=== PATIENT | male | born 1955 | race Caucasian/White ===

== ENCOUNTER → 2020-05-27 08:37 | Outpatient (REF) | payer BC, SELFPAY ==
--- NOTE | 2020-05-27 09:00 | CA_ITS ---
Transthoracic Echocardiogram Patient (Last, First, Middle): Bean Davila K Gender: Male Date of : 1955 Age: 64 Procedure Date: 05/27/2020 Procedure Type: Transthoracic Echocardiogram Location: OP Height: 170.18 cm Weight: 81.65 kg BSA: 1.93 m2 Heart Rate: bpm BP: 100 / 68 mmHg Pin Sticker: [id number] Referring MD: Fabrice Akhtar MD Block Captain: Fabrice Akhtar MD Symptoms: 148.0 PAF(paroxysmal atrial fibrillation 110 Essential HTN Study Quality: Fair ECG Rhythm: Sinus Conclusions: - 1. Normal LV systolic function with mild LVH with pseudonormal filling 2. Mildly dilated left atrium 3. No significant abnormality of cardiac valvular Doppler 4. Normal RV systolic pressure 5. No pericardial effusion Findings Left Ventricle Normal left ventricular size and systolic function. There is mildly increased left ventricular wall thickness. The visually estimated ejection fraction is between 60-65%. Spectral Doppler is indicative of a pseudonormal filling pattern. Right Ventricle Normal right ventricular cavity size and systolic function. Atria The left atrium is mildly dilated. Interatrial shunt cannot be excluded. The right atrium is normal in size. Aortic Valve There is mild thickening of the aortic valve. There is no aortic valve stenosis. There is trace (trivial) aortic valve regurgitation. Mitral Valve Likely normal mitral valve structure and function. There is trace mitral valve regurgitation. There is no mitral valve stenosis. Pulmonic Valve The pulmonic valve was not well visualized. Tricuspid Valve Likely normal tricuspid valve structure and function. There is trace tricuspid valve regurgitation. The right ventricular systolic pressure is normal. The right ventricular systolic pressure is 33 mmHg. There is no evidence of pulmonary hypertension. Great Vessels All visible segments of the aorta are normal in size. The pulmonary artery was not well visualized. Pericardium/Pleural There is no evidence of pericardial effusion. Prior Study Comparison Changes noted compared to prior study dated: 05/04/2018. pseudonormal filling pattern noted Measurements 2D Linear Measurements IVSd: 1.21 0.6-0.9/0.6-1.0 cm LVIDd: 4.30 3.9-5.3/4.2-5.9 cm LVIDs: 2.89 2.0-3.6 cm LVPWd: 1.33 0.7-1.1 cm Ao Root: 2.37 2.1-3.5 cm LV Mass: 249.50 67-162/88-224 g LVOT Diam: 1.96 3.0+(-)1.3 cm Mitral Valve MV Pk E: 0.98 MV PK A: 0.47 MV Decel Time: 218.34 E/A: 2.07 Decel Kings: 4.49 Aortic Valve AoV Pk Alfredo: 1.93 AoV Pk Grad: 14.86 LVOT LVOT Pk Alfredo: 1.30 LVOT Mn Alfredo: 0.80 LVOT VTI: 0.27 LVOT Pk Grad: 6.80 LVOT Mn Grad: 2.99 LVOT Diam: 1.96 LVOT Area: 3.03 Diastolic Function MV Pk E: 0.98 MV Pk A: 0.47 E/A: 2.07 Tricuspid Valve TR Pk Alfredo: 2.75 TR Pk Grad: 30.29 RA Press: 3.00 RVSP: 33.00 Great Vessels Aorta Ao Root-2D: 2.37 2.0-3.7 cm Ao Asc: 3.13 2.1-3.4 cm Updated in Other Vendor System with Status of Final Fabrice Akhtar MD electronically signed on 05/27/2020 2:42:15 PM with status of Final
== END ==
LOC: HO.CARD 08:37
PROVIDERS: PCP Internal Medicine; Visit Provider Internal Medicine Cardiovascular Disease
DX: I48.0 Paroxysmal atrial fibrillation (principal); I10 Essential (primary) hypertension
CPT/HCPCS: 93306

== ENCOUNTER → 2020-10-05 08:41 | Outpatient (BNVA) | payer BC, SELFPAY | PROVIDERS: PCP Internal Medicine; Visit Provider Internal Medicine Cardiovascular Disease | DX: I48.0 Paroxysmal atrial fibrillation (principal); I10 Essential (primary) hypertension; Z79.899 Other long term (current) drug therapy | CPT/HCPCS: 93005 ==

== ENCOUNTER → 2021-04-06 09:24 | Outpatient (BNVA) | payer BC, SELFPAY | PROVIDERS: PCP Internal Medicine; Referring Provider Internal Medicine; Visit Provider Internal Medicine Cardiovascular Disease | DX: I48.0 Paroxysmal atrial fibrillation (principal); I10 Essential (primary) hypertension; I25.10 Atherosclerotic heart disease of native coronary artery without angina pectoris; E11.9 Type 2 diabetes mellitus without complications | CPT/HCPCS: 93005 ==

== ENCOUNTER 2021-05-21 08:15 | Outpatient (REF) | payer BC, SELFPAY ==
[2021-05-21 11:25] LABS: MANUAL DIFF FLAG NO
[2021-05-21 11:41] LABS: Basophils Percent Auto 0.6 % (0-2); Eosinophils Absolute Auto 0.2 X10*3/uL (0.0-0.4); Eosinophils Percent Auto 2.9 % (0-4); Hematocrit 43.3 % (42-52); Imm Gran Abs Auto 0.04 X10*3/uL (0.00-0.03); Imm Gran Pct Auto 0.6 % (0.0-0.4); Lymphocytes Absolute Auto 1.2 X10*3/uL (1.2-4.9); Lymphocytes Percent Auto 20.1 % (20-40); Mean Corpuscular HGB Conc 32.3 g/dl (31.0-36.0); Mean Corpuscular Hemoglobin 32.9 pg (27.0-33.0); Mean Corpuscular Volume 101.9 fL (80-98); Mean Platelet Volume 10.9 fL (9.4-12.4); Monocytes Absolute Auto 0.7 X10*3/uL (0.1-1.2); Neutrophils Percent Auto 64.8 % (45-73); Platelet Count 244 X10*3/uL (160-400); Red Blood Count 4.25 X10*6/uL (4.60-5.80); Red Cell Distribution Width 12.4 % (11.0-16.0); White Blood Count 6.2 X10*3/uL (4.8-10.8)
[2021-05-21 11:48] LABS: Alanine Aminotransferase 22 U/L (0-40); Albumin Level 4.5 g/dL (3.5-5.0); Alkaline Phosphatase 39 U/L (39-117); Anion Gap 15 (12-20); Aspartate Amino Transferase 29 U/L (5-37); Bilirubin Total 0.5 mg/dL (0.0-1.0); Blood Urea Nitrogen 10 mg/dL (9-16); Calcium 9.4 mg/dL (8.4-10.2); Carbon Dioxide 26 mmol/L (22-29); Chloride 103 mmol/L (96-108); Cholesterol 171 mg/dL; Estimated Glomerular Filt Rate > 60; Glucose Fasting 126 mg/dL (60-99); HDL Cholesterol 50 mg/dL; LDL Cholesterol Calculated 81 mg/dl; Potassium 4.2 mmol/L (3.3-5.1); Sodium 140 mmol/L (135-145); Total Protein 7.2 g/dL (6.5-8.0); Triglycerides 204 mg/dL
[2021-05-21 12:02] LABS: Estimated Average Glucose 157 mg/dL; Hemoglobin A1c % 7.1 %
[2021-05-21 12:26] LABS: Creatinine Urine 99.43 mg/dL
[2021-05-23 04:52] LABS: CRP High Sensitivity 1.2 mg/L
== END 2021-05-21 08:16 | disposition home or self-care (01) ==
LOC: HO.HMGCLDS 08:15
PROVIDERS: Internal Medicine Cardiovascular Disease; PCP Internal Medicine; Visit Provider Internal Medicine
DX: E11.21 Type 2 diabetes mellitus with diabetic nephropathy (principal); E66.09 Other obesity due to excess calories; F10.20 Alcohol dependence, uncomplicated; F41.1 Generalized anxiety disorder; I10 Essential (primary) hypertension; E78.5 Hyperlipidemia, unspecified; I48.0 Paroxysmal atrial fibrillation; Z76.89 Persons encountering health services in other specified circumstances
CPT/HCPCS: 36415; 80048; 80053; 80061; 82043; 83036; 85025; 85027; 86141

== ENCOUNTER → 2021-09-30 11:06 | Outpatient (REF) | payer MEDICARE, BC, SELFPAY ==
--- NOTE | 2021-09-30 11:11 | CA_ITS ---
Transthoracic Echocardiogram Patient (Last, First, Middle): Bean Davila K Gender: Male Date of : 1955 Age: 66 Procedure Date: 09/30/2021 Procedure Type: Transthoracic Echocardiogram Location: OP Height: 167.64 cm Weight: 81.65 kg BSA: 1.91 m2 Heart Rate: bpm BP: 126 / 80 mmHg Security Risk Analyst: KIERSTEN Newman MD: Fabrice Akhtar MD Wiper Blender: Fabrice Akhtar MD Symptoms: I48.0 - Paroxysmal atrial fibrillation Study Quality: Fair ECG Rhythm: Sinus Conclusions: - 1. Normal LV systolic and diastolic function 2. Normal cardiac valvular Doppler 3. Normal RV systolic pressure 4. No gross pericardial effusion Findings Left Ventricle Normal left ventricular size, thickness, and systolic function. The visually estimated ejection fraction is between 60-65%. Spectral Doppler is indicative of a normal filling pattern. Right Ventricle Normal right ventricular cavity size and systolic function. Atria The left atrium is likely dilated. There is no evidence of interatrial shunt. The right atrium is normal in size. Aortic Valve There is mild calcification of the aortic valve. There is mild thickening of the aortic valve. There is no aortic valve stenosis. There is no aortic valve regurgitation. Mitral Valve There is mild anterior mitral leaflet thickening. There is mild mitral annular calcification. There is trace mitral valve regurgitation. There is no mitral valve stenosis. Pulmonic Valve The pulmonic valve was not well visualized. Tricuspid Valve Likely normal tricuspid valve structure and function. There is mild tricuspid valve regurgitation. The right ventricular systolic pressure is normal. The right ventricular systolic pressure is 30 mmHg. Normal right atrial pressure. There is no evidence of pulmonary hypertension. Great Vessels All visible segments of the aorta are normal in size. The pulmonary artery was not well visualized. Small plaque is seen in the sino tubular ridge. Venous The inferior vena cava is normal in size and collapses greater than 50% with inspiration. Pericardium/Pleural There is no evidence of pericardial effusion. Prior Study Comparison No significant change compared to prior study dated: 05/27/2020. Measurements 2D Linear Measurements IVSd: 1.12 0.6-0.9/0.6-1.0 cm LVIDd: 4.70 3.9-5.3/4.2-5.9 cm LVIDd Index: 2.46 2.4-3.2/2.2-3.1 cm/m2 LVIDs: 3.47 2.0-3.6 cm LVPWd: 1.04 0.7-1.1 cm LA Diam: 4.00 2.7-3.8/3.0-4.0 cm LAIDs Index: 2.09 1.5-2.3 cm/m2 LV Mass: 227.77 67-162/88-224 g LV Mass Index: 119.25 43-95/49-115 g/m2 LVOT Diam: 2.00 3.0+(-)1.3 cm 2D Systolic Function EF 4C: 56.40 >55% EF 2C: 66.60 >55% EF BiP: 61.70 >55% Mitral Valve MV Pk E: 1.06 MV PK A: 0.64 MV Decel Time: 270.00 E/A: 1.70 E'Lateral: 11.00 E'Medial: 8.16 E/E' Med: 13.00 E/E' Lat: 9.60 PHT: 79.00 MVA PHT: 2.78 Decel Williams: 3.91 Aortic Valve AoV Pk Alfredo: 2.07 AoV Mn Alfredo: 1.29 AoV VTI: 0.39 AoV Pk Grad: 17.00 Aov Mn Grad: 8.00 MIKE Cont.VTI: 2.23 LVOT LVOT Pk Alfredo: 1.51 LVOT Mn Alfredo: 0.94 LVOT VTI: 0.28 LVOT Pk Grad: 9.00 LVOT Mn Grad: 4.00 LVOT Diam: 2.00 LVOT Area: 3.14 Diastolic Function MV Pk E: 1.06 MV Pk A: 0.64 E/A: 1.70 E'Medial: 8.16 E/E' Med: 13.00 E' Laterial: 11.00 E/E' Lat: 9.60 Right Ventricle TAPSE (mm): 29.50 TVS' Alfredo: 18.40 Tricuspid Valve TR Pk Alfredo: 2.32 TR Pk Grad: 22.00 RA Press: 8.00 RVSP: 30.00 Great Vessels Aorta Sinus of Valsalva: 2.90 2.0-3.5 cm Ao Asc: 3.20 2.1-3.4 cm Updated in Other Vendor System with Status of Final Fabrice Akhtar MD electronically signed on 10/01/2021 3:29:04 PM with status of Final
== END ==
LOC: HO.CARD 11:06
PROVIDERS: PCP Internal Medicine; Visit Provider Internal Medicine Cardiovascular Disease
DX: I48.0 Paroxysmal atrial fibrillation (principal)
CPT/HCPCS: 93306

== ENCOUNTER → 2021-10-11 08:38 | Outpatient (BNVA) | payer MEDICARE, BC, SELFPAY | PROVIDERS: PCP Internal Medicine; Referring Provider Internal Medicine; Visit Provider Internal Medicine Cardiovascular Disease | DX: I48.0 Paroxysmal atrial fibrillation (principal); I10 Essential (primary) hypertension | CPT/HCPCS: 93005; 99212 ==

== ENCOUNTER 2022-03-11 07:01 | Outpatient (REF) | payer MEDICARE, BC, SELFPAY ==
[2022-03-11 11:13] LABS: MANUAL DIFF FLAG NO
[2022-03-11 11:20] LABS: Basophils Absolute Auto 0.1 X10*3/uL (0.0-0.2); Basophils Percent Auto 0.9 % (0-2); Eosinophils Absolute Auto 0.2 X10*3/uL (0.0-0.4); Eosinophils Percent Auto 4.1 % (0-4); Hematocrit 43.8 % (42.0-52.0); Hemoglobin 14.4 g/dl (14.0-18.0); Imm Gran Abs Auto 0.02 X10*3/uL (0.00-0.03); Imm Gran Pct Auto 0.4 % (0.0-0.4); Lymphocytes Absolute Auto 1.1 X10*3/uL (1.2-4.9); Lymphocytes Percent Auto 19.1 % (20-40); Mean Corpuscular HGB Conc 32.9 g/dl (31.0-36.0); Mean Corpuscular Hemoglobin 31.9 pg (27.0-33.0); Mean Corpuscular Volume 96.9 fL (80.0-98.0); Mean Platelet Volume 11.3 fL (9.4-12.4); Monocytes Absolute Auto 0.7 X10*3/uL (0.1-1.2); Monocytes Percent Auto 12.1 % (2-11); Neutrophils Absolute Auto 3.6 x10*3/uL (2.0-8.3); Neutrophils Percent Auto 63.4 % (45-73); Platelet Count 222 X10*3/uL (160-400); Red Blood Count 4.52 X10*6/uL (4.60-5.80); Red Cell Distribution Width 13.1 % (11.0-16.0); White Blood Count 5.6 X10*3/uL (4.8-10.8)
[2022-03-11 11:29] LABS: Estimated Average Glucose 203 mg/dL; Hemoglobin A1c % 8.7 %
[2022-03-11 11:40] LABS: Alanine Aminotransferase 41 U/L (0-40); Albumin Level 4.1 g/dL (3.5-5.0); Alkaline Phosphatase 80 U/L (39-117); Anion Gap 17 (12-20); Aspartate Amino Transferase 38 U/L (5-37); Bilirubin Total 0.7 mg/dL (0.0-1.0); Blood Urea Nitrogen 7 mg/dL (9-16); Calcium 9.3 mg/dL (8.4-10.2); Carbon Dioxide 28 mmol/L (22-29); Chloride 99 mmol/L (96-108); Cholesterol 247 mg/dL; Estimated Glomerular Filt Rate > 60; Glucose Fasting 262 mg/dL (60-99); HDL Cholesterol 45 mg/dL; Potassium 4.2 mmol/L (3.3-5.1); Sodium 140 mmol/L (135-145); Total Protein 6.9 g/dL (6.5-8.0); Triglycerides 687 mg/dL
[2022-03-11 11:51] LABS: TSH reflex Free T4 1.47 uIU/mL (0.32-4.0)
[2022-03-11 11:57] LABS: Creatinine Urine 73.33 mg/dL; Microalbum/Creatinine Ratio Ur 542.7 ug/mg cr
[2022-03-11 12:11] LABS: Vitamin B12 < 146 pg/mL (200-900)
== END 2022-03-11 07:02 | disposition home or self-care (01) ==
LOC: HO.HMGCLDS 07:01
PROVIDERS: PCP Internal Medicine; Visit Provider Internal Medicine
DX: Z00.01 Encounter for general adult medical examination with abnormal findings (principal); E11.21 Type 2 diabetes mellitus with diabetic nephropathy; E11.40 Type 2 diabetes mellitus with diabetic neuropathy, unspecified; F41.1 Generalized anxiety disorder; I10 Essential (primary) hypertension; I48.0 Paroxysmal atrial fibrillation
CPT/HCPCS: 36415; 80053; 80061; 82043; 82607; 83036; 84443; 85025

== ENCOUNTER → 2022-04-11 08:55 | Outpatient (BNVA) | payer MEDICARE, BC, SELFPAY | PROVIDERS: PCP Internal Medicine; Referring Provider Internal Medicine; Visit Provider Internal Medicine Cardiovascular Disease | DX: Z79.899 Other long term (current) drug therapy (principal) | CPT/HCPCS: 93005 ==

== ENCOUNTER 2022-10-13 08:49 | Outpatient (REF) | payer MEDICARE, BC, SELFPAY ==
[2022-10-13 10:12] LABS: Hematocrit 37.3 % (42.0-52.0); Hemoglobin 11.1 g/dl (14.0-18.0); Mean Corpuscular HGB Conc 29.8 g/dl (31.0-36.0); Mean Corpuscular Hemoglobin 26.7 pg (27.0-33.0); Mean Corpuscular Volume 89.7 fL (80.0-98.0); Mean Platelet Volume 10.2 fL (9.4-12.4); Platelet Count 289 X10*3/uL (160-400); Red Blood Count 4.16 X10*6/uL (4.60-5.80); Red Cell Distribution Width 13.6 % (11.0-16.0); White Blood Count 7.2 X10*3/uL (4.8-10.8)
[2022-10-13 11:06] LABS: Anion Gap 13 (12-20); Blood Urea Nitrogen 7 mg/dL (9-16); Calcium 8.8 mg/dL (8.4-10.2); Carbon Dioxide 31 mmol/L (22-29); Chloride 98 mmol/L (96-108); Estimated Glomerular Filt Rate > 60; Potassium 4.3 mmol/L (3.3-5.1); Sodium 138 mmol/L (135-145)
[2022-10-13 11:12] LABS: Glucose Random 374 mg/dL (60-115)
== END 2022-10-13 08:50 | disposition home or self-care (01) ==
LOC: HO.LAB 08:49
PROVIDERS: PCP Internal Medicine; Referring Provider Internal Medicine; Visit Provider Internal Medicine Cardiovascular Disease
DX: I48.0 Paroxysmal atrial fibrillation (principal); R06.09 Other forms of dyspnea; I10 Essential (primary) hypertension
CPT/HCPCS: 36415; 80048; 85027; 93005; 99212

== ENCOUNTER 2022-12-08 08:22 | Outpatient (REF) | payer MEDICARE, BC, SELFPAY ==
[2022-12-08 11:58] LABS: Anion Gap 16 (12-20); Blood Urea Nitrogen 6 mg/dL (9-16); Calcium 8.7 mg/dL (8.4-10.2); Carbon Dioxide 28 mmol/L (22-29); Chloride 104 mmol/L (96-108); Cholesterol 100 mg/dL; Estimated Glomerular Filt Rate > 60; Glucose Random 250 mg/dL (60-115); HDL Cholesterol 42 mg/dL; LDL Cholesterol Calculated 23 mg/dl; Potassium 4.7 mmol/L (3.3-5.1); Sodium 143 mmol/L (135-145); Triglycerides 176 mg/dL
[2022-12-08 12:20] LABS: Creatinine Urine 133.58 mg/dL; Microalbum/Creatinine Ratio Ur 206.6 ug/mg cr
== END 2022-12-08 08:23 | disposition home or self-care (01) ==
LOC: HO.HMGCLDS 08:22
PROVIDERS: PCP Internal Medicine; Visit Provider Pharmacist
DX: E11.9 Type 2 diabetes mellitus without complications (principal)
CPT/HCPCS: 36415; 80048; 80061; 82043

== ENCOUNTER 2023-01-07 08:25 | Outpatient (REF) | payer MEDICARE, BC, SELFPAY ==
[2023-01-07 08:36] LABS: MANUAL DIFF FLAG NO
[2023-01-07 08:43] LABS: Basophils Absolute Auto 0.1 X10*3/uL (0.0-0.2); Basophils Percent Auto 1.5 % (0-2); Eosinophils Absolute Auto 0.4 X10*3/uL (0.0-0.4); Eosinophils Percent Auto 6.5 % (0-4); Hematocrit 35.6 % (42.0-52.0); Hemoglobin 10.4 g/dl (14.0-18.0); Imm Gran Abs Auto 0.02 X10*3/uL (0.00-0.03); Imm Gran Pct Auto 0.3 % (0.0-0.4); Lymphocytes Absolute Auto 1.3 X10*3/uL (1.2-4.9); Lymphocytes Percent Auto 21.8 % (20-40); Mean Corpuscular HGB Conc 29.2 g/dl (31.0-36.0); Mean Corpuscular Hemoglobin 23.7 pg (27.0-33.0); Mean Corpuscular Volume 81.3 fL (80.0-98.0); Monocytes Absolute Auto 0.7 X10*3/uL (0.1-1.2); Neutrophils Absolute Auto 3.6 x10*3/uL (2.0-8.3); Neutrophils Percent Auto 58.9 % (45-73); Platelet Count 301 X10*3/uL (160-400); Red Blood Count 4.38 X10*6/uL (4.60-5.80); Red Cell Distribution Width 15.8 % (11.0-16.0); White Blood Count 6.2 X10*3/uL (4.8-10.8)
[2023-01-07 09:01] LABS: INTERNATIONAL NORM RATIO 1.2 (0.9-1.1); Prothrombin Time 13.5 SEC (10.0-13.1)
[2023-01-07 09:13] LABS: Anion Gap 15 (12-20); Blood Urea Nitrogen 9 mg/dL (9-16); Calcium 8.6 mg/dL (8.4-10.2); Carbon Dioxide 26 mmol/L (22-29); Chloride 104 mmol/L (96-108); Estimated Glomerular Filt Rate > 60; Glucose Random 185 mg/dL (60-115); Potassium 4.8 mmol/L (3.3-5.1); Sodium 140 mmol/L (135-145)
== END 2023-01-07 08:26 | disposition home or self-care (01) ==
LOC: HO.LAB 08:25
PROVIDERS: PCP Internal Medicine; Visit Provider Internal Medicine Cardiovascular Disease
DX: M62.89 Other specified disorders of muscle (principal); R06.02 Shortness of breath; R29.898 Other symptoms and signs involving the musculoskeletal system; I10 Essential (primary) hypertension
CPT/HCPCS: 36415; 80048; 85025; 85610

== ENCOUNTER → 2023-02-09 23:59 | Outpatient (BNV) | payer MEDICARE, BC, SELFPAY | PROVIDERS: PCP Internal Medicine; Visit Provider Internal Medicine Cardiovascular Disease | DX: I20.0 Unstable angina (principal); R93.1 Abnormal findings on diagnostic imaging of heart and coronary circulation | CPT/HCPCS: 93458; 99152 ==

== ENCOUNTER → 2023-03-30 09:53 | Outpatient (REF) | payer BC, MEDICARE, SELFPAY ==
--- NOTE | 2023-03-30 09:57 | CA_ITS ---
Transthoracic Echocardiogram Patient (Last, First, Middle): Bean Davila K Gender: Male Date of : 1955 Age: 67 Procedure Date: 03/30/2023 Procedure Type: Transthoracic Echocardiogram Location: OP Height: 172.72 cm Weight: 87.09 kg BSA: 2.01 m2 Heart Rate: 100 bpm BP: 125 / 82 mmHg Quality Control Inspector Heading: CORINE Referring MD: Fabrice Akhtar MD Symptoms: I48.0 - Paroxysmal atrial fibrillation Study Quality: Adequate ECG Rhythm: Sinus Conclusions: - 1. Low normal LV ejection fraction of 50-55% with impaired relaxation filling pattern 2. Mildly dilated left atrium 3. Normal cardiac valvular Doppler 4. No gross pericardial effusion Findings Procedure Information Contrast agent, definity, is being given per protocol without apparent complications. Left Ventricle Normal left ventricular cavity size. There is normal left ventricular wall thickness. The left ventricular systolic function is low normal. The visually estimated ejection fraction is between 50-55%. Spectral Doppler is indicative of a pseudonormal filling pattern. Right Ventricle Normal right ventricular cavity size. There is mildly decreased right ventricular systolic function. Atria The left atrium is mildly dilated. Interatrial shunt cannot be excluded. The right atrium is likely dilated. Aortic Valve There is mild calcification of the aortic valve. There is no aortic valve stenosis. There is no aortic valve regurgitation. Mitral Valve There is mild anterior and posterior mitral leaflet thickening. There is trace mitral valve regurgitation. There is no mitral valve stenosis. Pulmonic Valve The pulmonic valve was not well visualized. Tricuspid Valve Likely normal tricuspid valve structure and function. Tricuspid regurgitation envelope is inadequate for calculation of right ventricular systolic pressure. Normal right atrial pressure. Great Vessels All visible segments of the aorta are normal in size. The pulmonary artery was not well visualized. Venous The inferior vena cava is normal in size and collapses greater than 50% with inspiration. Pericardium/Pleural There is no evidence of pericardial effusion. Prior Study Comparison No significant change compared to prior study dated: 09/30/2021. Measurements 2D Linear Measurements IVSd: 1.04 0.6-0.9/0.6-1.0 cm LVIDd: 4.68 3.9-5.3/4.2-5.9 cm LVIDd Index: 2.33 2.4-3.2/2.2-3.1 cm/m2 LVIDs: 3.60 2.0-3.6 cm LVPWd: 0.95 0.7-1.1 cm LA Diam: 4.00 2.7-3.8/3.0-4.0 cm LAIDs Index: 1.99 1.5-2.3 cm/m2 LV Mass: 201.73 67-162/88-224 g LV Mass Index: 100.36 43-95/49-115 g/m2 LVOT Diam: 2.00 3.0+(-)1.3 cm 2D Systolic Function EF 4C: 40.10 >55% EF 2C: 65.60 >55% EF BiP: 54.00 >55% Mitral Valve MV Pk E: 1.15 MV PK A: 0.55 MV Decel Time: 180.00 E/A: 2.10 E'Lateral: 8.70 E'Medial: 8.49 E/E' Med: 13.50 E/E' Lat: 13.20 PHT: 53.00 MVA PHT: 4.15 Decel [place]: 6.39 Aortic Valve AoV Pk Alfredo: 1.75 AoV Mn Alfredo: 1.18 AoV VTI: 0.30 AoV Pk Grad: 12.00 Aov Mn Grad: 6.00 MIKE Cont.VTI: 1.98 LVOT LVOT Pk Alfredo: 1.07 LVOT Mn Alfredo: 0.71 LVOT VTI: 0.19 LVOT Pk Grad: 5.00 LVOT Mn Grad: 2.00 LVOT Diam: 2.00 LVOT Area: 3.14 Diastolic Function MV Pk E: 1.15 MV Pk A: 0.55 E/A: 2.10 E'Medial: 8.49 E/E' Med: 13.50 E' Laterial: 8.70 E/E' Lat: 13.20 Right Ventricle TAPSE (mm): 14.20 TVS' Alfredo: 13.10 Tricuspid Valve RA Press: 3.00 Great Vessels Aorta Sinus of Valsalva: 2.90 2.0-3.[address] [place]: 2.15 1.7-3.4 cm Ao Asc: 3.30 2.1-3.4 cm Updated in Other Vendor System with Status of Final Fabrice Akhtar MD electronically signed on 03/31/2023 3:04:21 PM with status of Final
== END ==
LOC: HO.CARD 09:53
PROVIDERS: Visit Provider Internal Medicine Cardiovascular Disease
DX: I48.0 Paroxysmal atrial fibrillation (principal); I10 Essential (primary) hypertension
CPT/HCPCS: 93306; Q9957

== ENCOUNTER → 2023-03-30 09:57 | Outpatient (BNV) | payer BC, MEDICARE, SELFPAY | PROVIDERS: Visit Provider Internal Medicine Cardiovascular Disease | DX: I35.8 Other nonrheumatic aortic valve disorders (principal); I34.89 Other nonrheumatic mitral valve disorders | CPT/HCPCS: 93306 ==

== ENCOUNTER 2023-05-02 11:20 | Outpatient (AMB) | payer BC, MEDICARE, SELFPAY ==
--- NOTE | 2023-05-02 11:23 | A.OFFVIS_ITS ---
Intake Vital Signs 05/02/23 11:27 Height 5 ft 8 in Weight 189 lb 9.561 oz BMI 28.8 BP 116/66 Blood Pressure Location Lt brachial Position Sitting Pulse 76 Intake Visit Reasons: fu after echo Intake Note: Follow-up after echo post bypass c/o some sob Facility Technician Required: No Allergies codeine [CODEINE] Allergy (Unknown, Verified 12/09/22 10:39) UNKNOWN Medication List - Last Reconciled 05/02/23 by Fabrice Akhtar MD aspirin (Adult Aspirin Regimen) 81 mg PO DAILY atorvastatin 40 mg PO DAILY carvedilol 3.125 mg PO BID clopidogrel 75 mg PO DAILY cyanocobalamin (vitamin B-12) 1,000 mcg PO DAILY 90 days dapagliflozin propanediol (Farxiga) 10 mg PO DAILY dulaglutide (Trulicity) 1.5 mg subcut QWEEK flash glucose sensor ([employer] Sean 14 Day Sensor kit) every 14 days [[employer]style sean reader As directed] furosemide 20 mg PO DAILY insulin glargine-yfgn (Semglee (insulin glargine-yfgn) Pen) units subcut insulin lispro (Humalog KwikPen (U-100) Insulin) subcut metformin 1,000 mg PO BID rivaroxaban (Xarelto) 20 mg PO DAILY 90 days sacubitril-valsartan 24-26 mg (Entresto) 1 tab PO BID spironolactone 25 mg PO DAILY HPI HPI Comments History of Present Illness Details Bean comes for follow-up after recent multiple hospitalization. As you aware he underwent cardiac catheterization January for progressive shortness of breath with angina equivalent and subsequently cardiac catheterization showed severe 3 vessel disease for which she then underwent urgent 3 vessel coronary artery bypass grafting including saphenous venous graft to the LAD, OM branch in to the RCA territory along with atrial fibrillation surgical treatment. He was then discharged home subsequently and had a follow-up echocardiogram here in February which has shown LVEF of 50-55% as a postoperative follow-up. He was participating in phase 2 cardiac rehabilitation. However is admitted again on April 17 with sudden-onset shortness of breath. Does listed noncompliance in his medication however he subsequently had an echocardiogram shows significant reduction LV ejection fraction regional wall motion abnormality and underwent a cardiac catheterization again which had shown failure of the graft to the LAD territory in underwent a drug-eluting stent into the [place] left main into the LAD territory. He was subsequently started on neurohormonal modulation appropriately and diuresed and discharged home on medical therapy. He is currently on triple therapy with aspirin, clopidogrel and Xarelto. He has been told to take aspirin for total of 4 months and continue Plavix. He is doing well at this point time. Has some ecchymosis at the side of the cardiac catheterization. Denies any prolonged palpitation irregular heartbeat. He says leg swelling has improved significantly. His breathing is improved. Denies any lightheadedness, syncope. [facility] Medical History CAD (coronary artery disease) Heart failure with reduced ejection fraction HTN (hypertension) Paroxysmal atrial fibrillation Diabetic nephropathy associated with type 2 diabetes mellitus Diabetes type 2, controlled Surgical History (Updated 05/02/23 @ 12:24 by Fabrice Akhtar MD) Stented coronary artery S/P CABG x 3 Family History Father CVD (cardiovascular disease) S/P triple vessel bypass Mother CVD (cardiovascular disease) Sudden cardiac Other Substance use disorder Social History Housing: Apartment Alcohol intake: current Alcohol intake frequency: 3 or more drinks per day Alcohol type: hard liquor Patient Tobacco Use Status: Former Tobacco user (30 years ago ) Tobacco use type: Cigarette Years Smoked: 20 years e-Cigarette/Vaping Use: Never Used Current occupational status: retired Cognitive needs: No Hearing needs: No Vision needs: Yes Physical Exam Vital Signs: Last Vital Signs Pulse 76 05/02/23 11:27 BP 116/66 05/02/23 11:27 BMI result Body Mass Index 28.8 Const General: cooperative, comfortable, no acute distress, alert, awake and other (Pale appearing) Nutritional Appearance: overweight Orientation/consciousness: patient oriented x3 Limitations: no limitations Neck Neck: Yes trachea midline, Yes supple and Yes no JVD Chest Chest palpation & inspection: other (Well-healed sternotomy scar) Resp Effort & Inspection: normal respiratory effort Auscultation: clear to auscultation bilaterally Cardio Jugular venous distension: no JVD Palpation: normal PMI Rate: regular rate Rhythm: regular rhythm Heart sounds: S1 normal heart sound present and S2 normal heart sound present Neuro General: patient oriented x3 and no focal motor deficits Extrem General: Yes no clubbing, cyanosis or edema Psych Appearance: grossly normal Assessment & Plan Assessment & Plan (1) Heart failure with reduced ejection fraction: Code(s): I50.20 - Unspecified systolic (congestive) heart failure Plan: Sudden-onset acute heart failure recently most likely due to acute graft failure to the LAD territory status post stenting of the left main and LAD. He is curr ently on appropriate medical therapy. Continue current neurohormonal modulation with Entresto, carvedilol, spironolactone as well as Jardiance therapy. Continue current low-dose diuretic therapy. Importance of heart failure management was discussed. Daily weight monitoring avoidance of salt loading was discussed. Understands and agrees. Additional diuretics as need be. Participate in phase 2 cardiac rehab. Follow-up limited echocardiogram in 6 weeks time and if he has persistent significant LV systolic dysfunction may need to consider ICD therapy for primary prevention. This was discussed with him. He understands and agrees. (2) CAD (coronary artery disease): Code(s): I25.10 - Atherosclerotic heart disease of [place] coronary artery without angina pectoris Plan: CAD with 3 vessel surgical revascularization January this year followed by SVG graft failure to LAD requiring drug-eluting stent from left main to LAD. Currently doing well without any symptoms of angina. Recommend strongly to participate in phase 2 cardiac rehabilitation. Continue triple therapy for total of month and followed by dual therapy with Plavix and Xarelto for 1 year. Continue aggressive risk factor modification. Blood pressure is currently well optimized target goal blood pressure less than 130/80. Continue aggressive management diabetes goal hemoglobin A1c less than 7%. Also continue high- intensity statin therapy target goal LDL closer to 60 mg/dL. Advised lipid panel 6 weeks time. Will follow-up in 6 weeks time. (3) Paroxysmal atrial fibrillation: Code(s): I48.0 - Paroxysmal atrial fibrillation Plan: Paroxysmal atrial fibrillation which has remained suppressed. Has done well with rhythm control approach will continue pursue rhythm control approach. Avoid class 1 C agents in the future. If he has recurrent atrial fibrillation may require alternative antiarrhythmic drug therapy such as Multaq. Continue full oral anticoagulation for life currently on Xarelto therapy. Will follow-up basic metabolic profile in 6 weeks time. Follow up in the clinic in 6 weeks time, sooner p.r.n.. Greater than 40 minutes was spent in managing his complex care. Orders: Orders CA echo limited 6 Weeks I25.5 - Ischemic cardiomyopathy, I42.9 - Cardiomyopathy, unspecified Lipid Panel 6 Weeks I25.10 - Atherosclerotic heart disease of [place] coronary artery without angina pectoris, Z95.5 - Presence of coronary angioplasty implant and graft Basic Metabolic Panel 6 Weeks Z95.5 - Presence of coronary angioplasty implant and graft Medications: New atorvastatin reduced dose 40 mg (2 x 20 mg) PO DAILY 90 tabs 1RF carvedilol 3.125 mg PO BID 180 tabs 1RF dapagliflozin propanediol (Farxiga) 10 mg PO DAILY 90 tabs 1RF sacubitril-valsartan 24-26 mg (Entresto) 1 tab PO BID 180 tabs 1RF spironolactone 25 mg PO DAILY 90 tabs 1RF clopidogrel 75 mg PO DAILY 90 tabs 1RF furosemide 20 mg PO DAILY 90 tabs 1RF Refilled rivaroxaban (Xarelto) 20 mg PO DAILY 90 tabs 3RF 90 days Coding Level of Care Code Est Pt Level 5 (65789) Diagnoses Heart failure with reduced ejection fraction I50.20 CAD (coronary artery disease) I25.10 Paroxysmal atrial fibrillation I48.0
[2023-05-02 11:27] VITALS: BP 116/66; PULSE 76; BMI 28.8
== END 2023-05-02 14:14 | disposition home or self-care (01) ==
PROVIDERS: PCP Internal Medicine; Visit Provider Internal Medicine Cardiovascular Disease
DX: I50.20 Unspecified systolic (congestive) heart failure (principal); I25.10 Atherosclerotic heart disease of native coronary artery without angina pectoris; I48.0 Paroxysmal atrial fibrillation
CPT/HCPCS: 99215

== ENCOUNTER → 2023-05-02 11:20 | Outpatient (BNVA) | payer BC, MEDICARE, SELFPAY | PROVIDERS: PCP Internal Medicine; Visit Provider Internal Medicine Cardiovascular Disease ==

== ENCOUNTER → 2023-05-30 09:30 | Outpatient (REF) | payer BC, MEDICARE, SELFPAY ==
--- NOTE | 2023-05-30 09:32 | CA_ITS ---
Transthoracic Echocardiogram Patient (Last, First, Middle): Bean Davila K Gender: Male Date of : 1955 Age: 67 Procedure Date: 05/30/2023 Procedure Type: Transthoracic Echocardiogram Location: OP Height: 170.18 cm Weight: 82.1 kg BSA: 1.94 m2 Heart Rate: bpm BP: 100 / 56 mmHg Transit Police Officer: TO Referring MD: Fabrice Akhtar MD Symptoms: I42.9 - Cardiomyopathy, unspecified Study Quality: Fair/Contrast ECG Rhythm: Sinus Conclusions: - The left ventricular systolic function is normal. The visually estimated ejection fraction is between 60-65%. - The basal inferior segment is hypokinetic. Findings Left Ventricle Normal left ventricular cavity size. The left ventricular systolic function is normal. The visually estimated ejection fraction is between 60-65%. There is mild septal asymmetric hypertrophy. Wall Motion Rest Echo Findings The basal inferior segment is hypokinetic. Prior Study Comparison No significant change compared to prior study dated: 03/30/2023. (images reviewed) Measurements 2D Linear Measurements IVSd: 1.11 0.6-0.9/0.6-1.0 cm LVIDd: 4.01 3.9-5.3/4.2-5.9 cm LVIDd Index: 2.07 2.4-3.2/2.2-3.1 cm/m2 LVIDs: 2.73 2.0-3.6 cm LVPWd: 1.02 0.7-1.1 cm LV Mass: 173.67 67-162/88-224 g LV Mass Index: 89.52 43-95/49-115 g/m2 LVOT Diam: 2.00 3.0+(-)1.3 cm 2D Systolic Function EF 4C: 70.30 >55% LVOT LVOT Pk Alfredo: 1.10 LVOT Mn Alfredo: 0.70 LVOT VTI: 0.18 LVOT Pk Grad: 5.00 LVOT Mn Grad: 2.00 LVOT Diam: 2.00 LVOT Area: 3.14 Tricuspid Valve RA Press: 3.00 Updated in Other Vendor System with Status of Final Sam Hernandez MD electronically signed on 05/31/2023 12:31:07 PM with status of Final
== END ==
LOC: HO.CARD 09:30
PROVIDERS: PCP Internal Medicine; Visit Provider Internal Medicine Cardiovascular Disease
DX: I42.9 Cardiomyopathy, unspecified (principal); I25.5 Ischemic cardiomyopathy
CPT/HCPCS: 93308; Q9957

== ENCOUNTER → 2023-05-30 09:32 | Outpatient (BNV) | payer BC, MEDICARE, SELFPAY | PROVIDERS: PCP Internal Medicine; Visit Provider Internal Medicine | DX: I42.9 Cardiomyopathy, unspecified (principal) | CPT/HCPCS: 93308 ==

== ENCOUNTER 2023-06-13 10:46 | Outpatient (REF) | payer BC, MEDICARE, SELFPAY ==
[2023-06-13 14:10] LABS: Anion Gap 14 (12-20); Blood Urea Nitrogen 21 mg/dL (9-16); Calcium 8.7 mg/dL (8.4-10.2); Carbon Dioxide 26 mmol/L (22-29); Chloride 102 mmol/L (96-108); Cholesterol 111 mg/dL (<200); Estimated Glomerular Filt Rate 43; Glucose Random 271 mg/dL (60-115); HDL Cholesterol 45 mg/dL (>40); LDL Cholesterol Calculated 39 mg/dL (<100); Potassium 4.8 mmol/L (3.3-5.1); Sodium 137 mmol/L (135-145); Triglycerides 135 mg/dL (<150)
== END 2023-06-13 10:47 | disposition home or self-care (01) ==
LOC: HO.HMGCLDS 10:46
PROVIDERS: PCP Internal Medicine; Visit Provider Internal Medicine Cardiovascular Disease
DX: I25.10 Atherosclerotic heart disease of native coronary artery without angina pectoris (principal); Z95.5 Presence of coronary angioplasty implant and graft
CPT/HCPCS: 36415; 80048; 80061

== ENCOUNTER 2023-06-15 12:23 | Outpatient (AMB) | payer BC, MEDICARE, SELFPAY ==
[2023-06-15 12:36] VITALS: BP 132/80; PULSE 70; BMI 30.2
--- NOTE | 2023-06-15 12:36 | A.OFFVIS_ITS ---
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 Required: No Allergies codeine [CODEINE] Allergy (Unknown, Verified 12/09/22 10:39) UNKNOWN Medication List - Last Reconciled 06/15/23 by Fabrice Akhtar MD atorvastatin 40 mg PO DAILY carvedilol 3.125 mg PO BID clopidogrel 75 mg PO DAILY cyanocobalamin (vitamin B-12) 1,000 mcg PO DAILY 90 days dapagliflozin propanediol (Farxiga) 10 mg PO DAILY dulaglutide (Trulicity) 1.5 mg subcut QWEEK flash glucose sensor (APR Sean 14 Day Sensor kit) every 14 days [Verdeecostyle sean reader As directed] furosemide 20 mg PO DAILY insulin glargine-yfgn (Semglee (insulin glargine-yfgn) Pen) units subcut insulin lispro (Humalog KwikPen (U-100) Insulin) subcut metformin 1,000 mg PO BID rivaroxaban (Xarelto) 20 mg PO DAILY 90 days sacubitril-valsartan 24-26 mg (Entresto) 1 tab PO BID spironolactone 25 mg PO DAILY HPI HPI Comments History of Present Illness Details Bean comes for follow-up. Most recent echocardiogram shows normalized LV ejection fraction to 60 65%. He complains of bilateral thigh and hamstring discomfort with walking associated tiredness. He also complains a lot of lightheadedness when he is standing up or when he is up for long period time. He had a fall related to it. He denies any prolonged palpitation irregular heartbeat. Scheduled to undergo cataract surgery in near future. Denies any exertional chest pain. Participating phase 2 cardiac rehabilitation. [facility] Medical History (Updated 06/15/23 @ 13:00 by Fabrice Akhtar MD) Heart failure with reduced ejection fraction Ischemic cardiomyopathy CAD (coronary artery disease) HTN (hypertension) Paroxysmal atrial fibrillation Diabetic nephropathy associated with type 2 diabetes mellitus Diabetes type 2, controlled Surgical History Stented coronary artery S/P CABG x 3 Family History Father CVD (cardiovascular disease) S/P triple vessel bypass Mother CVD (cardiovascular disease) Sudden cardiac Other Substance use disorder Social History Housing: Apartment Alcohol intake: current Alcohol intake frequency: 3 or more drinks per day Alcohol type: hard liquor Patient Tobacco Use Status: Former Tobacco user (30 years ago ) Tobacco use type: Cigarette Years Smoked: 20 years e-Cigarette/Vaping Use: Never Used Current occupational status: retired Cognitive needs: No Hearing needs: No Vision needs: Yes Review of Systems Const Denies chills, Denies fatigue, Denies fever(s), Denies frequent falls, Denies weakness, Denies weight gain and Denies weight loss ENT Denies dizziness Card Denies chest pain, Denies leg edema, Denies lightheadedness, Denies palpitations, Denies dyspnea, Denies dyspnea on exertion, Denies orthopnea and Denies other (loss of consciousness) Resp Denies cough, Denies dyspnea and Denies dyspnea on exertion GI Denies hematochezia and Denies change in stool character Musc Denies abnormal gait, Denies muscle weakness, Denies numbness, Denies radiating pain into limb and Denies tingling Neuro Denies abnormal gait, Denies dizziness, Denies frequent falls, Denies numbness, Denies tingling and Denies weakness Endo Denies fatigue and Denies palpitations Physical Exam Vital Signs: Last Vital Signs Pulse 70 06/15/23 12:36 BP 132/80 06/15/23 12:36 BMI result Body Mass Index 30.2 Const General: cooperative, comfortable, no acute distress, alert, awake and other (Pale appearing) Nutritional Appearance: overweight Orientation/consciousness: patient oriented x3 Limitations: no limitations Neck Neck: Yes trachea midline, Yes supple and Yes no JVD Chest Chest palpation & inspection: other (Well-healed sternotomy scar) Resp Effort & Inspection: normal respiratory effort Auscultation: clear to auscultation bilaterally Cardio Jugular venous distension: no JVD Palpation: normal PMI Rate: regular rate Rhythm: regular rhythm Heart sounds: S1 normal heart sound present and S2 normal heart sound present Neuro General: patient oriented x3 and no focal motor deficits Extrem General: Yes no clubbing, cyanosis or edema Psych Appearance: grossly normal Assessment & Plan Assessment & Plan (1) CAD (coronary artery disease): Code(s): I25.10 - Atherosclerotic heart disease of [place] coronary artery without angina pectoris Plan: Patient with CAD with 3 vessel coronary bypass grafting with subsequent failure of SVG graft to LAD requiring drug-eluting stent from left main to LAD. At that time he had significantly reduced LV ejection fraction which is now normalized good prognosis with this was discussed. Continue aggressive medical therapy including Plavix for 1 year total. Continue Xarelto as below. Continue aggressive risk factor modification. Blood pressure is currently well optimized but he is having symptoms of orthostatic lightheadedness. Will reduce his furosemide to 10 mg daily and further continue to reduce it and discontinue it if he has no signs of heart failure. See below. Continue aggressive diabetes management. Continue high-intensity statin therapy with target goal LDL less than 70 mg/dL. He is having symptoms suggestive claudication will suggest lower extremity ultrasound with duplex. (2) Heart failure: Code(s): I50.9 - Heart failure, unspecified Plan: Heart failure with reduced ejection fraction in the setting of SVG graft failure. At this point time his LV function is normalized. He still has heart failure syndrome although clinically euvolemic and well compensated. Will reduce Lasix to 10 mg daily and further taper and discontinue it. Advised to continue neurohormonal modulation with carvedilol, Entresto, Farxiga and spironolactone therapy. Advised to monitor blood pressure at home maintain a log. Daily weight monitoring avoidance of salt loading was discussed. Importance of compliance with medication was discussed. Continue with phase 2 cardiac rehabilitation. (3) Paroxysmal atrial fibrillation: Code(s): I48.0 - Paroxysmal atrial fibrillation Plan: Paroxysmal atrial fibrillation has remained suppressed. Doing well from that perspective. Continue rhythm control approac. No need for antiarrhythmic drug therapy. Continue full oral anticoagulation, currently on Xarelto 20 mg daily. Semi annual renal function test should be pursued. Will follow up in the clinic in 3 months time, sooner p.r.n.. Thank you for allowing me to partake in his care Orders: Orders B Type Natriuretic Peptide 10 Days I50.20 - Unspecified systolic (congestive) heart failure US arterial duplex LE BI Today I73.9 - Peripheral vascular disease, unspecified Basic Metabolic Panel 10 Days I50.20 - Unspecified systolic (congestive) heart failure Medications: Changed From furosemide 20 mg PO DAILY 90 tabs 1RF To furosemide 10 mg (1/2 x 20 mg) PO DAILY 90 tabs 1RF Coding Level of Care Code Est Pt Level 4 (70695) Diagnoses CAD (coronary artery disease) I25.10 Heart failure I50.9 Paroxysmal atrial fibrillation I48.0
== END 2023-06-15 13:09 | disposition home or self-care (01) ==
PROVIDERS: PCP Internal Medicine; Visit Provider Internal Medicine Cardiovascular Disease
DX: I25.10 Atherosclerotic heart disease of native coronary artery without angina pectoris (principal); I50.9 Heart failure, unspecified; I48.0 Paroxysmal atrial fibrillation
CPT/HCPCS: 99214

== ENCOUNTER → 2023-06-15 12:23 | Outpatient (BNVA) | payer BC, MEDICARE, SELFPAY | PROVIDERS: PCP Internal Medicine; Visit Provider Internal Medicine Cardiovascular Disease ==

== ENCOUNTER 2023-06-27 08:42 | Outpatient (REF) | payer BC, MEDICARE, SELFPAY ==
[2023-06-27 11:39] LABS: B Type Natriuretic Peptide 528 pg/mL (<100)
[2023-06-27 11:54] LABS: Cholesterol 104 mg/dL (<200); HDL Cholesterol 42 mg/dL (>40); LDL Cholesterol Calculated 37 mg/dL (<100); Triglycerides 125 mg/dL (<150)
[2023-06-27 11:56] LABS: Alanine Aminotransferase 11 U/L (0-40); Albumin Level 3.9 g/dL (3.5-5.0); Alkaline Phosphatase 68 U/L (39-117); Anion Gap 14 (12-20); Aspartate Amino Transferase 21 U/L (5-37); Bilirubin Total 0.4 mg/dL (0.0-1.0); Blood Urea Nitrogen 15 mg/dL (9-16); Calcium 8.3 mg/dL (8.4-10.2); Carbon Dioxide 32 mmol/L (22-29); Chloride 97 mmol/L (96-108); Cholesterol 105 mg/dL (<200); Estimated Glomerular Filt Rate > 60; Glucose Fasting 114 mg/dL (60-99); Glucose Random 114 mg/dL (60-115); HDL Cholesterol 41 mg/dL (>40); LDL Cholesterol Calculated 39 mg/dL (<100); Potassium 3.7 mmol/L (3.3-5.1); Sodium 139 mmol/L (135-145); Triglycerides 125 mg/dL (<150)
[2023-06-27 12:07] LABS: Vitamin B12 287 pg/mL (200-900)
== END 2023-06-27 08:43 | disposition home or self-care (01) ==
LOC: HO.HMGCLDS 08:42
PROVIDERS: Absent Provider Internal Medicine Cardiovascular Disease; PCP Internal Medicine; Visit Provider Internal Medicine
DX: E11.21 Type 2 diabetes mellitus with diabetic nephropathy (principal); I48.0 Paroxysmal atrial fibrillation; E66.09 Other obesity due to excess calories; F41.1 Generalized anxiety disorder; E11.40 Type 2 diabetes mellitus with diabetic neuropathy, unspecified; G47.9 Sleep disorder, unspecified; E53.8 Deficiency of other specified B group vitamins; I11.0 Hypertensive heart disease with heart failure; I50.20 Unspecified systolic (congestive) heart failure; E78.5 Hyperlipidemia, unspecified
CPT/HCPCS: 36415; 80048; 80053; 80061; 82607; 83880

== ENCOUNTER 2023-06-28 08:32 | Outpatient (AMB) | payer BC, MEDICARE, SELFPAY ==
[2023-06-28 08:44] VITALS: BP 110/48; PULSE 96; O2SAT 97; BMI 29.9
--- NOTE | 2023-06-28 08:44 | MHC.PC.OV ---
Vital Signs 06/28/23 08:44 Height 5 ft 8 in Weight 196 lb 6 oz BMI 29.9 BP 110/48 L Blood Pressure Location Rt brachial Position Sitting Pulse 96 Pulse Source Pulse Oximeter Pulse Oximetry (%) 97 Oxygen Delivery Method Room Air Intake Visit Reasons: PE Allergies codeine [CODEINE] Allergy (Unknown, Verified 06/28/23 08:45) UNKNOWN Medication List - Last Reconciled 06/28/23 by Yg Levi MD atorvastatin 40 mg PO DAILY carvedilol 3.125 mg PO BID clopidogrel 75 mg PO DAILY cyanocobalamin (vitamin B-12) 1,000 mcg PO DAILY 90 days dapagliflozin propanediol (Farxiga) 10 mg PO DAILY dulaglutide (Trulicity) 1.5 mg subcut QWEEK flash glucose sensor (Nexus Dxyle Sean 14 Day Sensor kit) every 14 days [freestyle sean reader As directed] furosemide 10 mg (1/2 x 20 mg) PO DAILY insulin glargine-yfgn (Semglee (insulin glargine-yfgn) Pen) units subcut insulin lispro (Humalog KwikPen (U-100) Insulin) subcut metformin 1,000 mg PO BID rivaroxaban (Xarelto) 20 mg PO DAILY 90 days sacubitril-valsartan 24-26 mg (Entresto) 1 tab PO BID spironolactone 25 mg PO DAILY Tobacco use date assessed: 06/28/23 Fall risk assessment: 1 Fall in past year Last assessed Fall Risk: 06/28/23 Dental Screening Dental Screen Date: 06/28/23 Did you have a dental visit in the last 12 months?: No Did you have a dental problem in the last 6 months where you did not have access to dental care?: No Was dental information given to patient?: Patient has dentist HPI PE HPI Details Physical exam appointment Patient is established with [facility] endocrinology Diabetes management through them, hemoglobin A1c is 6.9 today Patient has seen Dr. Akhtar recently this month His ejection fraction has improved to 60% However he continued to have paroxysmal atrial fibrillation. In December I noticed that his hemoglobin was 10.4, he said that in hospital he had to units of packed RBCs I would recommend for him to repeat CBC, next time patient will have labs through Cardiology or endocrinology he will have that done through them. Colonoscopy was done in March through [facility] Gastroenterology Patient says that few polyps were removed And he was told that he will need colonoscopy every year I have no reports, we will try to reach them. I noticed that he is also drinking I would recommend not to drink too much. Patient filled tandem walk today B12 level was low normal I would recommend that he start taking [id number] B12 supplement No medications from PCP office Follow-up 1 year [facility] Medical History Heart failure with reduced ejection fraction Ischemic cardiomyopathy CAD (coronary artery disease) HTN (hypertension) Paroxysmal atrial fibrillation Diabetic nephropathy associated with type 2 diabetes mellitus Diabetes type 2, controlled Surgical History Stented coronary artery S/P CABG x 3 Family History Father CVD (cardiovascular disease) S/P triple vessel bypass Mother CVD (cardiovascular disease) Sudden cardiac Other Substance use disorder Social History Housing: Apartment Alcohol intake: current Alcohol intake frequency: 3 or more drinks per day Alcohol type: hard liquor Patient Tobacco Use Status: Former Tobacco user (30 years ago ) Tobacco use type: Cigarette Years Smoked: 20 years e-Cigarette/Vaping Use: Never Used service: No Current occupational status: retired Cognitive needs: No Hearing needs: No Vision needs: Yes Questionnaire PHQ-9 Over the last 2 weeks, how often have you been bothered by any of the following problems? 1. Little interest or pleasure in doing things: not at all 2. Feeling down, depressed, or hopeless: several days 3. Trouble falling or staying asleep, or sleeping too much: several days 4. Feeling tired or having little energy: several days 5. Poor appetite or overeating: not at all 6. Feeling bad about yourself - or that you are a failure or have let yourself or your family down: not at all 7. Trouble concentrating on things, such as reading the newspaper or watching television: not at all 8. Moving or speaking so slowly that other people could have noticed. Or the opposite - being so fidgety or restless that you have been moving around a lot more than usual: not at all 9. Thoughts that you would be better off or of hurting yourself in some way: not at all Total score: 3 Depression Screening Interpretation: Negative Depression Screening Done: Yes 45101 - PHQ-9 Billing: Yes Source: Developed by Drs. Asif Davis, Kaitlin Frias, Lucian Recinos and colleagues, with an educational yaritza from [employer]. Thrive Questionnaire Date Thrive assessed: 03/08/22 AUDIT C Alcohol Use Questionnaire (AUDIT-C) 1. How often do you have a drink containing alcohol?: 2-3 times a week 2. How many drinks containing alcohol do you have on a typical day when you are drinking?: 3 or 4 3. How often do you have six or more drinks on one occasion?: Never Total Score: 4 Score Reviewed/Action Taken: Yes YOANA-7 AMB Questionnaire YOANA-7 Date YOANA - 7 assessed: 03/08/22 Source: Developed by Drs. Asif Davis, Kaitlin Frias, Lucian Recinos and colleagues, with an educational yaritza from [employer]. Review of Systems Const Denies chills, Denies fever(s) and Denies headache(s) Eyes Denies blurry vision ENT Denies headache(s), Denies nasal discharge, Denies nasal obstruction, Denies odynophagia and Denies sinus pain Card Denies chest pain at rest and Denies chest pain with activity Resp Denies cough and Denies hemoptysis GI Denies diarrhea, Denies odynophagia, Denies vomiting and Denies hematemesis Reports as per HPI Musc Denies abnormal gait Skin/Breast Reports as per HPI Neuro Denies Neuro-related abnormal movements, Denies Abnormal speech present, Denies abnormal gait and Denies headache(s) Psych Denies mood swings and Denies paranoia Endo Reports as per HPI Lloyd/Lymph Reports as per HPI Aller/Immun Reports as per HPI Physical exam (Primary Care) Vital Signs: Last Vital Signs Pulse 96 06/28/23 08:44 BP 110/48 L 06/28/23 08:44 Pulse Ox 97 06/28/23 08:44 Oxygen Delivery Method Room Air 06/28/23 08:44 BMI result Body Mass Index 29.9 Tobacco/Smoking Status: Tobacco use Status Tobacco use date assessed 06/28/23 06/28/23 08:47 Patient Tobacco Use Status Former Tobacco user (30 06/28/23 08:47 years ago ) Tobacco use type Cigarette 06/28/23 08:47 e-Cigarette/Vaping Use Never Used 06/28/23 08:47 Depression Screening Interpretation: Negative Thrive Assessment: Date of Thrive Assessment Date Thrive assessed 03/08/22 06/28/23 08:47 Const General: cooperative, comfortable and no acute distress Orientation/consciousness: patient oriented x3 HENMT Head: Yes normocephalic and Yes atraumatic Eyes General: appearance normal, both eyes and all related structures Pupils: Equal, round and reactive pupils present EOM: EOMs intact bilaterally Neck Neck: Yes supple and No lymphadenopathy Thyroid: Thyroid normal Lymphatic: no lymphadenopathy noted Resp Effort & Inspection: normal respiratory effort and able to speak in complete sentences Auscultation: clear to auscultation bilaterally Cardio Heart sounds: S1 normal heart sound present and S2 normal heart sound present GI Palpation (GI): Soft to palpation and nontender Auscultation: normal bowel sounds General: Yes no CVA tenderness Back/Spine/Pelvis Back: no CVA tenderness Skin General skin exam: elasticity normal and turgor normal Neuro General: patient oriented x3 and gait normal Cranial nerves: Yes Equal, round and reactive pupils present Speech: No Abnormal speech present Coordination: Romberg test negative Extrem Other: Range of motion in shoulder is intact however painful right side which is a chronic problem for the patient General: Yes normal exam except as noted and No edema Results AMB Hemoglobin A1c AMB Hemoglobin A1c 6.9 % Last Edit by Lillian Lawton CMA on 06/28/23 09:20 Results Reviewed Results Reviewed: Laboratory Last Values Hgb A1c (Clinic) 6.9 % (4.0-6.0) H 06/28/23 09:17 Assessment and Plan Assessment & Plan (1) Encounter for general adult medical examination with abnormal findings: Code(s): Z00.01 - Encounter for general adult medical examination with abnormal findings (2) Diabetic neuropathy: Code(s): E11.40 - Type 2 diabetes mellitus with diabetic neuropathy, unspecified Qualifiers: Diabetes mellitus complication detail: diabetic autonomic neuropathy Diabetes mellitus type: type 2 Qualified Code(s): E11.43 - Type 2 diabetes mellitus with diabetic autonomic (poly)neuropathy (3) Diabetic nephropathy associated with type 2 diabetes mellitus: Code(s): E11.21 - Type 2 diabetes mellitus with diabetic nephropathy (4) Paroxysmal atrial fibrillation: Code(s): I48.0 - Paroxysmal atrial fibrillation (5) HTN (hypertension): Code(s): I10 - Essential (primary) hypertension Qualifiers: Hypertension type: primary hypertension Qualified Code(s): I10 - Essential (primary) hypertension (6) B12 deficiency: Code(s): E53.8 - Deficiency of other specified B group vitamins (7) Pain in right shoulder: Code(s): M25.511 - Pain in right shoulder Qualifiers: Chronicity: chronic Qualified Code(s): M25.511 - Pain in right shoulder; G89.29 - Other chronic pain (8) Peripheral vascular disease: Code(s): I73.9 - Peripheral vascular disease, unspecified Plan Physical exam appointment Patient is established with [facility] endocrinology Diabetes management through them, hemoglobin A1c is 6.9 today Patient has seen Dr. Akhtar recently this month His ejection fraction has improved to 60% However he continued to have paroxysmal atrial fibrillation. In December I noticed that his hemoglobin was 10.4, he said that in hospital he had to units of packed RBCs I would recommend for him to repeat CBC, next time patient will have labs through Cardiology or endocrinology he will have that done through them. Colonoscopy was done in March through [facility] Gastroenterology Patient says that few polyps were removed And he was told that he will need colonoscopy every year I have no reports, we will try to reach them. I noticed that he is also drinking I would recommend not to drink too much. Patient filled tandem walk today B12 level was low normal I would recommend that he start taking [id number] B12 supplement No medications from PCP office Continued to have claudication, ultrasound is ordered through Cardiology Follow-up 1 year Orders: Orders AMB Hemoglobin A1c Today E11.9 - Type 2 diabetes mellitus without complications Coding Level of Care Code Est Pt Prev Care >65y(60540) Diagnoses Encounter for general adult medical examination with abnormal findings Z00.01 Diabetic autonomic neuropathy associated with type 2 diabetes mellitus E11.43 Diabetes mellitus complication detail: diabetic autonomic neuropathy Diabetes mellitus type: type 2 Diabetic nephropathy associated with type 2 diabetes mellitus E11.21 Paroxysmal atrial fibrillation I48.0 Primary hypertension I10 Hypertension type: primary hypertension B12 deficiency E53.8 Chronic right shoulder pain M25.511; G89.29 Chronicity: chronic Peripheral vascular disease I73.9
== END 2023-06-28 12:21 | disposition home or self-care (01) ==
PROVIDERS: Visit Provider Internal Medicine
DX: Z00.00 Encounter for general adult medical examination without abnormal findings (principal); E11.43 Type 2 diabetes mellitus with diabetic autonomic (poly)neuropathy; E11.21 Type 2 diabetes mellitus with diabetic nephropathy; I48.0 Paroxysmal atrial fibrillation; I73.9 Peripheral vascular disease, unspecified; I10 Essential (primary) hypertension; E53.8 Deficiency of other specified B group vitamins; M25.511 Pain in right shoulder; G89.29 Other chronic pain
CPT/HCPCS: 83036; 99397

== ENCOUNTER 2023-07-18 10:07 | Outpatient (REF) | payer BC, MEDICARE, SELFPAY ==
--- NOTE | ~2023-07-18 | US_ITS ---
EXAMINATION: US NONINVASIVE ASSESSMENT OF THE BILATERAL LOWER EXTREMITY WITH ARTERIAL DUPLEX CLINICAL INFORMATION: Peripheral vascular disease, unspecified COMPARISON: None available. TECHNIQUE: Duplex Doppler techniques with waveform analysis and measurement of velocities in the common femoral, profunda femoris, superficial femoral, popliteal and tibial arteries were performed. The study was performed only at rest. FINDINGS: NONINVASIVE ASSESSMENT OF THE ARTERIES OF BILATERAL LOWER EXTREMITIES WITH ABIs: RIGHT LOWER EXTREMITY DUPLEX ULTRASOUND: Calcified plaque is visualized at the common femoral and proximal femoral level Common femoral artery: 232 cm/s. Diastolic flow reversal: Present Profunda femoris artery: 142 cm/s. Diastolic flow reversal: Intermittently present Superficial femoral artery (proximal): 126 cm/s. Diastolic flow reversal: Present Superficial femoral artery (mid): 83.9 cm/s. Diastolic flow reversal: Present Superficial femoral artery (distal): 66.6 cm/s. Diastolic flow reversal: Present Proximal popliteal artery: 63.8 cm/s Diastolic flow reversal: Present Distal popliteal artery: 63.8 cm/s Diastolic flow reversal: Present Posterior tibial artery: 102 cm/s Diastolic flow reversal: Present LEFT LOWER EXTREMITY DUPLEX ULTRASOUND: Calcified plaque is visualized in the common femoral and proximal femoral level Common femoral artery: 170 cm/s. Diastolic flow reversal: Present Profunda femoris artery: 65.9 cm/s. Diastolic flow reversal: Present Superficial femoral artery (proximal): 210 cm/s. Diastolic flow reversal: Present Superficial femoral artery (mid): 105 cm/s. Diastolic flow reversal: Present Superficial femoral artery (distal): 97.9 cm/s. Diastolic flow reversal: Present Proximal popliteal artery: 63.4 cm/s Diastolic flow reversal: Present Distal popliteal artery: 54.7 cm/s Diastolic flow reversal: Present Posterior tibial artery: 75.7 cm/s Diastolic flow reversal: Present US/US arterial duplex LE BI IMPRESSION: There is multiphasic flow throughout the bilateral lower extremities and there is proximal calcified plaque. There is probable at least mild disease proximally on the left.
== END 2023-07-18 10:08 | disposition home or self-care (01) ==
LOC: HO.US 10:07
PROVIDERS: PCP Internal Medicine; Visit Provider Internal Medicine Cardiovascular Disease
DX: I73.9 Peripheral vascular disease, unspecified (principal)
CPT/HCPCS: 93925

== ENCOUNTER 2023-08-03 09:46 | Outpatient (REF) | payer BC, MEDICARE, SELFPAY | END 2023-08-03 09:47 | disposition home or self-care (01) | LOC: HO.HMGCLDS 09:46 | PROVIDERS: PCP Internal Medicine; Visit Provider Internal Medicine Cardiovascular Disease | DX: I50.9 Heart failure, unspecified (principal); I48.0 Paroxysmal atrial fibrillation; R06.09 Other forms of dyspnea; Z95.5 Presence of coronary angioplasty implant and graft | CPT/HCPCS: 36415; 80048; 83880; 85027; 85610 ==

== ENCOUNTER 2023-08-03 15:57 | Inpatient (IN) | payer BC, MEDICARE, SELFPAY ==
[2023-08-03] VITALS (10 sets, daily range): BP systolic 103–132; BP diastolic 43–67; PULSE 74–102; RESP 12–22; TEMP 36.7–37.4; O2SAT 98–100; BMI 28.9
--- NOTE | 2023-08-03 16:08 | ED.GENADULT ---
HPI - General Adult General Chief complaint: Recheck/Abnormal Lab/Rx Stated complaint: cardiology sent him here Time Seen by Provider: 08/03/23 16:22 Source: patient and family (Spouse) Mode of arrival: ambulatory Limitations: no limitations History of Present Illness HPI narrative: is 68-year-old male sent by Dr. Akhtar (computerized table cutter ) for low H and H evaluation. Mr. Young is a cardiac patient of Dr. Akhtar who sent a routine workup found to be very anemic and was asked to come to the emergency department, patient had triple bypass surgery with revision and the paroxysmal atrial fibrillation on Xarelto. Patient notice black stool for the past 4 weeks, also complaining of exertional dyspnea and fatigue with generalized weakness, patient also cannot ambulate for any distance complaining bilateral thighs pain, No abdominal pain, no nausea, no vomiting. patient appears pale during the interview. Patient required blood transfusion in the past. Related Data Home Medications Medication Instructions Recorded Confirmed insulin glargine-yfgn 100 unit/mL 35 unit subcut BEDTIME 10/13/22 08/03/23 (3 mL) subcutaneous pen (Semglee (insulin glargine-yfgn) Pen) insulin lispro 100 unit/mL 15 unit subcut BID 10/13/22 08/03/23 subcutaneous pen (Humalog KwikPen (U-100) Insulin) dulaglutide 3 mg/0.5 mL 3 mg subcut MO 08/03/23 08/03/23 subcutaneous pen injector (Trulicity) trazodone 50 mg tablet 50 mg PO BEDTIME 08/03/23 08/03/23 Previous Rx's Medication Instructions Recorded metformin 1,000 mg tablet 1,000 mg PO BID #180 tabs 01/04/21 flash glucose sensor (FreeStyle #7 ea 02/08/22 Sean 14 Day Sensor kit) freestyle sean reader #1 ea 02/08/22 cyanocobalamin (vitamin B-12) 1,000 mcg PO DAILY 90 days #90 tabs 11/25/22 1,000 mcg tablet carvedilol 3.125 mg tablet 3.125 mg PO BID #180 tabs 05/02/23 clopidogrel 75 mg tablet 75 mg PO DAILY #90 tabs 05/02/23 dapagliflozin propanediol 10 mg 10 mg PO DAILY #90 tabs 05/02/23 tablet (Farxiga) rivaroxaban 20 mg tablet (Xarelto) 20 mg PO DAILY 90 days #90 tabs 05/02/23 sacubitril 24 mg-valsartan 26 mg 1 tab PO BID #180 tabs 05/02/23 tablet (Entresto) spironolactone 25 mg tablet 25 mg PO DAILY #90 tabs 05/02/23 atorvastatin 40 mg tablet 40 mg PO DAILY #90 tabs 05/05/23 furosemide 20 mg tablet 20 mg PO DAILY #90 tabs 06/28/23 Allergies Allergy/AdvReac Type Severity Reaction Status Date / Time codeine [CODEINE] Allergy Unknown UNKNOWN Verified 08/03/23 16:09 Review of Systems Review of Systems: all other systems are reviewed and are negative Constitutional: Reports as per HPI and Reports no additional constitutional complaints Eyes: Reports as per HPI and Reports no additional eye complaints Reports system reviewed and no additional complaints, except as documented Cardiovascular: Reports as per HPI and Reports no additional cardiovascular complaints Respiratory: Reports as per HPI and Reports no additional respiratory complaints Gastrointestinal: Reports as per HPI and Reports no additional gastrointestinal complaints Genitourinary: Reports no additional female genitourinary complaints Musculoskeletal: Reports no additional musculoskeletal complaints Skin/Breast: Reports system reviewed and no additional complaints, except as docu Psychiatric: Reports no additional psychiatric complaints Endocrine: Reports no additional endocrine complaints Hematologic/Lymphatic: Reports no additional hematologic/lymphatic complaints Allergic/Immunologic: Reports no additional allergic/immunologic complaints Reports system reviewed and no additional complaints, except as documented and Reports Abnormal speech present PMFSH Past Medical History Onset Date is defined in the Problem List Problems that require an onset date and time if occurred within 24 hrs of arrival to the ED Aortic Dissection and Rupture; Neurologic impairment; Cardiopulmonary Arrest; Endotracheal Intubation; Insertion or Replacement of Mechanical Circulatory Assist Device Medical History Heart failure with reduced ejection fraction Ischemic cardiomyopathy CAD (coronary artery disease) HTN (hypertension) Paroxysmal atrial fibrillation Diabetic nephropathy associated with type 2 diabetes mellitus Diabetes type 2, controlled Surgical History Stented coronary artery S/P CABG x 3 Family History Family History Father CVD (cardiovascular disease) S/P triple vessel bypass Mother CVD (cardiovascular disease) Sudden cardiac Other Substance use disorder Social History Social History Housing: Apartment Alcohol intake: current Alcohol intake frequency: 3 or more drinks per day Alcohol type: hard liquor Patient Tobacco Use Status: Former Tobacco user Tobacco use type: Cigarette Years Smoked: 20 years Smoked in Last 30 Days: No e-Cigarette/Vaping Use: Never Used Use of substances other than those prescribed or required for medical reasons: No Advance Directives: No Advance Directives Information Provided: No Nutrition Risks: No Nutritional Risk service: No Current occupational status: retired Cognitive needs: No Hearing needs: No Vision needs: Yes Physical Exam ED Vital Signs: Vital Signs - 24 hr 08/03/23 16:04 08/03/23 17:36 Temperature 98.3 F 98.2 F Pulse Rate 86 77 Respiratory Rate 16 18 Blood Pressure 113/44 L 103/55 L Pulse Oximetry 100 100 Oxygen Delivery Method Room Air Room Air BMI result Body Mass Index 28.9 Vital signs have been reviewed and appear to be correct. Blood pressure elevated. Heart rate normal. Respiratory rate normal. Temperature normal. Oxygen saturation normal. Appearance: Pale,Alert. Oriented X3. No acute distress. Head: Normal external exam. Normocephalic. Atraumatic. No Carmen signs noted. No raccoon eyes noted Eyes: PERRLA. EOMI. Conjunctiva and sclera normal. Eyelids normal. ENT: TM's Normal. Pharynx normal. Uvula midline. Moist mucous membranes. No trismus noted. No drooling noted. No muffled voice noted. Neck: Normal inspection. Neck supple. FROM. No adenopathy. Thyroid Normal. No meningeal signs. No neck mass noted. CVS: Normal heart rate and rhythm. Heart sound normal. No murmurs noted. Pulses normal throughout. Respiratory: No respiratory distress. Painless inspiration. Breath sounds normal. No wheezes/rales/rhonchi noted. Chest nontender. No accessory muscle usage noted or decreased air movement noted. Abdomen: Soft and nontender. Bowel sounds normal in all 4 quadrants. No distention noted. No organomegaly noted. No visible injury noted. Rectal exam: Black stool guaiac positive. Back: No CVA tenderness. Full range of motion noted. Skin: Skin warm and dry. Normal skin color. Normal skin turgor. No rashes/lesions/lacerations noted. Extremities: No lower extremity edema. Extremities exhibit normal range of motion. Extremities nontender. Neuro: Oriented X 3. Cranial nerve exam: II-XII are grossly intact No motor deficit. No sensory deficit. Reflexes normal. Course Course Course Narrative: RME: 68-year-old male sent by primary care provider for hemoglobin of 6 over 21. Patient is pale on triage patient admits to black stools. Labs ordered. Patient will be brought to the ED for immediate intervention. Type and screen ordered. Charge NUrse Alcides made aware and patient going to room 3 Reevaluation(s) Reevaluation #1: rectal bleed on Xarelto with low hemoglobin causing symptomatic anemia. Will transfuse 1 unit of PRBCs. GI bleed will give 1 dose of Protonix in the ED. Time: 17:43 Medications Administered Generic Name Dose Route Start Last Admin Trade Name Robyq PRN Reason Stop Dose Admin Atorvastatin Calcium 40 mg 08/04/23 09:00 08/04/23 08:08 Atorvastatin Calcium 40 Mg Tablet PO 40 mg DAILY MAISHA Administration Carvedilol 3.125 mg 08/03/23 21:00 08/04/23 08:08 Carvedilol 3.125 Mg Tablet PO 3.125 mg BID MAISHA Administration Protocol Cyanocobalamin 1,000 mcg 08/04/23 09:00 08/04/23 08:08 Cyanocobalamin (Vitamin B-12) 1,000 Mcg Tablet PO 1,000 mcg DAILY MAISHA Administration Insulin Glargine 18 unit 08/03/23 21:00 08/03/23 21:56 Insulin Glargine,Hum.Rec.Anlog 100 Unit/Ml 10 Ml Vial SUBCUT 18 unit BEDTIME MAISHA Administration Insulin Human Lispro 0 unit 08/03/23 21:00 08/04/23 08:09 Insulin Lispro 100 Unit/Ml 3 Ml Vial SUBCUT 2 unit QIDACHS MAISHA Administration Protocol Pantoprazole Sodium 40 mg 08/03/23 17:35 08/04/23 08:09 Pantoprazole Sodium 40 Mg/10 Ml Vial IVPUSH 40 mg BID@0630,1630 MAISHA Administration Sacubitril/Valsartan 1 tab 08/03/23 21:00 08/04/23 08:13 Sacubitril/Valsartan 1 Tab Tablet PO 1 tab BID MAISHA Administration Protocol Sodium Chloride 3 ml 08/04/23 00:00 08/04/23 08:14 0.9 % Sodium Chloride Flush 3 Ml Syringe IVFLUSH 3 ml QSHIFT MAISHA Administration Spironolactone 25 mg 08/04/23 09:00 08/04/23 08:08 Spironolactone 25 Mg Tablet PO 25 mg DAILY MAISHA Administration Protocol Trazodone HCl 50 mg 08/03/23 21:00 08/03/23 21:55 Trazodone Hcl 50 Mg Tablet PO 50 mg BEDTIME MAISHA Administration Discontinued Medications Generic Name Dose Route Start Last Admin Trade Name Freq PRN Reason Stop Dose Admin Furosemide 20 mg 08/03/23 18:00 08/03/23 22:08 Furosemide 20 Mg/2 Ml Vial IVPUSH 08/03/23 22:01 20 mg Q4H MAISHA Administration Protocol Sodium Chloride 100 mls @ 100 mls/hr 08/03/23 16:40 08/03/23 19:56 Ns IV 08/03/23 17:39 Infused ONCE ONE Infusion Sodium Chloride 100 mls @ 100 mls/hr 08/03/23 17:33 08/04/23 00:26 Ns IV 08/03/23 18:32 Infused ONCE ONE Infusion Pantoprazole Sodium 40 mg 08/03/23 17:43 08/03/23 18:39 Pantoprazole Sodium 40 Mg/10 Ml Vial IVPUSH 08/03/23 17:44 Not Given ONCE ONE Medical Decision Making Differential Diagnosis Differential Diagnoses: The differential diagnosis associated with the presentation includes ( GI bleed, severe anemia requiring transfusion, electrolyte abnormality, coagulopathy, CHF, ACS.) Admission/Observation Consideration of admission/observation: Escalation of care including admission/observation considered Consult Healthcare Provider Management of the patient was discussed with: Hospitalist (Dr. Da Silva) Lab Data MDM Lab Attestation statement: I reviewed the patient's lab results. 08/04/23 06:29 08/04/23 06:29 Labs: Lab Results 08/03/23 08/03/23 Range/Units 16:38 16:41 WBC 7.4 (4.8-10.8) X10*3/uL RBC 2.97 L (4.60-5.80) X10*6/uL Hgb 6.4 L* (14.0-18.0) g/dl Hct 23.0 L (42.0-52.0) % MCV 77.4 L (80.0-98.0) fL MCH 21.5 L (27.0-33.0) pg MCHC 27.8 L (31.0-36.0) g/dl RDW 16.1 H (11.0-16.0) % Plt Count 305 (160-400) X10*3/uL MPV 9.8 (9.4-12.4) fL Immature Gran % (Auto) 0.4 (0.0-0.4) % Neut % (Auto) 69.2 (45-73) % Lymph % (Auto) 15.6 L (20-40) % [place] % (Auto) 10.3 (2-11) % Eos % (Auto) 3.5 (0-4) % Baso % (Auto) 1.0 (0-2) % Lymph # (Auto) 1.2 (1.2-4.9) X10*3/uL [place] # (Auto) 0.8 (0.1-1.2) X10*3/uL Eos # (Auto) 0.3 (0.0-0.4) X10*3/uL Baso # (Auto) 0.1 (0.0-0.2) X10*3/uL Abs Immat Gran (auto) 0.03 (0.00-0.03) X10*3/uL Absolute Neuts (auto) 5.1 (2.0-8.3) x10*3/uL Absolute Nucleated RBC 0.000 (0.0-0.012) X10*3/uL Nucleated RBC % (auto) 0.0 (0.0-0.2) /100WBC PT 15.6 H D (11.1-13.3) SEC INR 1.3 H (0.9-1.1) APTT 37.4 H (26.0-36.4) SEC Sodium 139 (135-145) mmol/L Potassium 4.4 (3.3-5.1) mmol/L Chloride 102 (96-108) mmol/L Carbon Dioxide 26 (22-29) mmol/L Anion Gap 15 (12-20) BUN 27 H (9-16) mg/dL Creatinine 1.40 (0.5-1.4) mg/dL Estim Creat Clear Calc 54.6 Estimated GFR 51 Random Glucose 222 H (60-115) mg/dL Calcium 9.4 D (8.4-10.2) mg/dL Total Bilirubin 0.5 (0.0-1.0) mg/dL AST 24 (5-37) U/L ALT 15 (0-40) U/L Alkaline Phosphatase 70 (39-117) U/L Total Protein 7.5 (6.5-8.0) g/dL Albumin 4.3 (3.5-5.0) g/dL Stool Occult Blood POSITIVE (NEGATIVE) Blood Type O Positive Antibody Screen NEGATIVE Crossmatch See Detail Independent Interpretation I performed an independent interpretation of an: EKG ( normal sinus rhythm at 74 beats per minutes, normal intervals, no ST-T changes, no EKG changes From prior EKG.) and Plain X-Ray ( Chest: No acute intrathoracic pathology.) Radiology Impression Discussion of test interpretation with radiology: I have reviewed the radiologist's reading. Critical Care Time Critical Care Time Critical Care Time: Yes Total Critical Care Time: 45 Attestation: I spent 45 minutes providing critical care service to the patient, this including time spent at the bedside to evaluate the patient, reassess the patient, monitoring vital signs, review labs, and radiographic studies, counseling the patient/family, discussing the case with consultants, disposition the patient. Discharge Plan Discharge Clinical Impression: GI bleed, Anemia Patient Disposition: Admitted As Inpatient
--- NOTE | 2023-08-03 18:02 | PHA.MEDREC ---
Pharmacy Consult ? Medication Reconciliation Pharmacy has completed the medication reconciliation. Patient had list of medications that matched claim history. Luis Daniel QuachD
--- NOTE | 2023-08-03 18:06 | PM.IMHP ---
History of Present Illness Date of Service: 08/03/23 Chief Complaint: anemia 68yo M with CAD s/p 3V CABG with subsequent failure of SVG to LAD causing HFrEF, which recovered after MIN from LCA to LAD. He also has paroxysmal AF and underwent SHON occlusion during the CABG. He is on clopdiogrel and rivaroxaban. Other medical history notable for DM2 with neuropathy, B12 defiency, and excess alcohol intake without history of withdrawal. He was sent in by his marketing researcher, Fabrice Akhtar, when he was found to have Hb 6 with MCV 79 on routine laboratory studies. Recheck in the ED here confirmed Hb of 6.4. Prior Hb on 01/07/23 was 10.4 Also some degree of ANNETTE with Cr 1.4, compared to baseline of 0.88 on 06/27/23. FOBT is positive. Two units of packed red blood cells have been ordered. He does endorse several months of worsening exertional dyspnea, lightheadedness, and black stools. He had a colonoscopy at [facility] on 04/11/23 demonstrating 6 sessile polyps and internal hemorrhoids. He denies chest pain. Review of Systems Review of Systems: Yes all other systems are reviewed and are negative [facility] Medical History Heart failure with reduced ejection fraction Ischemic cardiomyopathy CAD (coronary artery disease) HTN (hypertension) Paroxysmal atrial fibrillation Diabetic nephropathy associated with type 2 diabetes mellitus Diabetes type 2, controlled Family History Father CVD (cardiovascular disease) S/P triple vessel bypass Mother CVD (cardiovascular disease) Sudden cardiac Other Substance use disorder Surgical History Stented coronary artery S/P CABG x 3 Social History Housing: Apartment Alcohol intake: current Alcohol intake frequency: 3 or more drinks per day Alcohol type: hard liquor Patient Tobacco Use Status: Former Tobacco user Tobacco use type: Cigarette Years Smoked: 20 years e-Cigarette/Vaping Use: Never Used service: No Current occupational status: retired Cognitive needs: No Hearing needs: No Vision needs: Yes Meds Allergies Allergy/AdvReac Type Severity Reaction Status Date / Time codeine [CODEINE] Allergy Unknown UNKNOWN Verified 08/03/23 16:09 Active Medications: Current Medications Acetaminophen (Acetaminophen 325 Mg Tablet) 650 mg PO Q6H PRN PRN Reason: Pain, Mild (Pain Scale 1-3) Atorvastatin Calcium (Atorvastatin Calcium 40 Mg Tablet) 40 mg PO DAILY [facility] Carvedilol (Carvedilol 3.125 Mg Tablet) 3.125 mg PO BID [facility]; Protocol Cyanocobalamin (Cyanocobalamin (Vitamin B-12) 1,000 Mcg Tablet) 1,000 mcg PO DAILY [facility] Dextrose (Dextrose 50 % 25 Gm/50 Ml Syringe) 25 gm IVPUSH Q15M PRN; Protocol PRN Reason: per Hypoglycemia Standing Ord. Furosemide (Furosemide 20 Mg/2 Ml Vial) 20 mg IVPUSH Q4H MAISHA; Protocol Stop: 08/03/23 22:01 Glucose (Glucose Gel 15 Gm Gel..Gram.) 15 gm PO Q15M PRN; Protocol PRN Reason: per Hypoglycemia Standing Ord. Sodium Chloride (Ns) 100 mls @ 100 mls/hr IV ONCE ONE Stop: 08/03/23 18:32 Insulin Human Lispro (Insulin Lispro 100 Unit/Ml 3 Ml Vial) 0 unit SUBCUT QIDACHS [facility]; Protocol Ondansetron HCl (Ondansetron Hcl 4 Mg/2 Ml Vial) 4 mg IVPUSH Q8H PRN PRN Reason: Nausea and Vomiting Pantoprazole Sodium (Pantoprazole Sodium 40 Mg/10 Ml Vial) 40 mg IVPUSH BID@0630,1630 [facility] Sacubitril/Valsartan (Sacubitril/Valsartan 1 Tab Tablet) 1 tab PO BID [facility]; Protocol Sodium Chloride (0.9 % Sodium Chloride Flush 3 Ml Syringe) 3 ml IVFLUSH QSHIFT [facility] Trazodone HCl (Trazodone Hcl 50 Mg Tablet) 50 mg PO BEDTIME [facility] Home Medications Medication Instructions Recorded Confirmed Last Taken Type insulin glargine-yfgn 100 unit/mL 35 unit subcut BEDTIME 10/13/22 08/03/23 08/02/22 History (3 mL) subcutaneous pen (Semglee (insulin glargine-yfgn) Pen) insulin lispro 100 unit/mL 15 unit subcut BID 10/13/22 08/03/23 08/03/22 History subcutaneous pen (Humalog KwikPen (U-100) Insulin) dulaglutide 3 mg/0.5 mL 3 mg subcut MO 08/03/23 08/03/23 07/31/23 History subcutaneous pen injector (Trulicity) trazodone 50 mg tablet 50 mg PO BEDTIME 08/03/23 08/03/23 08/02/22 History Physical Exam Vital Signs and Narrative: Vital Signs: Last Vital Signs Temp 98.2 F 08/03/23 17:36 Pulse 77 08/03/23 17:36 Resp 18 08/03/23 17:36 BP 103/55 L 08/03/23 17:36 Pulse Ox 100 08/03/23 17:36 O2 Del Method Room Air 08/03/23 17:36 BMI result Body Mass Index 28.9 Gen: in no acute distress HEENT: sclera anicteric, moist but very pale mucosa Neck: supple Lungs: clear to auscultation bilaterally Heart: regular rate and rhythm, no murmurs Abd: soft, non-tender, non-distended Ext: no edema Skin: warm/well-perfused Neuro: alert and oriented x3, no focal findings Psych: appropriate affect Results Labs 08/03/23 16:38 08/03/23 16:38 Labs: Laboratory Results - last 24 hr 08/03/23 08/03/23 16:38 16:41 MCV 77.4 L MCH 21.5 L MCHC 27.8 L RDW 16.1 H Plt Count 305 MPV 9.8 Immature Gran % (Auto) 0.4 Neut % (Auto) 69.2 Lymph % (Auto) 15.6 L [place] % (Auto) 10.3 Eos % (Auto) 3.5 Baso % (Auto) 1.0 Lymph # (Auto) 1.2 [place] # (Auto) 0.8 Eos # (Auto) 0.3 Baso # (Auto) 0.1 Abs Immat Gran (auto) 0.03 Absolute Neuts (auto) 5.1 Absolute Nucleated RBC 0.000 Nucleated RBC % (auto) 0.0 PT 15.6 H D INR 1.3 H APTT 37.4 H Anion Gap 15 Estim Creat Clear Calc 54.6 Estimated GFR 51 Random Glucose 222 H Calcium 9.4 D Total Bilirubin 0.5 AST 24 ALT 15 Alkaline Phosphatase 70 Total Protein 7.5 Albumin 4.3 Stool Occult Blood POSITIVE Blood Type O Positive Antibody Screen NEGATIVE Crossmatch See Detail Assessment and Plan (1) Anemia: Status: Acute (2) GI bleed: Status: Acute Plan 68yo M with CAD s/p 3V CABG with SVG failure and subsequent HFrEF that recovered after MIN from LCA to LAD; paroxysmal AF s/p SHON occlusion; DM2; B12 deficiency; and excess EtOH intake without history of withdrawal. He takes clopidogrel and rivaroxaban. He was sent in by his marketing researcher due to severe microcytic anemia on lab work and endorses dyspnea and melena. FOBT is positive. He also has ANNETTE. acute GI blood loss anemia - Admit to telemetry. Give 2u pRBCs with furosemide IV after each unit. Consult Gastroenterology and keep NPO after midnight as will need to determine the source of bleeding, likely upper GI in origin, in order to safely put him back anticoagulation and antiplatelet therapy, the latter of which is quite urgent given the recent stenting. Will give empiric PPI. ANNETTE - Likely prerenal ANNETTE due to the severe anemia and should recover with transfusion. Recheck BMP in AM. Ischemic CM HF with recovered EF - Continue carvedilol, Entresto, spironolactone. CAD - Hold clopidogrel. Continue atorvastatin, carvedilol, Entresto. paroxysmal AF - Hold rivaroxaban. Continue carvedilol. DM2 - Basal-bolus insulin, hold oral hypoglycemics. B12 deficiency - Continue replacement. Excess EtOH intake - [facility]. VTE prophylaxis - SCDs dispo - eventual home code status - full I anticipate that the patient will stay at least 2 midnights as an inpatient in the hospital due to the above reasons. It is neither reasonable nor safe to care for them in a less acute setting. Quality Stroke Does the patient have a stroke diagnosis?: No VTE Prior VTE?: No VTE Risk Level:: Medical - moderate - high VTE Device Contraindication: N/A - Device Ordered VTE Drug Contraindication: Treatment Not Tolerated
--- NOTE | 2023-08-03 18:17 | PC.NURSE ---
pt has bilateral 20G ivs in the AC. pt is resting on stretcher, respirations even and unlabored, skin pwd, alert and oriented x4. offering no complaints at this time, preppared for blood transfusion. Pt has no questions regarding transfusion
--- NOTE | 2023-08-03 18:40 | PC.NURSE ---
blood transfusion started, pt tolerating well at this time
--- NOTE | 2023-08-04 02:40 | PC.NURSE ---
Pt completed first blood transfusion without issue, states he was feeling well. Second transfusion started also no issue at this time
[2023-08-04 03:03] VITALS: BP 110/54; PULSE 76; RESP 16; TEMP 36.7
--- NOTE | 2023-08-04 06:47 | MHC.EDTECH ---
patient up to bathroom independently, belongings list completed.
[2023-08-04 06:48] VITALS: BP 112/74; PULSE 74; RESP 16; TEMP 36.4; O2SAT 98
--- NOTE | 2023-08-04 08:18 | PC.NURSE ---
Alert and oriented, reports feeling better. clear liquid diet for breakfast, vss
--- NOTE | 2023-08-04 10:00 | HO.PM.IMPN ---
Subjective Subjective Date of Service: 08/04/23 Interval History: tolerated transfusion, no dyspnea EGD scheduled for tomorrow to allow Xarelto washout Review of Systems Review of Systems: Yes all other systems are reviewed and are negative Physical Exam Vital Signs: Vital Signs: Last Vital Signs Temp 97.6 F 08/04/23 06:48 Pulse 74 08/04/23 06:48 Resp 16 08/04/23 06:48 BP 112/74 08/04/23 06:48 Pulse Ox 98 08/04/23 06:48 O2 Del Method Room Air 08/04/23 06:48 O2 Flow Rate 2 08/03/23 18:15 BMI result Body Mass Index 28.9 Gen: in no acute distress HEENT: sclera anicteric, moist/pale mucus membranes Neck: supple Lungs: clear to auscultation bilaterally Heart: regular rate and rhythm, no murmurs Abd: soft, non-tender, non-distended Ext: no edema Skin: warm/well-perfused Neuro: alert and oriented x3, no focal findings Psych: appropriate affect Objective Data Active Medications Acetaminophen (Acetaminophen 325 Mg Tablet) 650 mg PO Q6H PRN PRN Reason: Pain, Mild (Pain Scale 1-3) Atorvastatin Calcium (Atorvastatin Calcium 40 Mg Tablet) 40 mg PO DAILY [facility] Last Admin: 08/04/23 08:08 Dose: 40 mg Documented By: JAMES Carvedilol (Carvedilol 3.125 Mg Tablet) 3.125 mg PO BID [facility]; Protocol Last Admin: 08/04/23 08:08 Dose: 3.125 mg Documented By: JAMES Cyanocobalamin (Cyanocobalamin (Vitamin B-12) 1,000 Mcg Tablet) 1,000 mcg PO DAILY [facility] Last Admin: 08/04/23 08:08 Dose: 1,000 mcg Documented By: JAMES Dextrose (Dextrose 50 % 25 Gm/50 Ml Syringe) 25 gm IVPUSH Q15M PRN; Protocol PRN Reason: per Hypoglycemia Standing Ord. Glucose (Glucose Gel 15 Gm Gel..Gram.) 15 gm PO Q15M PRN; Protocol PRN Reason: per Hypoglycemia Standing Ord. Insulin Glargine (Insulin Glargine,Hum.Rec.Anlog 100 Unit/Ml 10 Ml Vial) 18 unit SUBCUT BEDTIME [facility] Last Admin: 08/03/23 21:56 Dose: 18 unit Documented By: GERBER Insulin Human Lispro (Insulin Lispro 100 Unit/Ml 3 Ml Vial) 0 unit SUBCUT QIDACHS [facility]; Protocol Last Admin: 08/04/23 08:09 Dose: 2 unit Documented By: JAMES Ondansetron HCl (Ondansetron Hcl 4 Mg/2 Ml Vial) 4 mg IVPUSH Q8H PRN PRN Reason: Nausea and Vomiting Pantoprazole Sodium (Pantoprazole Sodium 40 Mg/10 Ml Vial) 40 mg IVPUSH BID@0630,1630 [facility] Last Admin: 08/04/23 08:09 Dose: 40 mg Documented By: JAMES Sacubitril/Valsartan (Sacubitril/Valsartan 1 Tab Tablet) 1 tab PO BID [facility]; Protocol Last Admin: 08/04/23 08:13 Dose: 1 tab Documented By: JAMES Sodium Chloride (0.9 % Sodium Chloride Flush 3 Ml Syringe) 3 ml IVFLUSH QSHIFT [facility] Last Admin: 08/04/23 08:14 Dose: 3 ml Documented By: JAMES Spironolactone (Spironolactone 25 Mg Tablet) 25 mg PO DAILY [facility]; Protocol Last Admin: 08/04/23 08:08 Dose: 25 mg Documented By: JAMES Trazodone HCl (Trazodone Hcl 50 Mg Tablet) 50 mg PO BEDTIME [facility] Last Admin: 08/03/23 21:55 Dose: 50 mg Documented By: GERBER Labs 08/04/23 06:29 08/04/23 06:29 Labs: Laboratory Results - last 24 hr 08/03/23 08/03/23 08/03/23 16:38 16:41 20:11 MCV 77.4 L MCH 21.5 L MCHC 27.8 L RDW 16.1 H Plt Count 305 MPV 9.8 Immature Gran % (Auto) 0.4 Neut % (Auto) 69.2 Lymph % (Auto) 15.6 L Polk % (Auto) 10.3 Eos % (Auto) 3.5 Baso % (Auto) 1.0 Lymph # (Auto) 1.2 Polk # (Auto) 0.8 Eos # (Auto) 0.3 Baso # (Auto) 0.1 Abs Immat Gran (auto) 0.03 Absolute Neuts (auto) 5.1 Absolute Nucleated RBC 0.000 Nucleated RBC % (auto) 0.0 PT 15.6 H D INR 1.3 H APTT 37.4 H Anion Gap 15 Estim Creat Clear Calc 54.6 Estimated GFR 51 POC Glucose 121 H Random Glucose 222 H Calcium 9.4 D Total Bilirubin 0.5 AST 24 ALT 15 Alkaline Phosphatase 70 Total Protein 7.5 Albumin 4.3 Stool Occult Blood POSITIVE Blood Type O Positive Antibody Screen NEGATIVE Crossmatch See Detail 08/04/23 08/04/23 06:29 07:07 MCV 79.1 L MCH 23.2 L MCHC 29.3 L RDW 16.1 H Plt Count 251 MPV 10.0 Immature Gran % (Auto) Neut % (Auto) Lymph % (Auto) Polk % (Auto) Eos % (Auto) Baso % (Auto) Lymph # (Auto) Polk # (Auto) Eos # (Auto) Baso # (Auto) Abs Immat Gran (auto) Absolute Neuts (auto) Absolute Nucleated RBC 0.000 Nucleated RBC % (auto) 0.0 PT INR APTT Anion Gap 14 Estim Creat Clear Calc 68.9 Estimated GFR > 60 POC Glucose 150 H Random Glucose 132 H Calcium 8.9 Total Bilirubin AST ALT Alkaline Phosphatase Total Protein Albumin Stool Occult Blood Blood Type Antibody Screen Crossmatch Assessment and Plan (1) Anemia: Status: Acute Plan d2 68yo M with CAD s/p 3V CABG with SVG failure and subsequent HFrEF that recovered after MIN from LCA to LAD; paroxysmal AF s/p SHON occlusion; DM2; B12 deficiency; and excess EtOH intake without history of withdrawal. He takes clopidogrel and rivaroxaban. He was sent in by his scarfer due to severe microcytic anemia on lab work and endorses dyspnea and melena. FOBT positive. acute GI blood loss anemia - transfused 2u pRBCs with furosemide IV after each unit 08/03/23, H+H improved appropriately. GI consulted, plan EGD tomorrow to determine safety of putting back on anticoagulation + antiplatelet therapy. continue IV PPI prerenal ANNETTE - resolved after transfusion Ischemic CM HF with recovered EF - continue carvedilol, Entresto, spironolactone CAD - hold clopidogrel; continue atorvastatin, carvedilol, Entresto paroxysmal AF - hold rivaroxaban; continue carvedilol DM2 - basal-bolus insulin, hold oral hypoglycemics B12 deficiency - continue replacement Excess EtOH intake - montior CIWA; no current withdrawals and no history of these VTE prophylaxis - SCDs dispo - eventual home In my clinical judgment, the patient requires continued inpatient hospitalization for the following reasons: EGD Total time managing care of this patient today: 40 minutes. Quality Stroke Does the patient have a stroke diagnosis?: No VTE Prior VTE?: No VTE Risk Level:: Medical - moderate - high VTE Device Contraindication: N/A - Device Ordered VTE Drug Contraindication: Treatment Not Tolerated
--- NOTE | 2023-08-04 11:03 | PM.GICN ---
History of Present Illness Data of Consult Service Date: 08/04/23 Requesting physician: Manas Mayorga Primary Care Provider: Yg Levi MD HPI Reason for consult: Gi Bleeding 68 YM with DM2 with neuropathy, B12 defiency, and excess alcohol intake, CAD s/p 3V CABG with subsequent failure of SVG to LAD causing HFrEF, which recovered after MIN from LCA to LAD. Pt has paroxysmal AF and underwent SHON occlusion during the CABG and is on clopdiogrel and rivaroxaban. He was sent in by his development spec, Fabrice Akhtar, when he was found to have Hb 6 with MCV 79 on routine laboratory studies and advised to go to [facility] ED for blood transfusion. Recheck in the ED confirmed Hb of 6.4. Prior Hb on 01/07/23 was 10.4 Also some degree of ANNETTE with Cr 1.4, compared to baseline of 0.88 on 06/27/23. FOBT was positive. 2 Units PRBC were transfused overnight and FU H&H was 8.2 & 28. Pt denies symptoms of heartburn, dysphagia or chest pain. He does endorse several months of worsening exertional dyspnea, lightheadedness, and intermittent black stools. Pt reports having an EGD and [place] [facility] [place],. Colonoscopy showed large polyps which could not be removed since pt was on anticoagulation. Repeat colonoscopy was performed 04/11/23 which showed internal hemorrhoids and 6 sessile polyps were removed. Review of Systems Review of Systems: Yes all other systems are reviewed and are negative [facility] Past Medical History Medical History Heart failure with reduced ejection fraction Ischemic cardiomyopathy CAD (coronary artery disease) HTN (hypertension) Paroxysmal atrial fibrillation Diabetic nephropathy associated with type 2 diabetes mellitus Diabetes type 2, controlled Family History Family History Father CVD (cardiovascular disease) S/P triple vessel bypass Mother CVD (cardiovascular disease) Sudden cardiac Other Substance use disorder Surgical History Surgical History Stented coronary artery S/P CABG x 3 Social History Social History Housing: Apartment Alcohol intake: current Alcohol intake frequency: 3 or more drinks per day Alcohol type: hard liquor Patient Tobacco Use Status: Former Tobacco user Tobacco use type: Cigarette Years Smoked: 20 years Smoked in Last 30 Days: No e-Cigarette/Vaping Use: Never Used Use of substances other than those prescribed or required for medical reasons: No Advance Directives: No Advance Directives Information Provided: No Nutrition Risks: No Nutritional Risk service: No Current occupational status: retired Cognitive needs: No Hearing needs: No Vision needs: Yes Meds Allergies Allergy/AdvReac Type Severity Reaction Status Date / Time codeine [CODEINE] Allergy Unknown UNKNOWN Verified 08/03/23 16:09 Active Medications: Current Medications Acetaminophen (Acetaminophen 325 Mg Tablet) 650 mg PO Q6H PRN PRN Reason: Pain, Mild (Pain Scale 1-3) Atorvastatin Calcium (Atorvastatin Calcium 40 Mg Tablet) 40 mg PO DAILY [facility] Last Admin: 08/04/23 08:08 Dose: 40 mg Carvedilol (Carvedilol 3.125 Mg Tablet) 3.125 mg PO BID [facility]; Protocol Last Admin: 08/04/23 08:08 Dose: 3.125 mg Cyanocobalamin (Cyanocobalamin (Vitamin B-12) 1,000 Mcg Tablet) 1,000 mcg PO DAILY [facility] Last Admin: 08/04/23 08:08 Dose: 1,000 mcg Dextrose (Dextrose 50 % 25 Gm/50 Ml Syringe) 25 gm IVPUSH Q15M PRN; Protocol PRN Reason: per Hypoglycemia Standing Ord. Glucose (Glucose Gel 15 Gm Gel..Gram.) 15 gm PO Q15M PRN; Protocol PRN Reason: per Hypoglycemia Standing Ord. Insulin Glargine (Insulin Glargine,Hum.Rec.Anlog 100 Unit/Ml 10 Ml Vial) 18 unit SUBCUT BEDTIME [facility] Last Admin: 08/03/23 21:56 Dose: 18 unit Insulin Human Lispro (Insulin Lispro 100 Unit/Ml 3 Ml Vial) 0 unit SUBCUT QIDACHS [facility]; Protocol Last Admin: 08/04/23 08:09 Dose: 2 unit Ondansetron HCl (Ondansetron Hcl 4 Mg/2 Ml Vial) 4 mg IVPUSH Q8H PRN PRN Reason: Nausea and Vomiting Pantoprazole Sodium (Pantoprazole Sodium 40 Mg/10 Ml Vial) 40 mg IVPUSH BID@0630,1630 [facility] Last Admin: 08/04/23 08:09 Dose: 40 mg Sacubitril/Valsartan (Sacubitril/Valsartan 1 Tab Tablet) 1 tab PO BID [facility]; Protocol Last Admin: 08/04/23 08:13 Dose: 1 tab Sodium Chloride (0.9 % Sodium Chloride Flush 3 Ml Syringe) 3 ml IVFLUSH QSHIFT [facility] Last Admin: 08/04/23 08:14 Dose: 3 ml Spironolactone (Spironolactone 25 Mg Tablet) 25 mg PO DAILY [facility]; Protocol Last Admin: 08/04/23 08:08 Dose: 25 mg Trazodone HCl (Trazodone Hcl 50 Mg Tablet) 50 mg PO BEDTIME [facility] Last Admin: 08/03/23 21:55 Dose: 50 mg Home Medications Medication Instructions Recorded Confirmed Last Taken Type insulin glargine-yfgn 100 unit/mL 35 unit subcut BEDTIME 10/13/22 08/03/23 08/02/22 History (3 mL) subcutaneous pen (Semglee (insulin glargine-yfgn) Pen) insulin lispro 100 unit/mL 15 unit subcut BID 10/13/22 08/03/23 08/03/22 History subcutaneous pen (Humalog KwikPen (U-100) Insulin) dulaglutide 3 mg/0.5 mL 3 mg subcut MO 08/03/23 08/03/23 07/31/23 History subcutaneous pen injector (Trulicity) trazodone 50 mg tablet 50 mg PO BEDTIME 08/03/23 08/03/23 08/02/22 History Physical Exam Vital Signs: Vital Signs: Last Vital Signs Temp 97.6 F 08/04/23 06:48 Pulse 74 08/04/23 06:48 Resp 16 08/04/23 06:48 BP 112/74 08/04/23 06:48 Pulse Ox 98 08/04/23 06:48 O2 Del Method Room Air 08/04/23 06:48 O2 Flow Rate 2 08/03/23 18:15 BMI result Body Mass Index 28.9 Const: General: no acute distress Nutritional Appearance: overweight Orientation/consciousness: patient oriented x3 Limitations: no limitations HEENT: Head: Yes normal to inspection Ears: hearing grossly normal bilaterally Eyes: Sclerae: sclerae normal Pupils: Equal, round and reactive pupils present Neck: Neck: Yes normal visual inspection Chest: Chest palpation & inspection: normal inspection of the chest Resp: Effort & Inspection: normal respiratory effort Auscultation: clear to auscultation bilaterally Cardio: Palpation: normal PMI Rate: regular rate Rhythm: regular rhythm Heart sounds: S1 normal heart sound present, S2 normal heart sound present and no murmurs GI: Palpation (GI): Soft to palpation, nontender and No hepatosplenomegaly present Auscultation: normal bowel sounds Rectal Exam - Male: Yes deferred Skin: General skin exam: no rashes or lesions noted Neuro: General: patient oriented x3, gait normal and moves all extremities Cranial nerves: Yes Equal, round and reactive pupils present Psych: Appearance: grossly normal Mental Status: mental status grossly normal Results Labs 08/04/23 06:29 08/04/23 06:29 Labs: Short CBC 08/03/23 08/04/23 Range/Units 16:38 06:29 WBC 7.4 7.4 (4.8-10.8) X10*3/uL Hgb 6.4 L* 8.2 L D (14.0-18.0) g/dl Hct 23.0 L 28.0 L D (42.0-52.0) % Plt Count 305 251 (160-400) X10*3/uL BMP 08/03/23 08/04/23 16:38 06:29 Sodium 139 141 Potassium 4.4 3.8 Chloride 102 105 Carbon Dioxide 26 26 BUN 27 H 24 H Creatinine 1.40 1.11 Calcium 9.4 D 8.9 Liver Function 08/03/23 Range/Units 16:38 Total Bilirubin 0.5 (0.0-1.0) mg/dL AST 24 (5-37) U/L ALT 15 (0-40) U/L Alkaline Phosphatase 70 (39-117) U/L Albumin 4.3 (3.5-5.0) g/dL Assessment and Plan (1) Anemia: Status: Acute (2) GI bleed: Status: Acute Plan 68 YM with DM2 with neuropathy, B12 defiency, and excess alcohol intake, CAD s/p 3V CABG with subsequent failure of SVG to LAD causing HFrEF, which recovered after MIN from LCA to LAD. Pt has paroxysmal AF and underwent SHON occlusion during the CABG and is on clopdiogrel and rivaroxaban. Pt was admitted on 08/03/23 when he was found to have Hb 6 with MCV 79 on routine laboratory studies and advised to go to [facility] ED for blood transfusion. Recheck in the ED confirmed Hb of 6.4. Prior Hb on 01/07/23 was 10.4 Also some degree of ANNETTE with Cr 1.4, compared to baseline of 0.88 on 06/27/23. FOBT was positive. 2 Units PRBC were transfused overnight and FU H&H was 8.2 & 28. Pt reports having an EGD and [place] [facility] [place],. Colonoscopy showed large polyps which could not be removed since pt was on anticoagulation. Repeat colonoscopy was performed 04/11/23 which showed internal hemorrhoids and 6 sessile polyps were removed. Recurrent anemia with intermittent black stools is suggestive of blood loss from UGI or small bowel source. RECOMMENDATIONS: 1. Agree with IV PPI 2. Monitor CBC daily 3. Pt is scheduled for an EGD on 08/05/23 at 8:[address] Culp. Procedure and potential complications were reviewed with the patient who would like to proceed. Procedures Date of Service Date of Service: 08/04/23
[2023-08-04 12:45] VITALS: BP 101/44; PULSE 72; RESP 16; TEMP 36.7; O2SAT 99
--- NOTE | 2023-08-04 15:46 | MHC.CM.PN ---
PT REPORTS HE LIVES AT HOME WITH HIS AND IS INDEPENDENT WITH CARE HE HAS NO DME AND NO HOME SERVICES PT REPORTS HE HAS A HCP NAMING HIS HIS AGENT, COPY REQUESTED PCP: REGIGE DE LA FUENTE IMM DELIVERED DCP: HOME NO SERVICES TO TRANSPORT
[2023-08-04 19:19] VITALS: BP 103/51; PULSE 77; RESP 13; TEMP 36.7; O2SAT 100
--- NOTE | 2023-08-04 22:52 | MHC.EDTECH ---
Patient has been getting up and using the rest room on his own, Unable to properly document input and output.
--- NOTE | 2023-08-05 06:08 | MHC.EDTECH ---
Patient has been taking himself to he bathroom, unable to properly document I&O
[2023-08-05 06:51] VITALS: BP 98/55; PULSE 74; RESP 16; O2SAT 96
--- NOTE | 2023-08-05 07:09 | MHC.SHP ---
Pre-Procedural Eval Section A Date of Service: 08/05/23 The patient is an INPATIENT: Yes The History & Physical has been completed within 30 days and I have reviewed it.: Yes Section B Chief Complaint: anemia fobt+ Allergies: Allergies Allergy/AdvReac Type Severity Reaction Status Date / Time codeine [CODEINE] Allergy Unknown UNKNOWN Verified 08/03/23 16:09 Plan I have reviewed the history and physical and performed a pertinent physical examination on my patient. No changes have occurred unless specified. Time Spent With Patient Time: Total time managing care of this patient today ____ minutes.
--- NOTE | 2023-08-05 08:20 | PC.NURSE ---
patient off floor for upper endoscopy
[2023-08-05 08:33] VITALS: BP 134/87; PULSE 72; RESP 18; TEMP 36.6; O2SAT 97
--- NOTE | 2023-08-05 09:11 | W.PM.OPN ---
Operative Note Operative Note Date of Service: 08/05/23 Narrative: Procedure Description: EGD and push enteroscopy Indication: melena, anemia Anesthesia: MAC FLEXIBLE TRANSORAL UPPER GASTROINTESTINAL ENDOSCOPY AND PUSH ENTEROSCOPY UPPER ENDOSCOPY Consent: Indications for the procedure and potential complications of bleeding, perforation, reaction to medications and missed diagnosis were discussed with the patient and informed consent was obtained. Instrument: Olympus GIF H 190 J mid size upper endoscope and pediatric colonoscope Monitoring: Vital signs and clinical assessment, continuous EKG monitoring, Pulse oximetry, Carbon Dioxide monitoring and blood pressure monitoring were done throughout the procedure. Procedure: The patient was placed in the left lateral decubitis position and pre-procedure medications were administered and a bite block was placed. The endoscope was inserted into the mouth and advanced under direct vision to the third part of duodenum. A careful inspection was made as the upper endoscope was withdrawn including a retroflexed examination of the proximal stomach; Findings and interventions are described below. Findings: Larynx:normal Esophagus: GE junction at 41 cm, diaphragm hiatus at 41 cm, mild esophagitis noted Stomach: Normal mucosa. Grade 2 flap valve on retroflexed examination of the cardia. No gastric varices seen Duodenum: moderate bulbar duodenitis jejunum: normal, no blood seen Intervention: None Impression/Findings: duodenitis esophagitis no active bleeding PLAN: High dose PPI BID for 3 months Carafate 1 g for 4 weeks restart plavix today and rivaroxiban tomorrow outpatient capsule endoscopy
--- NOTE | 2023-08-05 09:12 | HO.ANESPROP2 ---
[facility] Active Problems Active Problems: All Active Problems (Updated 08/03/23 @ 17:49 by Tali Burton MD) Anemia (Acute) GI bleed (Acute) Peripheral vascular disease (Acute) Pain in right shoulder (Acute) Heart failure (Acute) Blood pressure alteration (Acute) CAD (coronary artery disease) (Acute) Stented coronary artery (Acute) B12 deficiency (Acute) Difficulty sleeping (Acute) Diabetic neuropathy (Acute) Encounter for general adult medical examination with abnormal findings (Acute) Diabetes mellitus (Acute) Alcoholism (Acute) Anxiety, generalized (Acute) Establishing care with new doctor, encounter for (Acute) Obesity due to excess calories (Acute) HTN (hypertension) (Acute) Paroxysmal atrial fibrillation (Acute) Diabetic nephropathy associated with type 2 diabetes mellitus (Acute) Diabetes type 2, controlled (Acute) Past Medical History Medical History Heart failure with reduced ejection fraction Ischemic cardiomyopathy CAD (coronary artery disease) HTN (hypertension) Paroxysmal atrial fibrillation Diabetic nephropathy associated with type 2 diabetes mellitus Diabetes type 2, controlled Family History Family History Father CVD (cardiovascular disease) S/P triple vessel bypass Mother CVD (cardiovascular disease) Sudden cardiac Other Substance use disorder Family history of problems with anesthesia: No Surgical History Surgical History Stented coronary artery S/P CABG x 3 History of Problems with Anesthesia: No Social History Social History Housing: Apartment Alcohol intake: current Alcohol intake frequency: 0-2 drinks per day Alcohol type: hard liquor Patient Tobacco Use Status: Former Tobacco user Tobacco use type: Cigarette Years Smoked: 20 years Smoked in Last 30 Days: No e-Cigarette/Vaping Use: Never Used Use of substances other than those prescribed or required for medical reasons: No Are you DNR?: No Advance Directives: No Advance Directives Information Provided: No Nutrition Risks: No Nutritional Risk service: No Current occupational status: retired Cognitive needs: No Hearing needs: No Vision needs: Yes Meds Allergies Allergy/AdvReac Type Severity Reaction Status Date / Time codeine [CODEINE] Allergy Unknown UNKNOWN Verified 08/03/23 16:09 Active Medications: Current Medications Acetaminophen (Acetaminophen 325 Mg Tablet) 650 mg PO Q6H PRN PRN Reason: Pain, Mild (Pain Scale 1-3) Atorvastatin Calcium (Atorvastatin Calcium 40 Mg Tablet) 40 mg PO DAILY [facility] Last Admin: 08/05/23 08:22 Dose: Not Given Carvedilol (Carvedilol 3.125 Mg Tablet) 3.125 mg PO BID [facility]; Protocol Last Admin: 08/05/23 08:22 Dose: Not Given Cyanocobalamin (Cyanocobalamin (Vitamin B-12) 1,000 Mcg Tablet) 1,000 mcg PO DAILY [facility] Last Admin: 08/05/23 08:22 Dose: Not Given Dextrose (Dextrose 50 % 25 Gm/50 Ml Syringe) 25 gm IVPUSH Q15M PRN; Protocol PRN Reason: per Hypoglycemia Standing Ord. Glucose (Glucose Gel 15 Gm Gel..Gram.) 15 gm PO Q15M PRN; Protocol PRN Reason: per Hypoglycemia Standing Ord. Insulin Glargine (Insulin Glargine,Hum.Rec.Anlog 100 Unit/Ml 10 Ml Vial) 18 unit SUBCUT BEDTIME [facility] Last Admin: 08/04/23 21:55 Dose: 18 unit Insulin Human Lispro (Insulin Lispro 100 Unit/Ml 3 Ml Vial) 0 unit SUBCUT QIDACHS [facility]; Protocol Last Admin: 08/05/23 08:21 Dose: Not Given Ondansetron HCl (Ondansetron Hcl 4 Mg/2 Ml Vial) 4 mg IVPUSH Q8H PRN PRN Reason: Nausea and Vomiting Pantoprazole Sodium (Pantoprazole Sodium 40 Mg/10 Ml Vial) 40 mg IVPUSH BID@0630,1630 [facility] Last Admin: 08/05/23 06:45 Dose: 40 mg Sacubitril/Valsartan (Sacubitril/Valsartan 1 Tab Tablet) 1 tab PO BID [facility]; Protocol Last Admin: 08/05/23 08:22 Dose: Not Given Sodium Chloride (0.9 % Sodium Chloride Flush 3 Ml Syringe) 3 ml IVFLUSH QSHIFT [facility] Last Admin: 08/05/23 08:21 Dose: Not Given Spironolactone (Spironolactone 25 Mg Tablet) 25 mg PO DAILY [facility]; Protocol Last Admin: 08/05/23 08:23 Dose: Not Given Trazodone HCl (Trazodone Hcl 50 Mg Tablet) 50 mg PO BEDTIME [facility] Last Admin: 08/04/23 21:56 Dose: 50 mg Home Medications Medication Instructions Recorded Confirmed Last Taken Type insulin glargine-yfgn 100 unit/mL 35 unit subcut BEDTIME 10/13/22 08/03/23 08/02/22 History (3 mL) subcutaneous pen (Semglee (insulin glargine-yfgn) Pen) insulin lispro 100 unit/mL 15 unit subcut BID 10/13/22 08/03/23 08/03/22 History subcutaneous pen (Humalog KwikPen (U-100) Insulin) dulaglutide 3 mg/0.5 mL 3 mg subcut MO 08/03/23 08/03/23 07/31/23 History subcutaneous pen injector (Trulicity) trazodone 50 mg tablet 50 mg PO BEDTIME 08/03/23 08/03/23 08/02/22 History Exam Height,Weight and Vital Signs: Height 5 ft 8 in Weight 86.183 kg Last Vital Signs Temp 98 F 08/05/23 08:33 Pulse 72 08/05/23 08:33 Resp 18 08/05/23 08:33 BP 134/87 08/05/23 08:33 Pulse Ox 97 08/05/23 08:33 O2 Del Method Room Air 08/05/23 08:33 O2 Flow Rate 2 08/03/23 18:15 Pertinent Lab Results Pertinent Lab Results: Laboratory Tests 08/03/23 08/03/23 08/03/23 16:38 16:41 20:11 WBC 7.4 RBC 2.97 L Hgb 6.4 L* Hct 23.0 L MCV 77.4 L MCH 21.5 L MCHC 27.8 L RDW 16.1 H Plt Count 305 MPV 9.8 Immature Gran % (Auto) 0.4 Neut % (Auto) 69.2 Lymph % (Auto) 15.6 L Calhoun % (Auto) 10.3 Eos % (Auto) 3.5 Baso % (Auto) 1.0 Lymph # (Auto) 1.2 Calhoun # (Auto) 0.8 Eos # (Auto) 0.3 Baso # (Auto) 0.1 Abs Immat Gran (auto) 0.03 Absolute Neuts (auto) 5.1 Absolute Nucleated RBC 0.000 Nucleated RBC % (auto) 0.0 PT 15.6 H D INR 1.3 H APTT 37.4 H Sodium 139 Potassium 4.4 Chloride 102 Carbon Dioxide 26 Anion Gap 15 BUN 27 H Creatinine 1.40 Estim Creat Clear Calc 54.6 Estimated GFR 51 POC Glucose 121 H Random Glucose 222 H Calcium 9.4 D Total Bilirubin 0.5 AST 24 ALT 15 Alkaline Phosphatase 70 Total Protein 7.5 Albumin 4.3 Stool Occult Blood POSITIVE Blood Type O Positive Antibody Screen NEGATIVE Crossmatch See Detail 08/04/23 08/04/23 08/04/23 06:29 07:07 13:07 WBC 7.4 RBC 3.54 L Hgb 8.2 L D Hct 28.0 L D MCV 79.1 L MCH 23.2 L MCHC 29.3 L RDW 16.1 H Plt Count 251 MPV 10.0 Immature Gran % (Auto) Neut % (Auto) Lymph % (Auto) Calhoun % (Auto) Eos % (Auto) Baso % (Auto) Lymph # (Auto) Calhoun # (Auto) Eos # (Auto) Baso # (Auto) Abs Immat Gran (auto) Absolute Neuts (auto) Absolute Nucleated RBC 0.000 Nucleated RBC % (auto) 0.0 PT INR APTT Sodium 141 Potassium 3.8 Chloride 105 Carbon Dioxide 26 Anion Gap 14 BUN 24 H Creatinine 1.11 Estim Creat Clear Calc 68.9 Estimated GFR > 60 POC Glucose 150 H 161 H Random Glucose 132 H Calcium 8.9 Total Bilirubin AST ALT Alkaline Phosphatase Total Protein Albumin Stool Occult Blood Blood Type Antibody Screen Crossmatch 08/04/23 08/04/23 08/05/23 18:10 21:35 06:34 WBC RBC Hgb 8.3 L Hct 28.2 L MCV MCH MCHC RDW Plt Count MPV Immature Gran % (Auto) Neut % (Auto) Lymph % (Auto) Calhoun % (Auto) Eos % (Auto) Baso % (Auto) Lymph # (Auto) Calhoun # (Auto) Eos # (Auto) Baso # (Auto) Abs Immat Gran (auto) Absolute Neuts (auto) Absolute Nucleated RBC Nucleated RBC % (auto) PT INR APTT Sodium Potassium Chloride Carbon Dioxide Anion Gap BUN Creatinine Estim Creat Clear Calc Estimated GFR POC Glucose 169 H 170 H Random Glucose Calcium Total Bilirubin AST ALT Alkaline Phosphatase Total Protein Albumin Stool Occult Blood Blood Type Antibody Screen Crossmatch 08/05/23 07:54 WBC RBC Hgb Hct MCV MCH MCHC RDW Plt Count MPV Immature Gran % (Auto) Neut % (Auto) Lymph % (Auto) Calhoun % (Auto) Eos % (Auto) Baso % (Auto) Lymph # (Auto) Calhoun # (Auto) Eos # (Auto) Baso # (Auto) Abs Immat Gran (auto) Absolute Neuts (auto) Absolute Nucleated RBC Nucleated RBC % (auto) PT INR APTT Sodium Potassium Chloride Carbon Dioxide Anion Gap BUN Creatinine Estim Creat Clear Calc Estimated GFR POC Glucose 133 H Random Glucose Calcium Total Bilirubin AST ALT Alkaline Phosphatase Total Protein Albumin Stool Occult Blood Blood Type Antibody Screen Crossmatch Airway Mallampati Class: III TM Dist: >3cm Neck ROM: Full Partial: Upper and Lower Assessment and Plan Assessment Anesthesia Assessment: Anesthesia Plan Discussed and Chart Reviewed Final Anesthetic Review Family History of Problems with Anesthesia: No History of Problems with Anesthesia: No NPO: Yes ASA Class: III and Emergency Final Preanesthetic Review: No Changes in Pt Med Stat, Meds/Allgs Chart Reviewed, Consent Obtained/Reviewed and Anes Risks/Benef Reviewed Patient Risk: Intermediate Procedure Risk: Low Anesthetic Plan Anesthetic Plan: TIVA Disposition: Standard PACU
[2023-08-05 09:20] VITALS: BP 95/40; PULSE 70; RESP 15; TEMP 36.2; O2SAT 99
[2023-08-05 09:35] VITALS: BP 106/42; PULSE 70; RESP 18; TEMP 36.3; O2SAT 100
--- NOTE | 2023-08-05 09:38 | PC.NURSE ---
pt drinking liquors nad
[2023-08-05 12:20] VITALS: BP 113/48; PULSE 75; RESP 14; O2SAT 100
--- NOTE | 2023-08-05 12:20 | PM.DS ---
DS: Providers Provider Date of Service: 08/05/23 Date of admission: 08/03/23 18:00 Primary care physician: Yg Levi MD Consults: 08/03/23 17:33 Consult to Gastroenterology Routine Consulting Provider: [facility] Reason for consultation: GIB DS: Diagnosis Discharge Diagnosis (1) Anemia: Status: Acute (2) GI bleed: Status: Acute DS: Summary Hospital Course Hospital Course: Chief Complaint: anemia 68yo M with CAD s/p 3V CABG with subsequent failure of SVG to LAD causing HFrEF, which recovered after MIN from LCA to LAD. He also has paroxysmal AF and underwent SHON occlusion during the CABG. He is on clopdiogrel and rivaroxaban. Other medical history notable for DM2 with neuropathy, B12 defiency, and excess alcohol intake without history of withdrawal. He was sent in by his director call, Fabrice Akhtar, when he was found to have Hb 6 with MCV 79 on routine laboratory studies. Recheck in the ED here confirmed Hb of 6.4. Prior Hb on 01/07/23 was 10.4 Also some degree of ANNETTE with Cr 1.4, compared to baseline of 0.88 on 06/27/23. FOBT is positive. Two units of packed red blood cells have been ordered. He does endorse several months of worsening exertional dyspnea, lightheadedness, and black stools. He had a colonoscopy at [facility] [place] on 04/11/23 demonstrating 6 sessile polyps and internal hemorrhoids. He denies chest pain. Hospital course:Patient had no active bleed, he was transfused 2 units with improved in h/h. He underwent EGD by Dr. Culp on 08/05/23 with findings of duodenitis, esophagitis andno active bleeding and the following plan High dose PPI BID for 3 months Carafate 1 g for 4 weeks restart plavix today and rivaroxiban tomorrow outpatient capsule endoscopy at later time Time Attestation Discharge coordination time: Greater than 30 minutes Quality: Safe Use of Opioids Does Pt have an Active Cancer Diagnosis on the Problem List?: No Quality: Stroke Does the patient have a stroke diagnosis?: No Physical Exam Vital Signs: Vital Signs: Last Vital Signs Temp 97.3 F 08/05/23 09:35 Pulse 70 08/05/23 09:35 Resp 18 08/05/23 09:35 BP 106/42 L 08/05/23 09:35 Pulse Ox 100 08/05/23 09:35 O2 Del Method Room Air 08/05/23 09:35 O2 Flow Rate 2 08/03/23 18:15 BMI result Body Mass Index 28.9 DS: Data Data Completed and Pending Labs on day of discharge: Laboratory Results - last 24 hr 08/04/23 08/04/23 08/04/23 13:07 18:10 21:35 Hgb Hct POC Glucose 161 H 169 H 170 H 08/05/23 08/05/23 06:34 07:54 Hgb 8.3 L Hct 28.2 L POC Glucose 133 H Discharge Plan Discharge Anticipated Discharge Date/Time: 08/05/23 12:20 Patient Disposition: Home, Self-Care Discharge Diagnosis: Acute blood loss anemia, gi bleeding Referrals: Yg Levi MD [Primary Care Provider] - 1 Week Discharge Medications: New sucralfate [Carafate] 1 gram tablet 1 g PO BID Qty: 60 0RF omeprazole 40 mg capsule,delayed release(DR/EC) 40 mg PO BID Qty: 60 2RF Continued metformin 1,000 mg tablet 1,000 mg PO BID Qty: 180 1RF (DME) FreeStyle Sean 14 Day Sensor Kit See Rx Instructions .MEDSUPPLY Qty: 7 2RF Rx Instructions: every 14 days (DME) freestyle sean reader See Rx Instructions .Route .MEDSUPPLY Qty: 1 0RF Rx Instructions: As directed cyanocobalamin (vitamin B-12) 1,000 mcg tablet 1,000 mcg PO DAILY 90 Days Qty: 90 0RF atorvastatin 40 mg tablet 40 mg PO DAILY Qty: 90 3RF Rx Instructions: New dose 40 mg tablet once daily furosemide 20 mg tablet 20 mg PO DAILY Qty: 90 1RF trazodone 50 mg tablet 50 mg PO BEDTIME Trulicity 3 mg/0.5 mL pen injector 3 mg subcut MO insulin glargine-yfgn [Semglee(insulin glarg-yfgn)Pen] 100 unit/mL (3 mL) insulin pen 35 unit subcut BEDTIME insulin lispro [Humalog KwikPen Insulin] 100 unit/mL insulin pen 15 unit subcut BID carvedilol 3.125 mg tablet 3.125 mg PO BID Qty: 180 1RF clopidogrel 75 mg tablet 75 mg PO DAILY Qty: 90 1RF Farxiga 10 mg tablet 10 mg PO DAILY Qty: 90 1RF Xarelto 20 mg tablet 20 mg PO DAILY 90 Days Qty: 90 3RF Entresto 24-26 mg tablet 1 tab PO BID Qty: 180 1RF spironolactone 25 mg tablet 25 mg PO DAILY Qty: 90 1RF Discharge Orders: Discharge Order (Routine); Ordered 08/05/23 Ordered By: Sunny Crocker Diet: Diabetic diet Activity on Discharge: As tolerated Stand Alone Forms: Patient Portal Discharge page Care Plan Goals: resolution and full work up of anemia Health Concerns: anemia duodenitis Plan of Treatment: Take Prilosec 40 mg twice daily for 3 months take Carafate 1 gm twice daily for 4 weeks restart plavix today and rivaroxiban (Xarelto) tomorrow outpatient capsule endoscopy to be arranged by Dr. Culp follow up with your Doctor in a week Assessment: See above
--- NOTE | 2023-08-05 12:21 | PC.NURSE ---
patient awake and alert. skin pwd. resp even and non labored. speaking in full, clear sentences. NSR via tele. patient requesting discharge, hospitalist aware
== END 2023-08-05 13:51 | disposition home or self-care (01) | DRG 241 ==
LOC: HO.ED 17:49 → HO.EDOVER 18:04
PROVIDERS: Internal Medicine Gastroenterology; Admitting Provider Family Medicine; Emergency Provider Emergency Medicine; PCP Internal Medicine; Visit Provider Internal Medicine
PROC: 0DJ08ZZ Inspection of Upper Intestinal Tract, Via Natural or Artificial Opening Endoscopic (ICD-10-PCS; CPT 43235; principal; 2023-08-05 08:30)
DX: K29.81 Duodenitis with bleeding (principal); N17.9 Acute kidney failure, unspecified; I50.32 Chronic diastolic (congestive) heart failure; E11.40 Type 2 diabetes mellitus with diabetic neuropathy, unspecified; D62 Acute posthemorrhagic anemia; I48.0 Paroxysmal atrial fibrillation; I25.10 Atherosclerotic heart disease of native coronary artery without angina pectoris; K20.91 Esophagitis, unspecified with bleeding; E53.8 Deficiency of other specified B group vitamins; I25.5 Ischemic cardiomyopathy; Z95.5 Presence of coronary angioplasty implant and graft; Z87.891 Personal history of nicotine dependence; Z79.4 Long term (current) use of insulin; Z79.01 Long term (current) use of anticoagulants; Z79.02 Long term (current) use of antithrombotics/antiplatelets; Z79.84 Long term (current) use of oral hypoglycemic drugs; Z79.85 Long-term (current) use of injectable non-insulin antidiabetic drugs; Z79.899 Other long term (current) drug therapy
CPT/HCPCS: 36415; 71045; 80048; 80053; 82272; 82947; 85014; 85018; 85025; 85027; 85610; 85730; 86850; 86900; 86901; 86923; 93005; 99285; C9113; J1100; J1940; J2405; J2704; P9016

== ENCOUNTER → 2023-08-03 17:47 | Outpatient (BNV) | payer BC, MEDICARE, SELFPAY | PROVIDERS: Admitting Provider Family Medicine; Emergency Provider Emergency Medicine; PCP Internal Medicine; Visit Provider Internal Medicine Cardiovascular Disease | DX: R06.02 Shortness of breath (principal) | CPT/HCPCS: 93010 ==

== ENCOUNTER → 2023-08-03 18:00 | Outpatient (BNV) | payer BC, MEDICARE, SELFPAY | PROVIDERS: Admitting Provider Family Medicine; Emergency Provider Emergency Medicine; PCP Internal Medicine; Visit Provider Internal Medicine Gastroenterology | DX: K92.1 Melena (principal); D64.9 Anemia, unspecified; K20.90 Esophagitis, unspecified without bleeding; K29.80 Duodenitis without bleeding | CPT/HCPCS: 43235 ==

== ENCOUNTER → 2023-08-03 18:00 | Outpatient (BNV) | payer BC, MEDICARE, SELFPAY | PROVIDERS: Admitting Provider Family Medicine; Emergency Provider Emergency Medicine; PCP Internal Medicine; Visit Provider Family Medicine | DX: D64.9 Anemia, unspecified (principal); K92.2 Gastrointestinal hemorrhage, unspecified | CPT/HCPCS: 99223; 99232; 99239 ==

== ENCOUNTER → 2023-08-03 18:00 | Outpatient (BNV) | payer BC, MEDICARE, SELFPAY | PROVIDERS: Admitting Provider Family Medicine; Emergency Provider Emergency Medicine; PCP Internal Medicine; Visit Provider Internal Medicine Gastroenterology | DX: K92.2 Gastrointestinal hemorrhage, unspecified (principal); D64.9 Anemia, unspecified | CPT/HCPCS: 99232 ==

== ENCOUNTER 2023-08-22 12:16 | Outpatient (AMB) | payer BC, MEDICARE, SELFPAY ==
[2023-08-22 12:21] VITALS: BP 118/46; PULSE 93; O2SAT 94; BMI 30.3
--- NOTE | 2023-08-22 12:21 | A.OFFPC_ITS ---
Vital Signs 08/22/23 12:21 Height 5 ft 8 in Weight 199 lb 6 oz BMI 30.3 BP 118/46 L Blood Pressure Location Rt brachial Position Sitting Pulse 93 Pulse Source Pulse Oximeter Pulse Oximetry (%) 94 Oxygen Delivery Method Room Air Intake Visit Reasons: [facility] fu Anemia Allergies codeine [CODEINE] Allergy (Unknown, Verified 08/22/23 12:25) UNKNOWN Medication List - Last Reconciled 08/22/23 by Yg Levi MD atorvastatin 40 mg PO DAILY carvedilol 3.125 mg PO BID clopidogrel 75 mg PO DAILY cyanocobalamin (vitamin B-12) 1,000 mcg PO DAILY 90 days dapagliflozin propanediol (Farxiga) 10 mg PO DAILY dulaglutide (Trulicity) 3 mg subcut MO flash glucose sensor ([employer] [place] [employer] Sean 14 Day Sensor kit) every 14 days [[employer] sean reader As directed] furosemide 20 mg PO DAILY insulin glargine-yfgn (Semglee (insulin glargine-yfgn) Pen) 35 units subcut BEDTIME insulin lispro (Humalog KwikPen (U-100) Insulin) 15 units subcut BID metformin 1,000 mg PO BID omeprazole 40 mg PO BID rivaroxaban (Xarelto) 20 mg PO DAILY 90 days sacubitril-valsartan 24-26 mg (Entresto) 1 tab PO BID spironolactone 25 mg PO DAILY sucralfate (Carafate) 1 g PO BID trazodone 50 mg PO BEDTIME Tobacco use date assessed: 08/22/23 Fall risk assessment: No Falls in past year Last assessed Fall Risk: 08/22/23 Dental Screening Dental Screen Date: 08/22/23 Did you have a dental visit in the last 12 months?: Yes Did you have a dental problem in the last 6 months where you did not have access to dental care?: No Was dental information given to patient?: Patient has dentist HPI [facility] fu Anemia HPI Details Patient is 68-year-old gentleman who was sent to [facility] on 08/03/[address] Akhtar to be evaluated for low hemoglobin. Patient had a routine workup done and found to have a hemoglobin 6.4 Patient is on blood thinners Xarelto for paroxysmal atrial fibrillation Patient was having black stools 4 weeks prior to labs and was feeling generalized weakness and dyspnea on exertion It was given 1 unit of packed RBC and 1 dose of Protonix in emergency room His hemoglobin improved to 8.2 Chest x-ray showed no acute finding EKG was no acute findings Patient is scheduled for capsule endoscopy 08 of September He also is going to have cataract surgery 1 me to clear him for cataract surgery However I paperwork from his mobile marketing specialist located in [place] Patient is to let me know the name of And facility so we can get the paperwork from them before we clear him He continued to drink once again we talked about the alcohol toxicity and the possibility of bleeding because of alcohol He was started on Carafate and omeprazole in-hospital but no iron supplement I will be repeating labs again today to follow-up on his hemoglobin last time he had labs done was early this month Patient has seen Endocrinology his blood sugars are stable now he me to take over He is requesting the sensory script which I have sent, patient says that his sugar has been running around 130 He is on Trulicity 3 mg Long-acting insulin 35 units daily Humalog 15 units b.i.d. Metformin 1 g b.i.d. Faxiga 10 mg daily [facility] Medical History Heart failure with reduced ejection fraction Ischemic cardiomyopathy CAD (coronary artery disease) HTN (hypertension) Paroxysmal atrial fibrillation Diabetic nephropathy associated with type 2 diabetes mellitus Diabetes type 2, controlled Surgical History Stented coronary artery S/P CABG x 3 Family History Father CVD (cardiovascular disease) S/P triple vessel bypass Mother CVD (cardiovascular disease) Sudden cardiac Other Substance use disorder Social History Housing: Apartment Alcohol intake: current Alcohol intake frequency: 0-2 drinks per day Alcohol type: hard liquor Patient Tobacco Use Status: Former Tobacco user Tobacco use type: Cigarette Years Smoked: 20 years e-Cigarette/Vaping Use: Never Used service: No Current occupational status: retired Cognitive needs: No Hearing needs: No Vision needs: Yes Questionnaire Thrive Questionnaire Date Thrive assessed: 08/04/23 AUDIT C Alcohol Use Questionnaire (AUDIT-C) 1. How often do you have a drink containing alcohol?: 2-3 times a week 2. How many drinks containing alcohol do you have on a typical day when you are drinking?: 3 or 4 3. How often do you have six or more drinks on one occasion?: Never Total Score: 4 Score Reviewed/Action Taken: Yes YOANA-7 AMB Questionnaire YOANA-7 Date YOANA - 7 assessed: 03/08/22 Source: Developed by Drs. Asif Davis, Kaitlin Frias, Lucian Recinos and colleagues, with an educational yaritza from [employer]. Review of Systems Const Denies chills and Denies fever(s) ENT Denies epistaxis and Denies nasal discharge Card Denies chest pain Resp Denies chest congestion, Denies cough and Denies hemoptysis GI Denies diarrhea and Denies nausea Skin/Breast Denies rash Neuro Reports no additional complaints Psych Reports no additional complaints Endo Reports no additional complaints Physical exam (Primary Care) Vital Signs: Last Vital Signs Pulse 93 08/22/23 12:21 BP 118/46 L 08/22/23 12:21 Pulse Ox 94 08/22/23 12:21 Oxygen Delivery Method Room Air 08/22/23 12:21 BMI result Body Mass Index 30.3 Tobacco/Smoking Status: Tobacco use Status Tobacco use date assessed 08/22/23 08/22/23 12:25 Patient Tobacco Use Status Former Tobacco user 08/22/23 12:25 Tobacco use type Cigarette 08/22/23 12:25 e-Cigarette/Vaping Use Never Used 08/22/23 12:25 Thrive Assessment: Date of Thrive Assessment Date Thrive assessed 08/04/23 08/22/23 12:25 Const General: cooperative, comfortable and no acute distress Orientation/consciousness: patient oriented x3 HENMT Head: Yes normocephalic Eyes General: appearance normal, both eyes and all related structures Neck Neck: Yes supple Resp Effort & Inspection: normal respiratory effort, no cough and no stridor Cardio Rhythm: regular rhythm Heart sounds: S1 normal heart sound present and S2 normal heart sound present Skin General skin exam: turgor normal Neuro General: patient oriented x3, tone normal and moves all extremities Extrem Right lower extremity: no edema Left lower extremity: no edema Assessment and Plan Assessment & Plan (1) Anemia: Code(s): D64.9 - Anemia, unspecified Qualifiers: Anemia type: iron deficiency Iron deficiency anemia type: chronic blood loss Qualified Code(s): D50.0 - Iron deficiency anemia secondary to blood loss (chronic) (2) Diabetic neuropathy: Code(s): E11.40 - Type 2 diabetes mellitus with diabetic neuropathy, unspecified Qualifiers: Diabetes mellitus type: type 2 Diabetes mellitus complication detail: diabetic autonomic neuropathy Qualified Code(s): E11.43 - Type 2 diabetes mellitus with diabetic autonomic (poly)neuropathy (3) Diabetic nephropathy associated with type 2 diabetes mellitus: Code(s): E11.21 - Type 2 diabetes mellitus with diabetic nephropathy (4) Paroxysmal atrial fibrillation: Code(s): I48.0 - Paroxysmal atrial fibrillation (5) HTN (hypertension): Code(s): I10 - Essential (primary) hypertension Qualifiers: Hypertension type: primary hypertension Qualified Code(s): I10 - Essential (primary) hypertension (6) B12 deficiency: Code(s): E53.8 - Deficiency of other specified B group vitamins (7) Pain in right shoulder: Code(s): M25.511 - Pain in right shoulder Qualifiers: Chronicity: chronic Qualified Code(s): M25.511 - Pain in right shoulder; G89.29 - Other chronic pain (8) Peripheral vascular disease: Code(s): I73.9 - Peripheral vascular disease, unspecified (9) CAD (coronary artery disease): Code(s): I25.10 - Atherosclerotic heart disease of [place] coronary artery without angina pectoris Qualifiers: Coronary Disease-Associated Artery/Lesion type: [place] artery [place] vs. transplanted heart: [place] heart Associated angina: with stable angina Qualified Code(s): I25.118 - Atherosclerotic heart disease of [place] coronary artery with other forms of angina pectoris (10) Stented coronary artery: Comment: MIN to [place] LM to LAD for SVG graft failure, 03/2023 Code(s): Z95.5 - Presence of coronary angioplasty implant and graft (11) Diabetes mellitus: Code(s): E11.9 - Type 2 diabetes mellitus without complications Qualifiers: Diabetes mellitus type: type 2 Diabetes mellitus halfway insulin use: with long wall shear operator use Diabetes mellitus complication status: with neurologic complications Diabetes mellitus complication detail: with autonomic neuropathy Qualified Code(s): E11.43 - Type 2 diabetes mellitus with diabetic autonomic (poly)neuropathy; Z79.4 - terminal gauger supervisor (current) use of insulin (12) Alcoholism: Code(s): F10.20 - Alcohol dependence, uncomplicated (13) Anxiety, generalized: Code(s): F41.1 - Generalized anxiety disorder Plan Patient is 68-year-old gentleman who was sent to [facility] on 08/03/[address] Akhtar to be evaluated for low hemoglobin. Patient had a routine workup done and found to have a hemoglobin 6.4 Patient is on blood thinners Xarelto for paroxysmal atrial fibrillation Patient was having black stools 4 weeks prior to labs and was feeling generalized weakness and dyspnea on exertion It was given 1 unit of packed RBC and 1 dose of Protonix in emergency room His hemoglobin improved to 8.2 Chest x-ray showed no acute finding EKG was no acute findings Patient is scheduled for capsule endoscopy 08 of September He also is going to have cataract surgery 1 me to clear him for cataract surgery However I paperwork from his mobile marketing specialist located in [place] Patient is to let me know the name of And facility so we can get the paperwork from them before we clear him He continued to drink once again we talked about the alcohol toxicity and the possibility of bleeding because of alcohol He was started on Carafate and omeprazole in-hospital but no iron supplement I will be repeating labs again today to follow-up on his hemoglobin last time he had labs done was early this month Patient has seen Endocrinology his blood sugars are stable now he me to take over He is requesting the sensory script which I have sent, patient says that his sugar has been running around 130 He is on Trulicity 3 mg Long-acting insulin 35 units daily Humalog 15 units b.i.d. Metformin 1 g b.i.d. Faxiga 10 mg daily Follow-up 3 months or early depending on lab report Orders: Orders Complete Blood Count Auto Diff Today D64.9 - Anemia, unspecified Ferritin Today D64.9 - Anemia, unspecified Medications: Refilled flash glucose sensor ([employer] Sean 14 Day Sensor kit) every 14 days 7 ea 2RF E11.65 - Type 2 diabetes mellitus with hyperglycemia Coding Level of Care Code Est Pt Level 5 (03626) Diagnoses Iron deficiency anemia due to chronic blood loss D50.0 Anemia type: iron deficiency Iron deficiency anemia type: chronic blood loss Diabetic autonomic neuropathy associated with type 2 diabetes mellitus E11.43 Diabetes mellitus type: type 2 Diabetes mellitus complication detail: diabetic autonomic neuropathy Diabetic nephropathy associated with type 2 diabetes mellitus E11.21 Paroxysmal atrial fibrillation I48.0 Primary hypertension I10 Hypertension type: primary hypertension B12 deficiency E53.8 Chronic right shoulder pain M25.511; G89.29 Chronicity: chronic Peripheral vascular disease I73.9 Coronary artery disease of [place] artery of [place] heart with stable angina pectoris I25.118 Coronary Disease-Associated Artery/Lesion type: [place] artery [place] vs. transplanted heart: [place] heart Associated angina: with stable angina Stented coronary artery Z95.5 Type 2 diabetes mellitus with diabetic autonomic neuropathy, with long-term current use of insulin E11.43; Z79.4 Diabetes mellitus type: type 2 Diabetes mellitus halfway insulin use: with halfway use Diabetes mellitus complication status: with neurologic complications Diabetes mellitus complication detail: with autonomic neuropathy Alcoholism F10.20 Anxiety, generalized F41.1 Time Spent (min) 40 Comment 6 minute pre visit, 23 minute with patient, 6 minute charting, 5 coordination of care
== END 2023-08-22 13:02 | disposition home or self-care (01) ==
PROVIDERS: PCP Internal Medicine; Visit Provider Internal Medicine
DX: E11.43 Type 2 diabetes mellitus with diabetic autonomic (poly)neuropathy (principal); E11.21 Type 2 diabetes mellitus with diabetic nephropathy; I48.0 Paroxysmal atrial fibrillation; I73.9 Peripheral vascular disease, unspecified; I25.118 Atherosclerotic heart disease of native coronary artery with other forms of angina pectoris; Z79.4 Long term (current) use of insulin; F10.20 Alcohol dependence, uncomplicated; D50.0 Iron deficiency anemia secondary to blood loss (chronic); I10 Essential (primary) hypertension; E53.8 Deficiency of other specified B group vitamins; M25.511 Pain in right shoulder; G89.29 Other chronic pain
CPT/HCPCS: 99215

== ENCOUNTER 2023-08-22 13:02 | Outpatient (REF) | payer BC, MEDICARE, SELFPAY ==
[2023-08-22 16:03] LABS: MANUAL DIFF FLAG NO
[2023-08-22 16:19] LABS: Basophils Absolute Auto 0.1 X10*3/uL (0.0-0.2); Basophils Percent Auto 1.1 % (0-2); Eosinophils Absolute Auto 0.2 X10*3/uL (0.0-0.4); Eosinophils Percent Auto 2.6 % (0-4); Hemoglobin 7.6 g/dl (14.0-18.0); Imm Gran Abs Auto 0.02 X10*3/uL (0.00-0.03); Imm Gran Pct Auto 0.3 % (0.0-0.4); Lymphocytes Absolute Auto 1.2 X10*3/uL (1.2-4.9); Lymphocytes Percent Auto 18.2 % (20-40); Mean Corpuscular HGB Conc 28.1 g/dl (31.0-36.0); Mean Corpuscular Volume 81.8 fL (80.0-98.0); Mean Platelet Volume 10.7 fL (9.4-12.4); Monocytes Absolute Auto 0.8 X10*3/uL (0.1-1.2); Monocytes Percent Auto 11.5 % (2-11); Neutrophils Absolute Auto 4.4 x10*3/uL (2.0-8.3); Neutrophils Percent Auto 66.3 % (45-73); Platelet Count 284 X10*3/uL (160-400); Red Cell Distribution Width 17.7 % (11.0-16.0); White Blood Count 6.6 X10*3/uL (4.8-10.8)
[2023-08-22 16:38] LABS: Ferritin 10 ng/mL (20-250)
== END 2023-08-22 13:03 | disposition home or self-care (01) ==
LOC: HO.HMGCLDS 13:02
PROVIDERS: PCP Internal Medicine; Visit Provider Internal Medicine
DX: D64.9 Anemia, unspecified (principal)
CPT/HCPCS: 36415; 82728; 85025

== ENCOUNTER 2023-08-24 07:37 | Outpatient (AMB) | payer BC, MEDICARE, SELFPAY ==
--- NOTE | 2023-08-24 08:55 | MHC.PC.OV ---
Vital Signs 08/24/23 08:56 Height 5 ft 8 in Intake Visit Reasons: Discuss Labs ~[phone] Allergies codeine [CODEINE] Allergy (Unknown, Verified 08/24/23 08:55) UNKNOWN Medication List - Last Reconciled 08/24/23 by Yg Levi MD atorvastatin 40 mg PO DAILY carvedilol 3.125 mg PO BID clopidogrel 75 mg PO DAILY cyanocobalamin (vitamin B-12) 1,000 mcg PO DAILY 90 days dapagliflozin propanediol (Farxiga) 10 mg PO DAILY dulaglutide (Trulicity) 3 mg subcut MO flash glucose sensor ([employer] Sean 14 Day Sensor kit) every 14 days [freestyle sean reader As directed] furosemide 20 mg PO DAILY insulin glargine-yfgn (Semglee (insulin glargine-yfgn) Pen) 35 units subcut BEDTIME insulin lispro (Humalog KwikPen (U-100) Insulin) 15 units subcut BID metformin 1,000 mg PO BID omeprazole 40 mg PO BID rivaroxaban (Xarelto) 20 mg PO DAILY 90 days sacubitril-valsartan 24-26 mg (Entresto) 1 tab PO BID spironolactone 25 mg PO DAILY sucralfate (Carafate) 1 g PO BID trazodone 50 mg PO BEDTIME Tobacco use date assessed: 08/24/23 Fall risk assessment: No Falls in past year Last assessed Fall Risk: 08/24/23 Dental Screening Dental Screen Date: 08/24/23 Did you have a dental visit in the last 12 months?: Yes Did you have a dental problem in the last 6 months where you did not have access to dental care?: No Was dental information given to patient?: Patient has dentist HPI Discuss Labs ~[phone] HPI Details Patient was in emergency room 05 of August with chief complaint of anemia Patient had no active bleed, he was transfused 2 units with improved in h/h. He underwent EGD by Dr. Culp on 08/05/23 with findings of duodenitis, esophagitis andno active bleeding and the following plan High dose PPI BID for 3 months Carafate 1 g for 4 weeks restart plavix today and rivaroxiban tomorrow outpatient capsule endoscopy which is scheduled in few days We repeated labs again and his hemoglobin came back at 7.6 It was 8.3 on 05 of August when patient was released from hospital after getting 2 units of packed RBC 03 of August he was sent to emergency room when his hemoglobin came back at 6 He has no active source of bleeding that we can see Patient Sheryl self is feeling fine But he has not started iron supplement I have sent the script Patient was instructed to start taking that at least 2 times a day and if possible 3 times a day every 8 hours He will be repeating his labs again today if his hemoglobin went even further below then he will be going to emergency room for another transfusion Repeat labs Monday as well. He was scheduled to have cataract surgery in about 3 weeks, I think it will be best if we delay that surgery until patient is stabilized We will notify his machine overhauler. [facility] Medical History Heart failure with reduced ejection fraction Ischemic cardiomyopathy CAD (coronary artery disease) HTN (hypertension) Paroxysmal atrial fibrillation Diabetic nephropathy associated with type 2 diabetes mellitus Diabetes type 2, controlled Surgical History Stented coronary artery S/P CABG x 3 Family History Father CVD (cardiovascular disease) S/P triple vessel bypass Mother CVD (cardiovascular disease) Sudden cardiac Other Substance use disorder Social History Housing: Apartment Alcohol intake: current Alcohol intake frequency: 0-2 drinks per day Alcohol type: hard liquor Patient Tobacco Use Status: Former Tobacco user Tobacco use type: Cigarette Years Smoked: 20 years e-Cigarette/Vaping Use: Never Used service: No Current occupational status: retired Cognitive needs: No Hearing needs: No Vision needs: Yes Questionnaire Thrive Questionnaire Date Thrive assessed: 08/04/23 AUDIT C Alcohol Use Questionnaire (AUDIT-C) 1. How often do you have a drink containing alcohol?: 2-3 times a week 2. How many drinks containing alcohol do you have on a typical day when you are drinking?: 3 or 4 3. How often do you have six or more drinks on one occasion?: Never Total Score: 4 Score Reviewed/Action Taken: Yes YOANA-7 AMB Questionnaire YOANA-7 Date YOANA - 7 assessed: 03/08/22 Source: Developed by Drs. Asif Davis, Kaitlin Frias, Lucian Recinos and colleagues, with an educational yaritza from [employer]. Review of Systems Const Denies chills and Denies fever(s) ENT Denies epistaxis and Denies nasal discharge Card Denies chest pain Resp Denies chest congestion, Denies cough and Denies hemoptysis GI Denies diarrhea and Denies nausea Skin/Breast Denies rash Neuro Reports no additional complaints Psych Reports no additional complaints Endo Reports no additional complaints Physical exam (Primary Care) Tobacco/Smoking Status: Tobacco use Status Tobacco use date assessed 08/24/23 08/24/23 08:56 Patient Tobacco Use Status Former Tobacco user 08/24/23 08:56 Tobacco use type Cigarette 08/24/23 08:56 e-Cigarette/Vaping Use Never Used 08/24/23 08:56 Thrive Assessment: Date of Thrive Assessment Date Thrive assessed 08/04/23 08/24/23 08:56 Telehealth Telehealth Location of provider rendering services: practice address Location of patient: address on file Patient Identification confirmed using: Name, : Yes Telehealth method: voice only Patient verbally consented to treatment: Yes Patient verbally consented to billing insurance company: Yes Patient informed of any privacy concerns related to visit: Yes Assessment and Plan Assessment & Plan (1) Acute anemia: Code(s): D64.9 - Anemia, unspecified Plan Patient was in emergency room 05 of August with chief complaint of anemia Patient had no active bleed, he was transfused 2 units with improved in h/h. He underwent EGD by Dr. Culp on 08/05/23 with findings of duodenitis, esophagitis andno active bleeding and the following plan High dose PPI BID for 3 months Carafate 1 g for 4 weeks restart plavix today and rivaroxiban tomorrow outpatient capsule endoscopy which is scheduled in few days We repeated labs again and his hemoglobin came back at 7.6 It was 8.3 on 05 of August when patient was released from hospital after getting 2 units of packed RBC 03 of August he was sent to emergency room when his hemoglobin came back at 6 He has no active source of bleeding that we can see Patient M self is feeling fine But he has not started iron supplement I have sent the script Patient was instructed to start taking that at least 2 times a day and if possible 3 times a day every 8 hours He will be repeating his labs again today if his hemoglobin went even further below then he will be going to emergency room for another transfusion Repeat labs Monday as well. He was scheduled to have cataract surgery in about 3 weeks, I think it will be best if we delay that surgery until patient is stabilized We will notify his machine overhauler. Medications: New ferrous sulfate 324 mg PO BID 90 days 180 tabs 0RF ferrous sulfate 324 mg PO BID 90 days 180 tabs 0RF Coding Level of Care Code Tele Est Pt Level 4 (39563) Diagnoses Acute anemia D64.9 Time Spent (min) 40 Comment 5 min prep, 25 with patient, 5 charting, 5 orders
== END 2023-08-24 11:53 | disposition home or self-care (01) ==
LOC: HO.HMGC 07:37
PROVIDERS: PCP Internal Medicine; Visit Provider Internal Medicine
DX: D64.9 Anemia, unspecified (principal)
CPT/HCPCS: 99443

== ENCOUNTER 2023-08-25 08:52 | Outpatient (REF) | payer BC, MEDICARE, SELFPAY ==
[2023-08-25 11:34] LABS: MANUAL DIFF FLAG NO
[2023-08-25 12:02] LABS: Basophils Absolute Auto 0.1 X10*3/uL (0.0-0.2); Eosinophils Absolute Auto 0.2 X10*3/uL (0.0-0.4); Eosinophils Percent Auto 2.2 % (0-4); Hematocrit 27.2 % (42.0-52.0); Hemoglobin 7.8 g/dl (14.0-18.0); Imm Gran Abs Auto 0.02 X10*3/uL (0.00-0.03); Imm Gran Pct Auto 0.3 % (0.0-0.4); Lymphocytes Absolute Auto 0.9 X10*3/uL (1.2-4.9); Lymphocytes Percent Auto 13.2 % (20-40); Mean Corpuscular HGB Conc 28.7 g/dl (31.0-36.0); Mean Corpuscular Hemoglobin 22.9 pg (27.0-33.0); Mean Platelet Volume 10.8 fL (9.4-12.4); Monocytes Absolute Auto 0.7 X10*3/uL (0.1-1.2); Monocytes Percent Auto 9.6 % (2-11); Neutrophils Percent Auto 73.7 % (45-73); Platelet Count 319 X10*3/uL (160-400); Red Cell Distribution Width 17.4 % (11.0-16.0); White Blood Count 6.8 X10*3/uL (4.8-10.8)
[2023-08-25 12:41] LABS: Ferritin 12 ng/mL (20-250)
== END 2023-08-25 08:53 | disposition home or self-care (01) ==
LOC: HO.HMGCLDS 08:52
PROVIDERS: PCP Internal Medicine; Visit Provider Internal Medicine
DX: D64.9 Anemia, unspecified (principal)
CPT/HCPCS: 36415; 82728; 85025

== ENCOUNTER 2023-08-28 10:38 | Outpatient (REF) | payer BC, MEDICARE, SELFPAY ==
[2023-08-28 13:03] LABS: MANUAL DIFF FLAG NO
[2023-08-28 13:25] LABS: Basophils Absolute Auto 0.1 X10*3/uL (0.0-0.2); Basophils Percent Auto 1.1 % (0-2); Eosinophils Absolute Auto 0.2 X10*3/uL (0.0-0.4); Eosinophils Percent Auto 2.3 % (0-4); Hematocrit 27.3 % (42.0-52.0); Hemoglobin 7.8 g/dl (14.0-18.0); Imm Gran Abs Auto 0.02 X10*3/uL (0.00-0.03); Imm Gran Pct Auto 0.3 % (0.0-0.4); Lymphocytes Absolute Auto 1.3 X10*3/uL (1.2-4.9); Lymphocytes Percent Auto 17.1 % (20-40); Mean Corpuscular HGB Conc 28.6 g/dl (31.0-36.0); Mean Corpuscular Hemoglobin 22.6 pg (27.0-33.0); Mean Corpuscular Volume 79.1 fL (80.0-98.0); Mean Platelet Volume 10.4 fL (9.4-12.4); Monocytes Absolute Auto 0.9 X10*3/uL (0.1-1.2); Monocytes Percent Auto 12.2 % (2-11); Neutrophils Absolute Auto 4.9 x10*3/uL (2.0-8.3); Platelet Count 329 X10*3/uL (160-400); Red Blood Count 3.45 X10*6/uL (4.60-5.80); Red Cell Distribution Width 17.5 % (11.0-16.0); White Blood Count 7.4 X10*3/uL (4.8-10.8)
[2023-08-28 14:10] LABS: Ferritin 23 ng/mL (20-250)
== END 2023-08-28 10:39 | disposition home or self-care (01) ==
LOC: HO.HMGCLDS 10:38
PROVIDERS: PCP Internal Medicine; Visit Provider Internal Medicine
DX: D64.9 Anemia, unspecified (principal)
CPT/HCPCS: 36415; 82728; 85025

== ENCOUNTER 2023-08-31 13:22 | Outpatient (AMB) | payer BC, MEDICARE, SELFPAY ==
[2023-08-31 13:46] VITALS: BP 110/52; PULSE 73; BMI 30.1
--- NOTE | 2023-08-31 13:46 | A.OFFVIS_ITS ---
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 Allergies codeine [CODEINE] Allergy (Unknown, Verified 08/31/23 13:48) UNKNOWN Medication List - Last Reconciled 08/31/23 by FRAN Stovall atorvastatin 40 mg PO DAILY carvedilol 3.125 mg PO BID clopidogrel 75 mg PO DAILY cyanocobalamin (vitamin B-12) 1,000 mcg PO DAILY 90 days dapagliflozin propanediol (Farxiga) 10 mg PO DAILY dulaglutide (Trulicity) 3 mg subcut MO ferrous sulfate 324 mg PO BID 90 days ferrous sulfate 324 mg PO BID 90 days flash glucose sensor (Clever CloudStyle Sean 14 Day Sensor kit) every 14 days [freestyle sean reader As directed] furosemide 20 mg PO DAILY insulin glargine-yfgn (Semglee (insulin glargine-yfgn) Pen) 35 units subcut BEDTIME insulin lispro (Humalog KwikPen (U-100) Insulin) 15 units subcut BID metformin 1,000 mg PO BID omeprazole 40 mg PO BID rivaroxaban (Xarelto) 20 mg PO DAILY 90 days sacubitril-valsartan 24-26 mg (Entresto) 1 tab PO BID spironolactone 25 mg PO DAILY sucralfate (Carafate) 1 g PO BID trazodone 50 mg PO BEDTIME [facility] fu HPI Details Bean is a 68-year-old male past medical history of hypertension, hyperlipidemia, diabetes, CAD, three-vessel coronary artery bypass grafting 02/17/2023, ACS with graft failure, MIN to the LAD 04/22/2023, ischemic cardiomyopathy, heart failure with reduced EF, recent [facility] [place] with GI bleeding requiring 2 units of packed cells. An EGD showed duodenitis and esophagitis, no active bleeding. His anticoagulation was initially held then restarted. He now presents for follow-up. Today he reports that he is feeling weak and fatigued. He has shortness of breath with activity. He almost feels like he did when he was in the hospital recently. He has had blood counts checked 3 times recently and was told there stable. He is now taking iron pills he reports having some black stool. No nausea or vomiting of blood. No abdominal pain. He denies chest discomfort at rest or with activity. No PND, orthopnea or edema. No presyncope, syncope, falls. He is taking his Plavix and Xarelto as directed. He has a capsule study planned for 09/08/2023. [facility] Medical History (Updated 09/01/23 @ 11:07 by Jade Alonzo NP-C) Heart failure with reduced ejection fraction Ischemic cardiomyopathy CAD (coronary artery disease) HTN (hypertension) Paroxysmal atrial fibrillation Diabetic nephropathy associated with type 2 diabetes mellitus Diabetes type 2, controlled Surgical History (Updated 09/01/23 @ 11:15 by Jade Alonzo NP-C) Stented coronary artery S/P CABG x 3 Family History Father CVD (cardiovascular disease) S/P triple vessel bypass Mother CVD (cardiovascular disease) Sudden cardiac Other Substance use disorder Social History Housing: Apartment Alcohol intake: current Alcohol intake frequency: 0-2 drinks per day Alcohol type: hard liquor Patient Tobacco Use Status: Former Tobacco user Tobacco use type: Cigarette Years Smoked: 20 years e-Cigarette/Vaping Use: Never Used service: No Current occupational status: retired Cognitive needs: No Hearing needs: No Vision needs: Yes Review of Systems Const All systems reviewed & are unremarkable except as noted in HPI and below Reports fatigue and Reports weakness ENT Denies dizziness Card Denies chest pain, Denies chest pain at rest, Denies chest pain with activity, Denies rapid heart rate, Denies pedal edema, Denies edema, Denies leg edema, Denies lightheadedness, Denies palpitations, Reports dyspnea, Reports dyspnea on exertion and Denies orthopnea Resp Denies cough, Reports dyspnea and Reports dyspnea on exertion GI Denies hematochezia and Denies change in stool character Musc Denies abnormal gait, Denies limited range of motion, Denies muscle cramps, Denies muscle weakness, Denies numbness, Denies radiating pain into limb, Denies stiffness and Denies tingling Neuro Denies abnormal gait, Denies dizziness, Denies numbness, Denies tingling and Reports weakness Endo Reports fatigue and Denies palpitations Physical Exam Vital Signs: Last Vital Signs Pulse 73 08/31/23 13:46 BP 110/52 L 08/31/23 13:46 BMI result Body Mass Index 30.1 Const General: cooperative, healthy appearing, comfortable and no acute distress Orientation/consciousness: patient oriented x3 Neck Neck: Yes normal visual inspection and Yes no JVD Resp Effort & Inspection: normal respiratory effort Auscultation: clear to auscultation bilaterally, no crackles, no rales, no rhonchi and no wheezes Cardio Jugular venous distension: no JVD Rate: regular rate Rhythm: regular rhythm Heart sounds: S1 normal heart sound present, S2 normal heart sound present, no murmurs and no rubs Skin Other: pale skin color Neuro General: patient oriented x3 Extrem General: Yes normal to inspection, No no pedal edema and No calf tenderness Psych Appearance: grossly normal Mental Status: mental status grossly normal Speech and movement: Normal speech and movement present Assessment & Plan Assessment & Plan (1) Acute anemia: Code(s): D64.9 - Anemia, unspecified Plan: Recent [facility] admission for significant anemia. Hemoglobin went as low as 6. Symptoms of shortness of breath and fatigue. Stools black and tested heme positive. He did require 2 units of packed cells. Evaluated by GI. EGD done showing duodenitis, esophagitis, no active bleeding. He was started on PPI and restarted back on anticoagulation, Plavix and Xarelto. Labs done since his hospital discharge showed hemoglobin 7.6 on 08/22/23, hemoglobin 7.8 on 08/25/2023, hemoglobin 7.8 on 08/28/2023. Today he reports having shortness of breath and weakness. He states it is almost as bad as when he went into the hospital. He reports having some black stools but no shelly blood. He is taking iron at present. He continues on anticoagulation and has a capsule study scheduled with GI on 09/08/2023. Will need to have him continue Plavix uninterr upted. It has been 5 months since his coronary stent placement. Holding Plavix would increase the risk of stent thrombosis. Chads Vasc score of 5. He is at risk for stroke with holding of Xarelto however he has signs of active bleeding at present. Reviewed the risk of stroke with him, signs and symptoms of stroke reviewed. Will reach out to Dr. Culp to see if capsule study can be completed any sooner than 09/08/2023. Patient should resume Xarelto as soon as cleared by GI to do so. Will enter a CBC into the computer system. Instructed to obtain if he notices any active bleeding or increasing shortness of breath and weakness. He has cardiology follow-up in September. Will keep that appointment at this time. (2) GI bleed: Code(s): K92.2 - Gastrointestinal hemorrhage, unspecified Qualifiers: GI bleed type/associated pathology: melena Qualified Code(s): K92.1 - Melena Plan: As above (3) Paroxysmal atrial fibrillation: Code(s): I48.0 - Paroxysmal atrial fibrillation Plan: History of paroxysmal atrial fibrillation. Last EKG from 08/03/2023 shows sinus rhythm, rate 75. He denies having any heart palpitations. He is on carvedilol for rate control. Is on Xarelto for anticoagulation. CHADS-VASc score 5. Due to active GI bleeding will need to hold Xarelto at present. (4) CAD (coronary artery disease): Code(s): I25.10 - Atherosclerotic heart disease of [place] coronary artery without angina pectoris Qualifiers: Associated angina: with stable angina Coronary Disease-Associated Artery/Lesion type: [place] artery [place] vs. transplanted heart: [place] heart Qualified Code(s): I25.118 - Atherosclerotic heart disease of [place] coronary artery with other forms of angina pectoris Plan: History of CAD. Cardiac catheterization done 02/09/2023 showing significant three-vessel CAD. He then had three-vessel coronary artery bypass grafting on 02/17/2023 with SVG to LAD, SVG to OM and right PDA. He then presented to [facility] with increased shortness of breath, Congestive heart failure, ruled in for ACS. Cardiac catheterization 03/2023 with SVG graft to LAD failure, MIN placed to the [place] LAD. He initially was on aspirin, Plavix and Xarelto. Aspirin was then stopped and he was continued on Plavix and Xarelto. He has not had any chest discomfort. He does have shortness of breath which can be related to his anemia. Last echocardiogram in our system 05/30/2023 shows EF 60-65%, basal inferior hypokinetic. Continue on current med management with Plavix, atorvastatin, carvedilol, Entresto, Aldactone. (5) Stented coronary artery: Comment: MIN to [place] LM to LAD for SVG graft failure, 03/2023 Code(s): Z95.5 - Presence of coronary angioplasty implant and graft Plan: As above (6) Ischemic cardiomyopathy: Code(s): I25.5 - Ischemic cardiomyopathy Plan: EF had been reduced however normalized on last echo. Continue carvedilol and Entresto for neurohormonal modulation. He does not appear in acute heart failure on examination today. Continue Lasix and Aldactone. (7) Heart failure with reduced ejection fraction: Code(s): I50.20 - Unspecified systolic (congestive) heart failure Plan: Stable as above (8) Hospital discharge follow-up: Code(s): Z09 - Encounter for follow-up examination after completed treatment for conditions other than malignant neoplasm Plan: As above (9) S/P CABG x 3: Comment: rSVG to LAD, OM and RCA, 02/17/2023 Code(s): Z95.1 - Presence of aortocoronary bypass graft Plan: As above Plan Time spent on chart review, documentation, interview and assessment Orders: Orders Complete Blood Count no Diff 08/31/23 D64.9 - Anemia, unspecified Coding Level of Care Code Est Pt Level 4 (97118) Diagnoses Acute anemia D64.9 Gastrointestinal hemorrhage with melena K92.1 GI bleed type/associated pathology: melena Paroxysmal atrial fibrillation I48.0 Coronary artery disease of [place] artery of [place] heart with stable angina pectoris I25.118 Associated angina: with stable angina Coronary Disease-Associated Artery/Lesion type: [place] artery [place] vs. transplanted heart: [place] heart Stented coronary artery Z95.5 Ischemic cardiomyopathy I25.5 Heart failure with reduced ejection fraction I50.20 Hospital discharge follow-up Z09 S/P CABG x 3 Z95.1 Time Spent (min) 30
== END 2023-08-31 14:33 | disposition home or self-care (01) ==
PROVIDERS: PCP Internal Medicine; Visit Provider Nurse Practitioner Family
DX: D64.9 Anemia, unspecified (principal); K92.1 Melena; I48.0 Paroxysmal atrial fibrillation; I25.118 Atherosclerotic heart disease of native coronary artery with other forms of angina pectoris; Z95.5 Presence of coronary angioplasty implant and graft; I25.5 Ischemic cardiomyopathy; I50.20 Unspecified systolic (congestive) heart failure; Z09 Encounter for follow-up examination after completed treatment for conditions other than malignant neoplasm; Z95.1 Presence of aortocoronary bypass graft
CPT/HCPCS: 99214

== ENCOUNTER → 2023-08-31 13:22 | Outpatient (BNVA) | payer BC, MEDICARE, SELFPAY | PROVIDERS: PCP Internal Medicine; Visit Provider Nurse Practitioner Family ==

== ENCOUNTER 2023-09-08 08:33 | Outpatient (AMB) | payer BC, MEDICARE, SELFPAY ==
--- NOTE | 2023-09-11 13:18 | A.OFFVIS_ITS ---
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 Allergies codeine [CODEINE] Allergy (Unknown, Verified 08/31/23 13:48) UNKNOWN [facility] Medical History (Updated 09/01/23 @ 11:07 by FRAN Stovall) Heart failure with reduced ejection fraction Ischemic cardiomyopathy CAD (coronary artery disease) HTN (hypertension) Paroxysmal atrial fibrillation Diabetic nephropathy associated with type 2 diabetes mellitus Diabetes type 2, controlled Surgical History (Updated 09/01/23 @ 11:15 by FRAN Stovall) Stented coronary artery S/P CABG x 3 Family History Father CVD (cardiovascular disease) S/P triple vessel bypass Mother CVD (cardiovascular disease) Sudden cardiac Other Substance use disorder Social History Housing: Apartment Alcohol intake: current Alcohol intake frequency: 0-2 drinks per day Alcohol type: hard liquor Patient Tobacco Use Status: Former Tobacco user Tobacco use type: Cigarette Years Smoked: 20 years e-Cigarette/Vaping Use: Never Used service: No Current occupational status: retired Cognitive needs: No Hearing needs: No Vision needs: Yes Office Procedures AMB Capsule Endoscopy Procedure Notes: Capsule endoscopy date of service: 09/08/23 Indication: anemia Findings: Stomach mucosa slightly granular, rapid transit to the duodenum reached at 13 mins. Small bowel appeared normal with no bleeding or masses noted. Cecum was not reached. Some lymphoid follicles noted probably indicating the capsule was close to the TI Conclusion: Mild gastritis no active bleeding I called patient, he has no overt bleeding, will get UA. i did advise a repeat colonoscopy which he will consider. Capsule Endoscopy CPT Code: 33070 - Capsule Endoscopy Assessment & Plan Assessment & Plan (1) Anemia: Code(s): D64.9 - Anemia, unspecified Qualifiers: Anemia type: iron deficiency Iron deficiency anemia type: chronic blood loss Qualified Code(s): D50.0 - Iron deficiency anemia secondary to blood loss (chronic) Plan: see note Orders: Orders UA CC w/rflx Micro + Cult Today R30.0 - Dysuria Ferritin Today D64.9 - Anemia, unspecified, Z95.1 - Presence of aortocoronary bypass graft Coding Level of Care Code Procedure Only Diagnoses Iron deficiency anemia due to chronic blood loss D50.0 Anemia type: iron deficiency Iron deficiency anemia type: chronic blood loss CPT Codes AMB Capsule Endoscopy - Capsule Endoscopy CPT Code: 38730 - Capsule Endoscopy ([id number])
== END 2023-09-08 08:46 | disposition home or self-care (01) ==
PROVIDERS: PCP Internal Medicine; Visit Provider Internal Medicine Gastroenterology
DX: D50.0 Iron deficiency anemia secondary to blood loss (chronic) (principal); K29.70 Gastritis, unspecified, without bleeding
CPT/HCPCS: 91110

== ENCOUNTER → 2023-09-08 08:33 | Outpatient (BNVA) | payer BC, MEDICARE, SELFPAY | PROVIDERS: PCP Internal Medicine; Visit Provider Internal Medicine Gastroenterology | DX: D50.0 Iron deficiency anemia secondary to blood loss (chronic) (principal) | CPT/HCPCS: 91110 ==

== ENCOUNTER 2023-09-11 10:59 | Outpatient (REF) | payer BC, MEDICARE, SELFPAY ==
[2023-09-11 13:16] LABS: Appearance Urine Clear; Color Urine Yellow; Glucose Urine UA >=1000 mg/dL (Negative); Leukocyte Esterase Urine Negative (Negative); Nitrite Urine Negative (Negative); UMIC TRIGGER UACC YES; Urine Blood Negative (Negative); Urine Ketones Negative (Negative); Urine Protein Negative (Neg-Trace)
[2023-09-11 13:19] LABS: Bacteria Urine None Seen (None Seen); Hyaline Casts Urine 0-2 /LPF (0-2); RBC Urine 0-2 /HPF (0-2); Squamous Epithelial Cell Urine 0-2 /HPF (0-2); WBC Urine 0-5 /HPF (0-5)
[2023-09-11 13:27] LABS: MANUAL DIFF FLAG NO
[2023-09-11 13:37] LABS: Basophils Absolute Auto 0.1 X10*3/uL (0.0-0.2); Basophils Percent Auto 1.1 % (0-2); Eosinophils Absolute Auto 0.3 X10*3/uL (0.0-0.4); Eosinophils Percent Auto 4.1 % (0-4); Hematocrit 29.6 % (42.0-52.0); Hemoglobin 8.4 g/dl (14.0-18.0); Imm Gran Abs Auto 0.02 X10*3/uL (0.00-0.03); Imm Gran Pct Auto 0.3 % (0.0-0.4); Lymphocytes Absolute Auto 1.2 X10*3/uL (1.2-4.9); Lymphocytes Percent Auto 17.7 % (20-40); Mean Corpuscular HGB Conc 28.4 g/dl (31.0-36.0); Mean Corpuscular Hemoglobin 22.6 pg (27.0-33.0); Mean Corpuscular Volume 79.8 fL (80.0-98.0); Mean Platelet Volume 10.8 fL (9.4-12.4); Monocytes Absolute Auto 0.7 X10*3/uL (0.1-1.2); Monocytes Percent Auto 10.3 % (2-11); Neutrophils Absolute Auto 4.4 x10*3/uL (2.0-8.3); Neutrophils Percent Auto 66.5 % (45-73); Platelet Count 299 X10*3/uL (160-400); Red Blood Count 3.71 X10*6/uL (4.60-5.80); Red Cell Distribution Width 17.8 % (11.0-16.0); White Blood Count 6.6 X10*3/uL (4.8-10.8)
[2023-09-11 14:04] LABS: Ferritin 29 ng/mL (20-250)
[2023-09-11 14:18] LABS: Anion Gap 13 (12-20); Blood Urea Nitrogen 24 mg/dL (9-16); Calcium 8.9 mg/dL (8.4-10.2); Carbon Dioxide 25 mmol/L (22-29); Chloride 100 mmol/L (96-108); Estimated Glomerular Filt Rate 41; Glucose Random 371 mg/dL (60-115); Potassium 4.8 mmol/L (3.3-5.1); Sodium 133 mmol/L (135-145)
== END 2023-09-11 11:00 | disposition home or self-care (01) ==
LOC: HO.HMGCLDS 10:59
PROVIDERS: Internal Medicine Gastroenterology; PCP Internal Medicine; Referring Provider Dentist Pediatric Dentistry; Visit Provider Internal Medicine
DX: D50.0 Iron deficiency anemia secondary to blood loss (chronic) (principal); I50.9 Heart failure, unspecified; Z95.1 Presence of aortocoronary bypass graft
CPT/HCPCS: 36415; 80048; 81001; 82728; 85025

== ENCOUNTER 2023-09-18 10:49 | Outpatient (REF) | payer BC, MEDICARE, SELFPAY ==
[2023-09-18 13:48] LABS: Hematocrit 32.5 % (42.0-52.0); Hemoglobin 9.2 g/dl (14.0-18.0); Mean Corpuscular HGB Conc 28.3 g/dl (31.0-36.0); Mean Corpuscular Hemoglobin 23.5 pg (27.0-33.0); Mean Corpuscular Volume 83.1 fL (80.0-98.0); Mean Platelet Volume 10.8 fL (9.4-12.4); Platelet Count 248 X10*3/uL (160-400); Red Blood Count 3.91 X10*6/uL (4.60-5.80); Red Cell Distribution Width 21.2 % (11.0-16.0); White Blood Count 6.6 X10*3/uL (4.8-10.8)
[2023-09-18 14:08] LABS: Anion Gap 14 (12-20); Blood Urea Nitrogen 13 mg/dL (9-16); Calcium 8.7 mg/dL (8.4-10.2); Carbon Dioxide 22 mmol/L (22-29); Chloride 104 mmol/L (96-108); Estimated Glomerular Filt Rate 47; Glucose Random 283 mg/dL (60-115); Potassium 5.1 mmol/L (3.3-5.1); Sodium 135 mmol/L (135-145)
[2023-09-18 14:20] LABS: Ferritin 95 ng/mL (20-250)
== END 2023-09-18 10:50 | disposition home or self-care (01) ==
LOC: HO.HMGCLDS 10:49
PROVIDERS: Internal Medicine; PCP Internal Medicine; Visit Provider Nurse Practitioner Family
DX: D50.0 Iron deficiency anemia secondary to blood loss (chronic) (principal); I50.20 Unspecified systolic (congestive) heart failure; I25.5 Ischemic cardiomyopathy
CPT/HCPCS: 36415; 80048; 82728; 85027

== ENCOUNTER 2023-10-13 09:17 | Outpatient (REF) | payer BC, MEDICARE, SELFPAY ==
[2023-10-13 10:39] LABS: Hemoglobin 12.6 g/dl (14.0-18.0); Mean Corpuscular Hemoglobin 27.5 pg (27.0-33.0); Mean Corpuscular Volume 91.5 fL (80.0-98.0); Mean Platelet Volume 10.3 fL (9.4-12.4); Platelet Count 205 X10*3/uL (160-400); Red Blood Count 4.59 X10*6/uL (4.60-5.80); White Blood Count 5.6 X10*3/uL (4.8-10.8)
[2023-10-13 11:31] LABS: Band Neutrophils Percent 1 % (3-5); Eosinophils Absolute Manual 0.3 X10*3/uL (0.0-0.4); Eosinophils Percent Manual 6 % (0-4); Lymphocytes Absolute Manual 0.4 X10*3/uL (1.2-4.9); Lymphocytes Percent Manual 8 % (20-40); Monocytes Absolute Manual 0.5 X10*3/uL (0.1-1.2); Monocytes Percent Manual 9 % (2-11); Neutrophils Absolute Manual 4.3 X10*3/uL (2.0-8.3); Neutrophils Percent Manual 76 % (45-73)
[2023-10-13 11:33] LABS: Burr Cells 1+ (0-2) /OIF; Macrocytosis 1+ (5-14) /OIF; Microcytosis 1+ (5-14) /OIF; RBC Morphology NOTED
[2023-10-13 11:34] LABS: Hypochromasia 1+ (5-14) /OIF; Platelet Estimate NORMAL (NORMAL); Platelet Morphology Comment NORMAL
[2023-10-13 11:35] LABS: B Type Natriuretic Peptide 157 pg/mL (<100)
== END 2023-10-13 09:18 | disposition home or self-care (01) ==
LOC: HO.HMGCLDS 09:17
PROVIDERS: PCP Internal Medicine; Visit Provider Internal Medicine Cardiovascular Disease
DX: E53.8 Deficiency of other specified B group vitamins (principal); I25.118 Atherosclerotic heart disease of native coronary artery with other forms of angina pectoris; M25.511 Pain in right shoulder; G89.29 Other chronic pain; D64.9 Anemia, unspecified
CPT/HCPCS: 36415; 83880; 85007; 85027

== ENCOUNTER 2023-10-16 08:37 | Outpatient (AMB) | payer BC, MEDICARE, SELFPAY ==
--- NOTE | 2023-10-16 09:00 | A.OFFVIS_ITS ---
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 Allergies codeine [CODEINE] Allergy (Unknown, Verified 08/31/23 13:48) UNKNOWN Medication List - Last Reconciled 10/16/23 by Fabrice Akhtar MD atorvastatin 40 mg PO DAILY carvedilol 3.125 mg PO BID clopidogrel 75 mg PO DAILY cyanocobalamin (vitamin B-12) 1,000 mcg PO DAILY 90 days dapagliflozin propanediol (Farxiga) 10 mg PO DAILY dulaglutide (Trulicity) 3 mg subcut MO ferrous sulfate 324 mg PO BID 90 days flash glucose sensor (TelovationsStyle Sean 14 Day Sensor kit) every 14 days [Funderastyle sean reader As directed] insulin glargine-yfgn (Semglee (insulin glargine-yfgn) Pen) 35 units subcut BEDTIME insulin lispro (Humalog KwikPen (U-100) Insulin) 15 units subcut BID metformin 1,000 mg PO BID omeprazole 40 mg PO BID rivaroxaban (Xarelto) 20 mg PO DAILY 90 days sacubitril-valsartan 24-26 mg (Entresto) 1 tab PO BID spironolactone 25 mg PO DAILY sucralfate (Carafate) 1 g PO BID trazodone 50 mg PO BEDTIME HPI HPI Comments History of Present Illness Details Bean comes for follow-up. He said he feels really well at current time. He said his pain in his legs as well as his shortness of breath or back to normal. He is able to do activity at home without restriction. He denies any exertional chest pain. Denies orthopnea, PND, leg edema. Denies any episodes of irregular heartbeat or rapid heart rate. No bleeding issues or neurologic events. Taking all his medications regularly. Last echocardiogram at shown normalized LV ejection fraction 60-65%. [facility] Medical History Heart failure with reduced ejection fraction Ischemic cardiomyopathy CAD (coronary artery disease) HTN (hypertension) Paroxysmal atrial fibrillation Diabetic nephropathy associated with type 2 diabetes mellitus Diabetes type 2, controlled Surgical History Stented coronary artery S/P CABG x 3 Family History Father CVD (cardiovascular disease) S/P triple vessel bypass Mother CVD (cardiovascular disease) Sudden cardiac Other Substance use disorder Social History Housing: Apartment Alcohol intake: current Alcohol intake frequency: 0-2 drinks per day Alcohol type: hard liquor Patient Tobacco Use Status: Former Tobacco user Tobacco use type: Cigarette Years Smoked: 20 years e-Cigarette/Vaping Use: Never Used service: No Current occupational status: retired Cognitive needs: No Hearing needs: No Vision needs: Yes Review of Systems Const Denies chills, Denies fatigue, Denies fever(s), Denies frequent falls, Denies weakness, Denies weight gain and Denies weight loss ENT Denies dizziness Card Denies chest pain, Denies leg edema, Denies lightheadedness, Denies palpitations, Denies dyspnea, Denies dyspnea on exertion, Denies orthopnea and Denies other (loss of consciousness) Resp Denies cough, Denies dyspnea and Denies dyspnea on exertion GI Denies hematochezia and Denies change in stool character Musc Denies abnormal gait, Denies muscle weakness, Denies numbness, Denies radiating pain into limb and Denies tingling Neuro Denies abnormal gait, Denies dizziness, Denies frequent falls, Denies numbness, Denies tingling and Denies weakness Endo Denies fatigue and Denies palpitations Physical Exam Vital Signs: Last Vital Signs Pulse 68 10/16/23 09:01 BP 120/74 10/16/23 09:01 BMI result Body Mass Index 29.8 Const General: cooperative, healthy appearing, comfortable and no acute distress Orientation/consciousness: patient oriented x3 Neck Neck: Yes normal visual inspection and Yes no JVD Resp Effort & Inspection: normal respiratory effort Auscultation: clear to auscultation bilaterally, no crackles, no rales, no rhonchi and no wheezes Cardio Jugular venous distension: no JVD Rate: regular rate Rhythm: regular rhythm Heart sounds: S1 normal heart sound present, S2 normal heart sound present, no murmurs and no rubs Skin Other: pale skin color Neuro General: patient oriented x3 Extrem General: Yes normal to inspection, No no pedal edema and No calf tenderness Psych Appearance: grossly normal Mental Status: mental status grossly normal Speech and movement: Normal speech and movement present Assessment & Plan Assessment & Plan (1) CAD (coronary artery disease): Code(s): I25.10 - Atherosclerotic heart disease of [place] coronary artery without angina pectoris Qualifiers: Coronary Disease-Associated Artery/Lesion type: [place] artery [place] vs. transplanted heart: [place] heart Associated angina: with stable angina Qualified Code(s): I25.118 - Atherosclerotic heart disease of [place] coronary artery with other forms of angina pectoris Plan: CAD status post triple-vessel coronary artery bypass grafting with failed graft status post stenting. Patient doing extremely well at this point time. Continue clopidogrel therapy for total of 1 year since stenting. Continue aggressive risk factor modification. Blood pressure is well optimized. Continue high-intensity statin therapy. Continue aggressive management diabetes goal hemoglobin A1c less than 7%. Goal LDL less than 60 mg/dL. Blood pressure is currently well optimized encouraged to continue to participate in physical activity as tolerated. (2) Heart failure with reduced ejection fraction: Code(s): I50.20 - Unspecified systolic (congestive) heart failure Plan: Prior history of heart failure with reduced ejection fraction secondary to coronary artery disease and ischemic cardiomyopathy. LV systolic function is normalized since revascularization with current neurohormonal modulation. Continue the same including Entresto, carvedilol, dapagliflozin as well as spironolactone. His recent symptoms of heart failure were related to severe anemia related GI bleed. Advise complete cessation of alcohol use. Advised to maintain hematocrit and continue iron therapy. Continue monitor CBC regularly. Advised to call me with any worsening symptoms. Continue daily weight monitoring avoidance of salt loading. (3) Paroxysmal atrial fibrillation: Code(s): I48.0 - Paroxysmal atrial fibrillation Plan: Paroxysmal atrial fibrillation which has remained suppressed. Has done well with rhythm control approach will continue pursue rhythm control approach. Currently on full oral anticoagulation Xarelto. Continue quarterly renal function test and CBC. If he develops recurrent GI bleeding that is life- threatening and/or not treatable, could pursue Watchman device placement. Follow up in the clinic in 6 months time, sooner p.r.n.. Thank you for allowing me to partake in his care Coding Level of Care Code Est Pt Level 4 (04228) Diagnoses Coronary artery disease of [place] artery of [place] heart with stable angina pectoris I25.118 Coronary Disease-Associated Artery/Lesion type: [place] artery [place] vs. transplanted heart: [place] heart Associated angina: with stable angina Heart failure with reduced ejection fraction I50.20 Paroxysmal atrial fibrillation I48.0
[2023-10-16 09:01] VITALS: BP 120/74; PULSE 68; BMI 29.8
== END 2023-10-16 09:25 | disposition home or self-care (01) ==
PROVIDERS: Visit Provider Internal Medicine Cardiovascular Disease
DX: I25.118 Atherosclerotic heart disease of native coronary artery with other forms of angina pectoris (principal); I50.20 Unspecified systolic (congestive) heart failure; I48.0 Paroxysmal atrial fibrillation
CPT/HCPCS: 99214

== ENCOUNTER → 2023-10-16 08:37 | Outpatient (BNVA) | payer BC, MEDICARE, SELFPAY | PROVIDERS: Visit Provider Internal Medicine Cardiovascular Disease | DX: I25.118 Atherosclerotic heart disease of native coronary artery with other forms of angina pectoris (principal); I48.0 Paroxysmal atrial fibrillation; I50.20 Unspecified systolic (congestive) heart failure | CPT/HCPCS: 99212 ==

== ENCOUNTER 2023-11-21 09:32 | Outpatient (AMB) | payer BC, MEDICARE, SELFPAY ==
[2023-11-21 09:37] VITALS: BP 136/68; PULSE 70; O2SAT 97; BMI 30.8
--- NOTE | 2023-11-21 09:37 | MHC.PC.OV ---
Vital Signs 11/21/23 09:37 Height 5 ft 8 in Weight 202 lb 8 oz BMI 30.8 BP 136/68 Blood Pressure Location Rt brachial Position Sitting Pulse 70 Pulse Source Pulse Oximeter Pulse Oximetry (%) 97 Oxygen Delivery Method Room Air Intake Visit Reasons: 3 month follow up Allergies codeine [CODEINE] Allergy (Unknown, Verified 11/21/23 09:39) UNKNOWN Medication List - Last Reconciled 11/21/23 by Yg Levi MD atorvastatin 40 mg PO DAILY carvedilol 3.125 mg PO BID clopidogrel 75 mg PO DAILY cyanocobalamin (vitamin B-12) 1,000 mcg PO DAILY 90 days dapagliflozin propanediol (Farxiga) 10 mg PO DAILY dulaglutide (Trulicity) 3 mg subcut MO ferrous sulfate 324 mg PO BID 90 days flash glucose sensor ([employer] Sean 14 Day Sensor kit) every 14 days [[employer]style sean reader As directed] insulin glargine-yfgn (Semglee (insulin glargine-yfgn) Pen) 35 units subcut BEDTIME insulin lispro (Humalog KwikPen (U-100) Insulin) 15 units subcut BID metformin 1,000 mg PO BID omeprazole 40 mg PO BID rivaroxaban (Xarelto) 20 mg PO DAILY 90 days sacubitril-valsartan 24-26 mg (Entresto) 1 tab PO BID spironolactone 25 mg PO DAILY sucralfate (Carafate) 1 g PO BID trazodone 50 mg PO BEDTIME Tobacco use date assessed: 11/21/23 Fall risk assessment: No Falls in past year Last assessed Fall Risk: 11/21/23 Dental Screening Dental Screen Date: 11/21/23 Did you have a dental visit in the last 12 months?: No Did you have a dental problem in the last 6 months where you did not have access to dental care?: No Was dental information given to patient?: No HPI 3 month follow up HPI Details Patient is 68-year-old gentleman came in for his regular follow-up appointment His anemia has improved he is on iron supplement as well as B12 supplement Hemoglobin is 12.6 it was checked September of this year it was previously 9.2 Patient says that he feels much better Patient have stented coronary artery as well as paroxysmal atrial fibrillation he is on 2 blood thinners Plavix and Xarelto through Cardiology Diabetes mellitus: His hemoglobin A1c 7.3 today He is waiting to see the film library clerk and has appointment in March Currently patient is on Trulicity 3 mg Farxiga Long-acting insulin 35 units at night His creatinine is 1.45 and it fluctuates lately up and then back down I am stopping his metformin GERD is stable with Carafate and omeprazole Difficulty sleeping at night: Patient is on trazodone 50 mg which is helping him Continue atorvastatin 40 mg and carvedilol that is through Cardiology Blood pressure management through Cardiology office blood pressure is stable [facility] Medical History Heart failure with reduced ejection fraction Ischemic cardiomyopathy CAD (coronary artery disease) HTN (hypertension) Paroxysmal atrial fibrillation Diabetic nephropathy associated with type 2 diabetes mellitus Diabetes type 2, controlled Surgical History Stented coronary artery S/P CABG x 3 Family History Father CVD (cardiovascular disease) S/P triple vessel bypass Mother CVD (cardiovascular disease) Sudden cardiac Other Substance use disorder Social History Housing: Apartment Alcohol intake: current Alcohol intake frequency: 0-2 drinks per day Alcohol type: hard liquor Patient Tobacco Use Status: Former Tobacco user Tobacco use type: Cigarette Years Smoked: 20 years e-Cigarette/Vaping Use: Never Used service: No Current occupational status: retired Cognitive needs: No Hearing needs: No Vision needs: Yes Questionnaire PHQ-9 Over the last 2 weeks, how often have you been bothered by any of the following problems? 1. Little interest or pleasure in doing things: several days 2. Feeling down, depressed, or hopeless: not at all 3. Trouble falling or staying asleep, or sleeping too much: not at all 4. Feeling tired or having little energy: not at all 5. Poor appetite or overeating: not at all 6. Feeling bad about yourself - or that you are a failure or have let yourself or your family down: not at all 7. Trouble concentrating on things, such as reading the newspaper or watching television: not at all 8. Moving or speaking so slowly that other people could have noticed. Or the opposite - being so fidgety or restless that you have been moving around a lot more than usual: not at all 9. Thoughts that you would be better off or of hurting yourself in some way: not at all Total score: 1 Depression Screening Interpretation: Negative Depression Screening Done: Yes 72021 - PHQ-9 Billing: Yes Source: Developed by Drs. Asif Davis, Kaitlin Frias, Lucian Recinos and colleagues, with an educational yaritza from [employer]. Thrive Questionnaire Date Thrive assessed: 11/21/23 I am a: Patient What is your living situation today?: I have a steady place to live Within the past 12 months, did the food you bought not last and you didn't have the money to get more?: Never true Within the past 12 months, did you worry whether your food would run out before you got money to buy more?: Never true Do you have trouble paying for medicines?: No Do you have trouble getting transportation to medical appointments?: No Do you have trouble paying your heating and electricity bill?: No Do you have trouble taking care of your child, family member or friend?: No Do you have trouble with day-to-day activities such as bathing, preparing meals, shopping, managing finances, etc.?: No Are you currently unemployed and looking for a job?: No Are you interested in more education?: No Please select the resources that you would like help with: None Currently or been in a relationship where the following occur: no concerns reported THRIVE Score: 0 AUDIT C Alcohol Use Questionnaire (AUDIT-C) 1. How often do you have a drink containing alcohol?: Never 3. How often do you have six or more drinks on one occasion?: Never Total Score: 0 Score Reviewed/Action Taken: Yes YOANA-7 AMB Questionnaire YOANA-7 Date YOANA - 7 assessed: 11/21/23 Feeling nervous, anxious, or on edge: 0 = Not at all Not being able to stop or control worryin = Not at all Worrying too much about different things: 0 = Not at all Trouble relaxin = Not at all Being so restless that it is hard to sit still: 0 = Not at all Becoming easily annoyed or irritable: 0 = Not at all Feeling afraid as if something awful might happen: 0 = Not at all Total YOANA-7 score (0-4 normal; 5-9 mild; 10-14 moderate; 15-21 severe): 0 Source: Developed by Drs. Asif Davis, Kaitlin Frias, Lucian Recinos and colleagues, with an educational yaritza from [employer]. YOANA-7 Assessment Billing YOANA-7 Assessment Tool: YOANA-7 Assessment 93373 Review of Systems Const Denies chills and Denies fever(s) ENT Denies epistaxis and Denies nasal discharge Card Denies chest pain Resp Denies chest congestion, Denies cough and Denies hemoptysis GI Denies diarrhea and Denies nausea Skin/Breast Denies rash Neuro Reports no additional complaints Psych Reports no additional complaints Endo Reports no additional complaints Physical exam (Primary Care) Vital Signs: Last Vital Signs Pulse 70 11/21/23 09:37 BP 136/68 11/21/23 09:37 Pulse Ox 97 11/21/23 09:37 Oxygen Delivery Method Room Air 11/21/23 09:37 BMI result Body Mass Index 30.8 Tobacco/Smoking Status: Tobacco use Status Tobacco use date assessed 11/21/23 11/21/23 09:39 Patient Tobacco Use Status Former Tobacco user 11/21/23 09:39 Tobacco use type Cigarette 11/21/23 09:39 e-Cigarette/Vaping Use Never Used 11/21/23 09:39 PHQ-9: PHQ-9 Score PHQ-9: Total score 1 11/21/23 09:56 Depression Screening Interpretation: Negative Thrive Assessment: Date of Thrive Assessment Date Thrive assessed 11/21/23 11/21/23 09:53 Currently or been in a relationship where the following occur: no concerns reported Const General: cooperative, comfortable and no acute distress Orientation/consciousness: patient oriented x3 HENMT Head: Yes normocephalic Eyes General: appearance normal, both eyes and all related structures Neck Neck: Yes supple Resp Effort & Inspection: normal respiratory effort, no cough and no stridor Cardio Heart sounds: S1 normal heart sound present and S2 normal heart sound present Skin General skin exam: turgor normal Neuro General: patient oriented x3, tone normal and moves all extremities Extrem Right lower extremity: no edema Left lower extremity: no edema Results AMB Hemoglobin A1c AMB Hemoglobin A1c 7.8 % Last Edit by Alejandro Goodrich MA on 11/21/23 09:51 Results Reviewed Results Reviewed: Laboratory Last Values Hgb A1c (Clinic) 7.8 % (4.0-6.0) H 11/21/23 09:51 Assessment and Plan Assessment & Plan (1) Anemia: Code(s): D64.9 - Anemia, unspecified Qualifiers: Anemia type: iron deficiency Iron deficiency anemia type: chronic blood loss Qualified Code(s): D50.0 - Iron deficiency anemia secondary to blood loss (chronic) (2) Diabetic neuropathy: Code(s): E11.40 - Type 2 diabetes mellitus with diabetic neuropathy, unspecified Qualifiers: Diabetes mellitus complication detail: diabetic autonomic neuropathy Diabetes mellitus type: type 2 Qualified Code(s): E11.43 - Type 2 diabetes mellitus with diabetic autonomic (poly)neuropathy (3) Diabetic nephropathy associated with type 2 diabetes mellitus: Code(s): E11.21 - Type 2 diabetes mellitus with diabetic nephropathy (4) Paroxysmal atrial fibrillation: Code(s): I48.0 - Paroxysmal atrial fibrillation (5) HTN (hypertension): Code(s): I10 - Essential (primary) hypertension Qualifiers: Hypertension type: primary hypertension Qualified Code(s): I10 - Essential (primary) hypertension (6) Peripheral vascular disease: Code(s): I73.9 - Peripheral vascular disease, unspecified (7) CAD (coronary artery disease): Code(s): I25.10 - Atherosclerotic heart disease of [place] coronary artery without angina pectoris Qualifiers: Associated angina: with stable angina Coronary Disease-Associated Artery/Lesion type: [place] artery [place] vs. transplanted heart: [place] heart Qualified Code(s): I25.118 - Atherosclerotic heart disease of [place] coronary artery with other forms of angina pectoris (8) Stented coronary artery: Comment: MIN to [place] LM to LAD for SVG graft failure, 03/2023 Code(s): Z95.5 - Presence of coronary angioplasty implant and graft (9) Diabetes mellitus: Code(s): E11.9 - Type 2 diabetes mellitus without complications Qualifiers: Diabetes mellitus complication detail: with autonomic neuropathy Diabetes mellitus complication status: with neurologic complications Diabetes mellitus intermediate designer insulin use: with custodial use Diabetes mellitus type: type 2 Qualified Code(s): E11.43 - Type 2 diabetes mellitus with diabetic autonomic (poly)neuropathy; Z79.4 - terminal makeup operator (current) use of insulin (10) Difficulty sleeping: Code(s): G47.9 - Sleep disorder, unspecified Plan Patient is 68-year-old gentleman came in for his regular follow-up appointment His anemia has improved he is on iron supplement as well as B12 supplement Hemoglobin is 12.6 it was checked September of this year it was previously 9.2 Patient says that he feels much better Patient have stented coronary artery as well as paroxysmal atrial fibrillation he is on 2 blood thinners Plavix and Xarelto through Cardiology Diabetes mellitus: His hemoglobin A1c 7.3 today He is waiting to see the film library clerk and has appointment in March Currently patient is on Trulicity 3 mg Farxiga Long-acting insulin 35 units at night His creatinine is 1.45 and it fluctuates lately up and then back down I am stopping his metformin Patient suffers from diabetic neuropathy GERD is stable with Carafate and omeprazole Difficulty sleeping at night: Patient is on trazodone 50 mg which is helping him Continue atorvastatin 40 mg and carvedilol that is through Cardiology Blood pressure management through Cardiology office blood pressure is stable Medications: New trazodone 50 mg PO BEDTIME 90 tabs 1RF Coding Level of Care Code Est Pt Level 5 (82468) Diagnoses Iron deficiency anemia due to chronic blood loss D50.0 Anemia type: iron deficiency Iron deficiency anemia type: chronic blood loss Diabetic autonomic neuropathy associated with type 2 diabetes mellitus E11.43 Diabetes mellitus complication detail: diabetic autonomic neuropathy Diabetes mellitus type: type 2 Diabetic nephropathy associated with type 2 diabetes mellitus E11.21 Paroxysmal atrial fibrillation I48.0 Primary hypertension I10 Hypertension type: primary hypertension Peripheral vascular disease I73.9 Coronary artery disease of [place] artery of [place] heart with stable angina pectoris I25.118 Associated angina: with stable angina Coronary Disease-Associated Artery/Lesion type: [place] artery [place] vs. transplanted heart: [place] heart Stented coronary artery Z95.5 Type 2 diabetes mellitus with diabetic autonomic neuropathy, with long-term current use of insulin E11.43; Z79.4 Diabetes mellitus complication detail: with autonomic neuropathy Diabetes mellitus complication status: with neurologic complications Diabetes mellitus intermediate designer insulin use: with custodial use Diabetes mellitus type: type 2 Difficulty sleeping G47.9 Additional Codes YOANA-7 Assessment Billing - YOANA-7 Assessment Tool: YOANA-7 Assessment [id number] ([id number]) Time Spent (min) 41 Comment Pre visit, [id number], reviewing chart, documenting, coordination of care
== END 2023-11-21 09:56 | disposition home or self-care (01) ==
PROVIDERS: PCP Internal Medicine; Visit Provider Internal Medicine
DX: E11.43 Type 2 diabetes mellitus with diabetic autonomic (poly)neuropathy (principal); E11.21 Type 2 diabetes mellitus with diabetic nephropathy; I48.0 Paroxysmal atrial fibrillation; I73.9 Peripheral vascular disease, unspecified; I25.118 Atherosclerotic heart disease of native coronary artery with other forms of angina pectoris; Z79.4 Long term (current) use of insulin; D50.0 Iron deficiency anemia secondary to blood loss (chronic); I10 Essential (primary) hypertension; Z95.5 Presence of coronary angioplasty implant and graft; G47.9 Sleep disorder, unspecified
CPT/HCPCS: 99215

== ENCOUNTER 2024-02-07 08:52 | Outpatient (REF) | payer BC, MEDICARE, SELFPAY ==
[2024-02-07 10:15] LABS: Hemoglobin 13.9 g/dl (14.0-18.0); Mean Corpuscular HGB Conc 33.1 g/dl (31.0-36.0); Mean Corpuscular Hemoglobin 34.5 pg (27.0-33.0); Mean Corpuscular Volume 104.2 fL (80.0-98.0); Mean Platelet Volume 10.5 fL (9.4-12.4); Platelet Count 190 X10*3/uL (160-400); Red Blood Count 4.03 X10*6/uL (4.60-5.80); Red Cell Distribution Width 12.8 % (11.0-16.0); White Blood Count 6.4 X10*3/uL (4.8-10.8)
[2024-02-07 10:47] LABS: B Type Natriuretic Peptide 181 pg/mL (<100)
[2024-02-07 11:12] LABS: Anion Gap 14 (12-20); Blood Urea Nitrogen 23 mg/dL (9-16); Calcium 9.2 mg/dL (8.4-10.2); Carbon Dioxide 25 mmol/L (22-29); Chloride 101 mmol/L (96-108); Cholesterol 136 mg/dL (<200); Estimated Glomerular Filt Rate 44; Glucose Random 139 mg/dL (60-115); HDL Cholesterol 61 mg/dL (>40); LDL Cholesterol Calculated 44 mg/dL (<100); Potassium 4.6 mmol/L (3.3-5.1); Sodium 135 mmol/L (135-145); Triglycerides 157 mg/dL (<150)
== END 2024-02-07 08:53 | disposition home or self-care (01) ==
LOC: HO.HMGCLDS 08:52
PROVIDERS: PCP Internal Medicine; Visit Provider Internal Medicine Cardiovascular Disease
DX: I50.9 Heart failure, unspecified (principal); Z95.1 Presence of aortocoronary bypass graft; D50.0 Iron deficiency anemia secondary to blood loss (chronic); M25.511 Pain in right shoulder; G89.29 Other chronic pain; I25.118 Atherosclerotic heart disease of native coronary artery with other forms of angina pectoris
CPT/HCPCS: 36415; 80048; 80061; 83880; 85027

== ENCOUNTER 2024-02-12 12:50 | Outpatient (AMB) | payer BC, MEDICARE, SELFPAY ==
[2024-02-12 13:12] VITALS: BP 100/58; PULSE 72; BMI 29.2
--- NOTE | 2024-02-12 13:12 | A.OFFVIS_ITS ---
Vital Signs 02/12/24 13:12 Height 5 ft 8 in Weight 191 lb 12.835 oz BMI 29.2 BP 100/58 L Blood Pressure Location Rt brachial Position Sitting Pulse 72 Intake Visit Reasons: 4 mth f/up Intake Note: 4 month follow-up c/o some dizziness but hasn't been able to get DM med's Sign Language Instructor Required: No Allergies codeine [CODEINE] Allergy (Unknown, Verified 11/21/23 09:39) UNKNOWN Medication List - Last Reconciled 02/12/24 by Fabrice Akhtar MD atorvastatin 40 mg PO DAILY carvedilol 3.125 mg PO BID clopidogrel 75 mg PO DAILY cyanocobalamin (vitamin B-12) 1,000 mcg PO DAILY 90 days dapagliflozin propanediol (Farxiga) 10 mg PO DAILY ferrous sulfate 324 mg PO BID 90 days flash glucose sensor ([employer] Sean 14 Day Sensor kit) every 14 days [[employer] sean reader As directed] insulin glargine-yfgn (Semglee (insulin glargine-yfgn) Pen) 35 units subcut BE DTIME insulin lispro (Humalog KwikPen (U-100) Insulin) 15 units subcut BID rivaroxaban (Xarelto) 20 mg PO DAILY sacubitril-valsartan 24-26 mg (Entresto) 1 tab PO BID spironolactone 25 mg PO DAILY HPI Comments Details: Bean comes for follow-up. He has been complaining of symptoms of lightheadedness mostly orthostatic. He said he has been drinking enough fluids. He has not been measuring blood pressure at home. Blood pressure today is noted to be systolic 100. No syncopal episodes. No prolonged palpitation irregular heartbeat. Hemoglobin has remained stable. No overt bleeding. His symptoms of shortness of breath have remained significantly control. Denies any orthopnea, PND. No exertional chest pain. No neurologic events. His sugars still remain elevated he says measuring at home about 150. His most recent echocardiogram shows improved LV ejection fraction to 60 65% [facility] Medical History (Updated 02/12/24 @ 13:44 by Fabrice Akhtar MD) Heart failure with reduced ejection fraction Ischemic cardiomyopathy CAD (coronary artery disease) HTN (hypertension) Paroxysmal atrial fibrillation Diabetic nephropathy associated with type 2 diabetes mellitus Diabetes type 2, controlled Surgical History (Updated 02/12/24 @ 13:44 by Fabrice Akhtar MD) Stented coronary artery S/P CABG x 3 Family History Father CVD (cardiovascular disease) S/P triple vessel bypass Mother CVD (cardiovascular disease) Sudden cardiac Other Substance use disorder Social History Housing: Apartment Alcohol intake: current Alcohol intake frequency: 0-2 drinks per day Alcohol type: hard liquor Patient Tobacco Use Status: Former Tobacco user Tobacco use type: Cigarette Years Smoked: 20 years e-Cigarette/Vaping Use: Never Used service: No Current occupational status: retired Cognitive needs: No Hearing needs: No Vision needs: Yes Review of Systems Const Denies chills, Denies fatigue, Denies fever(s), Denies frequent falls, Denies weakness, Denies weight gain and Denies weight loss ENT Denies dizziness Card Denies chest pain, Denies leg edema, Denies lightheadedness, Denies palpitations, Denies dyspnea, Denies dyspnea on exertion, Denies orthopnea and Denies other (loss of consciousness) Resp Denies cough, Denies dyspnea and Denies dyspnea on exertion GI Denies hematochezia and Denies change in stool character Musc Denies abnormal gait, Denies muscle weakness, Denies numbness, Denies radiating pain into limb and Denies tingling Neuro Denies abnormal gait, Denies dizziness, Denies frequent falls, Denies numbness, Denies tingling and Denies weakness Endo Denies fatigue and Denies palpitations Physical Exam Vital Signs: Last Vital Signs Pulse 72 02/12/24 13:12 BP 100/58 L 02/12/24 13:12 BMI result Body Mass Index 29.2 Const General: cooperative, healthy appearing, comfortable and no acute distress Orientation/consciousness: patient oriented x3 Neck Neck: Yes normal visual inspection and Yes no JVD Resp Effort & Inspection: normal respiratory effort Auscultation: clear to auscultation bilaterally, no crackles, no rales, no rhonchi and no wheezes Cardio Jugular venous distension: no JVD Rate: regular rate Rhythm: regular rhythm Heart sounds: S1 normal heart sound present, S2 normal heart sound present, no murmurs and no rubs Skin Other: pale skin color Neuro General: patient oriented x3 Extrem General: Yes normal to inspection, No no pedal edema and No calf tenderness Psych Appearance: grossly normal Mental Status: mental status grossly normal Speech and movement: Normal speech and movement present Assessment & Plan Assessment & Plan (1) CAD (coronary artery disease): Code(s): I25.10 - Atherosclerotic heart disease of [place] coronary artery without angina pectoris Category: Medical Qualifiers: Coronary Disease-Associated Artery/Lesion type: [place] artery [place] vs. transplanted heart: [place] heart Associated angina: with stable angina Qualified Code(s): I25.118 - Atherosclerotic heart disease of [place] coronary artery with other forms of angina pectoris Plan: CAD status post three-vessel coronary artery bypass grafting followed by left main to LAD stenting for failure of graft. Since then he is done well. LV ejection fraction has normalized. Clinically he is doing well at this point time. No significant bleeding episodes and since his bleeding has stopped his symptoms of shortness of breath have improved. His anginal symptoms have been shortness of breath. Continue aggressive blood pressure control. Continue high-intensity statin therapy. Last LDL is well optimized. Continue Plavix till March of this year and beyond that continue full oral anticoagulation. Continue aggressive diabetes management goal hemoglobin A1c less than 7%. Blood pressures over corrected, see below. (2) Ischemic cardiomyopathy: Code(s): I25.5 - Ischemic cardiomyopathy Category: Medical Plan: Prior history of significant ischemic cardiomyopathy normalized LV EF since revascularization current medical therapy. Continue current neurohormonal modulation. No signs or symptoms of heart failure. Continue Entresto, carvedilol as well as Farxiga. Will reduce spironolactone due to symptoms lightheadedness. See below. (3) Paroxysmal atrial fibrillation: Code(s): I48.0 - Paroxysmal atrial fibrillation Category: Medical Plan: Paroxysmal atrial fibrillation which has remained suppressed. Doing well clinically from that perspective. Continue rhythm control approach. Continue full oral anticoagulation although this needs to be renally dose adjusted given his low GFR less than 50 mL/minute to 15 mg of Xarelto. Continue monitor renal function every 3 months. Plavix will be discontinued March. (4) Lightheadedness: Code(s): R42 - Dizziness and giddiness Plan: Lightheadedness with low blood pressure. Advised to maintain adequate hydration. Advised to monitor blood pressure at home maintain a log. Will reduce spironolactone to 12.5 mg daily. If he continues to be symptomatic with low blood pressure will need to discontinue spironolactone therapy. Continue Entresto and carvedilol therapy. Orthostatic precautions were discussed. Will follow up in the clinic in 3 months time, sooner p.r.n.. Thank you for allowing me to partake in his care Medications: New rivaroxaban (Xarelto) must administer with evening meal 15 mg PO DAILY 90 tabs 1RF Changed From spironolactone 25 mg PO DAILY 90 tabs 3RF To spironolactone 12.5 mg (1/2 x 25 mg) PO DAILY 90 tabs 3RF Coding Level of Care Code Est Pt Level 4 (75428) Diagnoses Coronary artery disease of [place] artery of [place] heart with stable angina pectoris I25.118 Coronary Disease-Associated Artery/Lesion type: [place] artery [place] vs. transplanted heart: [place] heart Associated angina: with stable angina Ischemic cardiomyopathy I25.5 Paroxysmal atrial fibrillation I48.0 Lightheadedness R42
== END 2024-02-12 13:45 | disposition home or self-care (01) ==
PROVIDERS: PCP Internal Medicine; Visit Provider Internal Medicine Cardiovascular Disease
DX: I25.118 Atherosclerotic heart disease of native coronary artery with other forms of angina pectoris (principal); I25.5 Ischemic cardiomyopathy; I48.0 Paroxysmal atrial fibrillation; R42 Dizziness and giddiness
CPT/HCPCS: 99214

== ENCOUNTER → 2024-02-12 12:50 | Outpatient (BNVA) | payer BC, MEDICARE, SELFPAY | PROVIDERS: PCP Internal Medicine; Visit Provider Internal Medicine Cardiovascular Disease | DX: I25.118 Atherosclerotic heart disease of native coronary artery with other forms of angina pectoris (principal); I25.5 Ischemic cardiomyopathy; I48.0 Paroxysmal atrial fibrillation; R42 Dizziness and giddiness | CPT/HCPCS: 99212 ==

== ENCOUNTER 2024-03-26 08:40 | Outpatient (AMB) | payer BC, MEDICARE, SELFPAY ==
--- NOTE | 2024-03-26 08:44 | A.OFFPC_ITS ---
Vital Signs 03/26/24 08:45 Height 5 ft 8 in Weight 198 lb 2 oz BMI 30.1 BP 130/70 Blood Pressure Location Rt brachial Position Sitting Pulse 71 Pulse Source Pulse Oximeter Pulse Oximetry (%) 96 Oxygen Delivery Method Room Air Intake Visit Reasons: 4 month follow up Allergies codeine [CODEINE] Allergy (Unknown, Verified 03/26/24 08:48) UNKNOWN Medication List - Last Reconciled 03/26/24 by Yg Levi MD atorvastatin 40 mg PO DAILY carvedilol 3.125 mg PO BID clopidogrel 75 mg PO DAILY cyanocobalamin (vitamin B-12) 1,000 mcg PO DAILY 90 days dapagliflozin propanediol (Farxiga) 10 mg PO DAILY ferrous sulfate 324 mg PO BID 90 days flash glucose sensor (Futurestate[employer]yle Sean 14 Day Sensor kit) every 14 days [Mind-NRGstyle sean reader As directed] insulin glargine-yfgn (Semglee (insulin glargine-yfgn) Pen) 35 units subcut BEDTIME insulin lispro (Humalog KwikPen (U-100) Insulin) 15 units subcut BID rivaroxaban (Xarelto) 15 mg PO DAILY sacubitril-valsartan 24-26 mg (Entresto) 1 tab PO BID spironolactone 12.5 mg (1/2 x 25 mg) PO DAILY Tobacco use date assessed: 03/26/24 Fall risk assessment: No Falls in past year Last assessed Fall Risk: 03/26/24 Dental Screening Dental Screen Date: 03/26/24 Did you have a dental visit in the last 12 months?: Yes Did you have a dental problem in the last 6 months where you did not have access to dental care?: No Was dental information given to patient?: Patient has dentist HPI 4 month follow up HPI Details Patient is 68-year-old gentleman came in for his regular follow-up appointment His anemia has improved he is on iron supplement as well as B12 supplement Last set of lab was January of this year Patient have stented coronary artery as well as paroxysmal atrial fibrillation he is on 2 blood thinners Plavix and Xarelto through Cardiology Diabetes mellitus: His hemoglobin A1c was 7.3 last visit and it is 8.0 He is waiting to see the lead software developer [facility] and has appointment in March Patient was on Trulicity 3 mg but has not been able to get that for the past 4 months due to its being back ordered [facility] Long-acting insulin 35 units at night Diabetic nephropathy with stable creatinine around 1.57 and GFR in 40s, last time checked January of this year it was 44 I have placed referral to Nephrology Patient suffers from diabetic neuropathy GERD is stable with Carafate and omeprazole Difficulty sleeping at night: Patient is on trazodone 50 mg which is helping him Continue atorvastatin 40 mg and carvedilol that is through Cardiology Blood pressure management through Cardiology office blood pressure is stable COUNT INCLUDES THE [facility] Medical History Heart failure with reduced ejection fraction Ischemic cardiomyopathy CAD (coronary artery disease) HTN (hypertension) Paroxysmal atrial fibrillation Diabetic nephropathy associated with type 2 diabetes mellitus Diabetes type 2, controlled Surgical History Stented coronary artery S/P CABG x 3 Family History Father CVD (cardiovascular disease) S/P triple vessel bypass Mother CVD (cardiovascular disease) Sudden cardiac Other Substance use disorder Social History Housing: Apartment Alcohol intake: current Alcohol intake frequency: 0-2 drinks per day Alcohol type: hard liquor Patient Tobacco Use Status: Former Tobacco user Tobacco use type: Cigarette Years Smoked: 20 years e-Cigarette/Vaping Use: Never Used service: No Current occupational status: retired Cognitive needs: No Hearing needs: No Vision needs: Yes Questionnaire Thrive Questionnaire Date Thrive assessed: 03/26/24 I am a: Patient What is your living situation today?: I have a steady place to live Within the past 12 months, did the food you bought not last and you didn't have the money to get more?: Never true Within the past 12 months, did you worry whether your food would run out before you got money to buy more?: I choose not to answer this question Do you have trouble paying for medicines?: No Do you have trouble getting transportation to medical appointments?: No Do you have trouble paying your heating and electricity bill?: No Do you have trouble taking care of your child, family member or friend?: No Do you have trouble with day-to-day activities such as bathing, preparing meals, shopping, managing finances, etc.?: No Are you currently unemployed and looking for a job?: No Are you interested in more education?: No Please select the resources that you would like help with: None Currently or been in a relationship where the following occur: Controlled Financially and I choose not to answer THRIVE Score: 1 AUDIT C Alcohol Use Questionnaire (AUDIT-C) 1. How often do you have a drink containing alcohol?: 2-3 times a week 2. How many drinks containing alcohol do you have on a typical day when you are drinking?: 1 or 2 3. How often do you have six or more drinks on one occasion?: Never Total Score: 3 Score Reviewed/Action Taken: Yes YOANA-7 AMB Questionnaire YOANA-7 Date YOANA - 7 assessed: 03/26/24 Feeling nervous, anxious, or on edge: 0 = Not at all Not being able to stop or control worryin = Not at all Worrying too much about different things: 0 = Not at all Trouble relaxin = Not at all Being so restless that it is hard to sit still: 0 = Not at all Becoming easily annoyed or irritable: 0 = Not at all Feeling afraid as if something awful might happen: 0 = Not at all Total YOANA-7 score (0-4 normal; 5-9 mild; 10-14 moderate; 15-21 severe): 0 Source: Developed by Drs. Asif Davis, Kaitlin Frias, Lucian Recinos and colleagues, with an educational yaritza from [employer]. YOANA-7 Assessment Billing OYANA-7 Assessment Tool: YOANA-7 Assessment 78864 Review of Systems Const Denies chills and Denies fever(s) ENT Denies epistaxis and Denies nasal discharge Card Denies chest pain Resp Denies chest congestion, Denies cough and Denies hemoptysis GI Denies diarrhea and Denies nausea Skin/Breast Denies rash Neuro Reports no additional complaints Psych Reports no additional complaints Endo Reports no additional complaints Physical exam (Primary Care) Vital Signs: Last Vital Signs Pulse 71 03/26/24 08:45 BP 130/70 03/26/24 08:45 Pulse Ox 96 03/26/24 08:45 Oxygen Delivery Method Room Air 03/26/24 08:45 BMI result Body Mass Index 30.1 Tobacco/Smoking Status: Tobacco use Status Tobacco use date assessed 03/26/24 03/26/24 08:50 Patient Tobacco Use Status Former Tobacco user 03/26/24 08:44 Tobacco use type Cigarette 03/26/24 08:44 e-Cigarette/Vaping Use Never Used 03/26/24 08:44 Thrive Assessment: Date of Thrive Assessment Date Thrive assessed 03/26/24 03/26/24 08:50 Currently or been in a relationship where the following occur: Controlled Financially and I choose not to answer Const General: cooperative, comfortable and no acute distress Orientation/consciousness: patient oriented x3 HENMT Head: Yes normocephalic Eyes General: appearance normal, both eyes and all related structures Neck Neck: Yes supple Resp Effort & Inspection: normal respiratory effort, no cough and no stridor Cardio Rhythm: regular rhythm Heart sounds: S1 normal heart sound present and S2 normal heart sound present Skin General skin exam: turgor normal Neuro General: patient oriented x3, tone normal and moves all extremities Extrem Right lower extremity: no edema Left lower extremity: no edema Results AMB Hemoglobin A1c AMB Hemoglobin A1c 8.0 % Last Edit by Remi Ward CMA on 03/26/24 09: 16 Results Reviewed Results Reviewed: Laboratory Last Values Hgb A1c (Clinic) 8.0 % (4.0-6.0) H 03/26/24 09:16 Assessment and Plan Assessment & Plan (1) Diabetes mellitus: Code(s): E11.9 - Type 2 diabetes mellitus without complications Qualifiers: Diabetes mellitus complication detail: with autonomic neuropathy Diabetes mellitus complication status: with neurologic complications Diabetes mellitus long term care administrator insulin use: with usp use Diabetes mellitus type: type 2 Qualified Code(s): E11.43 - Type 2 diabetes mellitus with diabetic autonomic (poly)neuropathy; Z79.4 - assistant terminal manager (current) use of insulin (2) HTN (hypertension): Code(s): I10 - Essential (primary) hypertension Qualifiers: Hypertension type: primary hypertension Qualified Code(s): I10 - Essential (primary) hypertension (3) CAD (coronary artery disease): Code(s): I25.10 - Atherosclerotic heart disease of [place] coronary artery without angina pectoris Qualifiers: Associated angina: with stable angina Coronary Disease-Associated Artery/Lesion type: [place] artery [place] vs. transplanted heart: [place] heart Qualified Code(s): I25.118 - Atherosclerotic heart disease of [place] coronary artery with other forms of angina pectoris (4) Difficulty sleeping: Code(s): G47.9 - Sleep disorder, unspecified (5) Paroxysmal atrial fibrillation: Code(s): I48.0 - Paroxysmal atrial fibrillation (6) Anemia: Code(s): D64.9 - Anemia, unspecified Qualifiers: Anemia type: iron deficiency Iron deficiency anemia type: chronic blood loss Qualified Code(s): D50.0 - Iron deficiency anemia secondary to blood loss (chronic) (7) Diabetic neuropathy: Code(s): E11.40 - Type 2 diabetes mellitus with diabetic neuropathy, unspecified Qualifiers: Diabetes mellitus complication detail: diabetic autonomic neuropathy Diabetes mellitus type: type 2 Qualified Code(s): E11.43 - Type 2 diabetes mellitus with diabetic autonomic (poly)neuropathy (8) Diabetic nephropathy associated with type 2 diabetes mellitus: Code(s): E11.21 - Type 2 diabetes mellitus with diabetic nephropathy (9) Peripheral vascular disease: Code(s): I73.9 - Peripheral vascular disease, unspecified (10) Stented coronary artery: Comment: MIN to [place] LM to LAD for SVG graft failure, 03/2023 Code(s): Z95.5 - Presence of coronary angioplasty implant and graft Plan Patient is 68-year-old gentleman came in for his regular follow-up appointment His anemia has improved he is on iron supplement as well as B12 supplement Last set of lab was January of this year Patient have stented coronary artery as well as paroxysmal atrial fibrillation he is on 2 blood thinners Plavix and Xarelto through Cardiology Diabetes mellitus: His hemoglobin A1c was 7.3 last visit and it is 8.0 He is waiting to see the lead software developer [facility] and has appointment in March Patient was on Trulicity 3 mg but has not been able to get that for the past 4 months due to its being back ordered Farxiga Long-acting insulin 35 units at night Diabetic nephropathy with stable creatinine around 1.57 and GFR in 40s, last time checked January of this year it was 44 I have placed referral to Nephrology Patient suffers from diabetic neuropathy GERD is stable with Carafate and omeprazole Difficulty sleeping at night: Patient is on trazodone 50 mg which is helping him Continue atorvastatin 40 mg and carvedilol that is through Cardiology Blood pressure management through Cardiology office blood pressure is stable Orders: Orders AMB Hemoglobin A1c Today Z13.9 - Encounter for screening, unspecified Referrals Nephrology Referral E11.21 - Type 2 diabetes mellitus with diabetic nephr opathy Coding Level of Care Code Est Pt Level 4 (84314) Complex EM visit Add On G2211 Diagnoses Type 2 diabetes mellitus with diabetic autonomic neuropathy, with long-term current use of insulin E11.43; Z79.4 Diabetes mellitus complication detail: with autonomic neuropathy Diabetes mellitus complication status: with neurologic complications Diabetes mellitus usp insulin use: with usp use Diabetes mellitus type: type 2 Primary hypertension I10 Hypertension type: primary hypertension Coronary artery disease of [place] artery of [place] heart with stable angina pectoris I25.118 Associated angina: with stable angina Coronary Disease-Associated Artery/Lesion type: [place] artery [place] vs. transplanted heart: [place] heart Difficulty sleeping G47.9 Paroxysmal atrial fibrillation I48.0 Iron deficiency anemia due to chronic blood loss D50.0 Anemia type: iron deficiency Iron deficiency anemia type: chronic blood loss Diabetic autonomic neuropathy associated with type 2 diabetes mellitus E11.43 Diabetes mellitus complication detail: diabetic autonomic neuropathy Diabetes mellitus type: type 2 Diabetic nephropathy associated with type 2 diabetes mellitus E11.21 Peripheral vascular disease I73.9 Stented coronary artery Z95.5 Additional Codes YOANA-7 Assessment Billing - YOANA-7 Assessment Tool: YOANA-7 Assessment [id number] ([id number])
[2024-03-26 08:45] VITALS: BP 130/70; PULSE 71; O2SAT 96; BMI 30.1
== END 2024-03-26 09:23 | disposition home or self-care (01) ==
PROVIDERS: PCP Internal Medicine; Visit Provider Internal Medicine
DX: E11.43 Type 2 diabetes mellitus with diabetic autonomic (poly)neuropathy (principal); Z79.4 Long term (current) use of insulin; I25.118 Atherosclerotic heart disease of native coronary artery with other forms of angina pectoris; I48.0 Paroxysmal atrial fibrillation; E11.21 Type 2 diabetes mellitus with diabetic nephropathy; I73.9 Peripheral vascular disease, unspecified; I10 Essential (primary) hypertension; G47.9 Sleep disorder, unspecified; D50.0 Iron deficiency anemia secondary to blood loss (chronic); Z95.5 Presence of coronary angioplasty implant and graft
CPT/HCPCS: 83036; 99214; G2211

== ENCOUNTER 2024-04-18 09:36 | Outpatient (AMB) | payer BC, MEDICARE, SELFPAY ==
[2024-04-18 09:41] VITALS: BP 118/72; PULSE 86; O2SAT 94; BMI 30.3
--- NOTE | 2024-04-18 09:41 | HO.NEPHOV ---
Vital Signs 04/18/24 09:41 Height 5 ft 8 in Weight 199 lb BMI 30.3 BP 118/72 Blood Pressure Location Rt brachial Position Sitting Pulse 86 Pulse Source Pulse Oximeter Pulse Oximetry (%) 94 Oxygen Delivery Method Room Air Intake Visit Reasons: Type 2 DM with diabetic nephropathy/ Conf Director Of Strategic Marketing Required: No Accompanied by: Self / Same As Patient Allergies codeine [CODEINE] Allergy (Unknown, Verified 04/18/24 09:43) UNKNOWN Medication List - Last Reconciled 04/18/24 by Dick Contreras MD atorvastatin 40 mg PO DAILY carvedilol 3.125 mg PO BID clopidogrel 75 mg PO DAILY cyanocobalamin (vitamin B-12) 1,000 mcg PO DAILY 90 days dapagliflozin propanediol (Farxiga) 10 mg PO DAILY ferrous sulfate 324 mg PO BID 90 days flash glucose sensor ([employer]Style Sean 14 Day Sensor kit) every 14 days [P[employer] Biosc[employer]estyle sean reader As directed] insulin glargine-yfgn (Semglee (insulin glargine-yfgn) Pen) 35 units subcut BEDTIME insulin lispro (Humalog KwikPen (U-100) Insulin) 15 units subcut BID rivaroxaban (Xarelto) 15 mg PO DAILY sacubitril-valsartan 24-26 mg (Entresto) 1 tab PO BID spironolactone 12.5 mg (1/2 x 25 mg) PO DAILY HPI Comments Details: Bean is a pleasant 68-year-old man with a history of diabetes mellitus and coronary disease. History of coronary angiogram in 08/19/2023 followed by stent placement. History of ischemic cardiomyopathy/congestive heart failure with a reduced ejection fraction. His baseline serum creatinine was around 1.1 mg/dL back in Jul 2023. After the coronary angiogram creatinine is bumped up to 1.5 and has remained in the range since August of 2023. He has had no change in urinary habits. No hematuria. No renal stones. No diarrhea constipation. No shortness of breath at rest. No nausea or vomiting. No rash. No arthralgias. [facility] Medical History Heart failure with reduced ejection fraction Ischemic cardiomyopathy CAD (coronary artery disease) HTN (hypertension) Paroxysmal atrial fibrillation Diabetic nephropathy associated with type 2 diabetes mellitus Diabetes type 2, controlled Surgical History Stented coronary artery S/P CABG x 3 Family History Father CVD (cardiovascular disease) S/P triple vessel bypass Mother CVD (cardiovascular disease) Sudden cardiac Other Substance use disorder Social History Housing: Apartment Alcohol intake: current Alcohol intake frequency: 0-2 drinks per day Alcohol type: hard liquor Patient Tobacco Use Status: Former Tobacco user Tobacco use type: Cigarette Years Smoked: 20 years e-Cigarette/Vaping Use: Never Used service: No Current occupational status: retired Cognitive needs: No Hearing needs: No Vision needs: Yes Physical Exam Vital Signs: Last Vital Signs Pulse 86 04/18/24 09:41 BP 118/72 04/18/24 09:41 Pulse Ox 94 04/18/24 09:41 Oxygen Delivery Method Room Air 04/18/24 09:41 BMI result Body Mass Index 30.3 Const General: comfortable; No acute distress Orientation/consciousness: patient oriented x3 Eyes General: appearance normal, both eyes and all related structures Visual Ariza: normal visual ariza by confrontation Neck Neck: Yes supple and Yes no JVD Resp Effort & Inspection: normal respiratory effort and respiratory effort not decreased Auscultation: rhonchi Cardio Palpation: no palpable S3 and no palpable S4 Heart sounds: no rubs GI Inspection: Yes normal to inspection Palpation (GI): Soft to palpation Percussion: Yes normal to percussion Auscultation: normal bowel sounds General: Yes no CVA tenderness Back/Spine/Pelvis Back: no CVA tenderness Skin General skin exam: no petechiae and no purpura Neuro General: patient oriented x3 and no focal motor deficits Extrem General: No clubbing and No edema Results Reviewed Nephrology Results: Hgb 13.9 g/dl (14.0-18.0) L 02/07/24 WBC 6.4 X10*3/uL (4.8-10.8) 02/07/24 Plt Count 190 X10*3/uL (160-400) 02/07/24 Sodium 135 mmol/L (135-145) 02/07/24 Potassium 4.6 mmol/L (3.3-5.1) 02/07/24 Chloride 101 mmol/L (96-108) 02/07/24 Carbon Dioxide 25 mmol/L (22-29) 02/07/24 BUN 23 mg/dL (9-16) H 02/07/24 Creatinine 1.57 mg/dL (0.5-1.4) H 02/07/24 Calcium 9.2 mg/dL (8.4-10.2) 02/07/24 Urine Protein Negative mg/dL (Neg-Trace) 09/11/23 Assessment & Plan Assessment & Plan (1) HTN (hypertension): Code(s): I10 - Essential (primary) hypertension Category: Medical Qualifiers: Hypertension type: primary hypertension Qualified Code(s): I10 - Essential (primary) hypertension (2) CKD (chronic kidney disease): Code(s): N18.9 - Chronic kidney disease, unspecified Category: Medical Plan 68-year-old man with longstanding diabetes mellitus coronary disease and cardiomyopathy with chronic kidney disease. He has underlying chronic kidney disease most likely due to diabetic kidney disease. He has sustained acute kidney injury back in July 2023 The differential diagnosis would include contrast induced nephropathy leading to tubular injury. Other possibility would include cholesterol emboli. Obstructive uropathy should certainly be ruled out. Other less likely possibilities including glomerular nephritis or interstitial disease we will be ruled out as well. Recommendation Check urine for sodium creatinine protein. Renal ultrasonogram. Recheck renal panel again. Goal adjust mellitus to slow the portion of renal disease. Continue overt nephrotoxic agents. Agree with current medications including SGLT2 inhibitors. Optimize blood sugar Optimize blood pressure and avoid hypotension. Concur with other medical management we will follow along with the team. Orders: Orders Total Protein Urine Random Today I10 - Essential (primary) hypertension, N18.9 - Chronic kidney disease, unspecified Creatinine Urine Today I10 - Essential (primary) hypertension, N18.9 - Chronic kidney disease, unspecified UA and rflx microscopic Today I10 - Essential (primary) hypertension, N18.9 - Chronic kidney disease, unspecified Vitamin D 25-OH (D2 and D3) Today I10 - Essential (primary) hypertension, N18.9 - Chronic kidney disease, unspecified Basic Metabolic Panel Today I10 - Essential (primary) hypertension, N18.9 - Chronic kidney disease, unspecified Complete Blood Count Auto Diff Today I10 - Essential (primary) hypertension, N18.9 - Chronic kidney disease, unspecified Parathyroid Hormone Intact Today I10 - Essential (primary) hypertension, N18.9 - Chronic kidney disease, unspecified US renal BI Today N18.9 - Chronic kidney disease, unspecified Coding Level of Care Code New Pt Level 4 (88604) Diagnoses Primary hypertension I10 Hypertension type: primary hypertension CKD (chronic kidney disease) N18.9
== END 2024-04-18 10:08 | disposition home or self-care (01) ==
PROVIDERS: PCP Internal Medicine; Visit Provider Internal Medicine Hypertension Specialist
DX: I13.10 Hypertensive heart and chronic kidney disease without heart failure, with stage 1 through stage 4 chronic kidney disease, or unspecified chronic kidney disease (principal); E11.22 Type 2 diabetes mellitus with diabetic chronic kidney disease; N18.9 Chronic kidney disease, unspecified; I25.10 Atherosclerotic heart disease of native coronary artery without angina pectoris
CPT/HCPCS: 99204

== ENCOUNTER → 2024-04-18 09:36 | Outpatient (BNVA) | payer BC, MEDICARE, SELFPAY | PROVIDERS: PCP Internal Medicine; Visit Provider Internal Medicine Hypertension Specialist | DX: E11.21 Type 2 diabetes mellitus with diabetic nephropathy (principal); I48.0 Paroxysmal atrial fibrillation; I10 Essential (primary) hypertension; N18.9 Chronic kidney disease, unspecified; Z95.5 Presence of coronary angioplasty implant and graft; Z95.1 Presence of aortocoronary bypass graft | CPT/HCPCS: 99202 ==

== ENCOUNTER 2024-04-23 08:41 | Outpatient (REF) | payer MEDICARE, SELFPAY ==
[2024-04-23 10:15] LABS: MANUAL DIFF FLAG NO
[2024-04-23 10:17] LABS: Basophils Absolute Auto 0.1 X10*3/uL (0.0-0.2); Basophils Percent Auto 1.5 % (0-2); Eosinophils Absolute Auto 0.2 X10*3/uL (0.0-0.4); Hematocrit 44.4 % (42.0-52.0); Hemoglobin 14.7 g/dl (14.0-18.0); Imm Gran Abs Auto 0.02 X10*3/uL (0.00-0.03); Imm Gran Pct Auto 0.4 % (0.0-0.4); Lymphocytes Absolute Auto 0.9 X10*3/uL (1.2-4.9); Lymphocytes Percent Auto 19.3 % (20-40); Mean Corpuscular HGB Conc 33.1 g/dl (31.0-36.0); Mean Corpuscular Hemoglobin 35.1 pg (27.0-33.0); Mean Platelet Volume 10.5 fL (9.4-12.4); Monocytes Absolute Auto 0.6 X10*3/uL (0.1-1.2); Monocytes Percent Auto 13.1 % (2-11); Neutrophils Absolute Auto 2.9 x10*3/uL (2.0-8.3); Neutrophils Percent Auto 60.7 % (45-73); Platelet Count 174 X10*3/uL (160-400); Red Blood Count 4.19 X10*6/uL (4.60-5.80); Red Cell Distribution Width 12.9 % (11.0-16.0); White Blood Count 4.8 X10*3/uL (4.8-10.8)
[2024-04-23 10:19] LABS: Appearance Urine Clear; Color Urine Yellow; Glucose Urine UA >=1000 mg/dL (Negative); Leukocyte Esterase Urine Negative (Negative); Nitrite Urine Negative (Negative); PH 5.5 (5.0-9.0); Specific Gravity - Urine 1.025 (1.005-1.025); UMIC TRIGGER UA YES; Urine Blood Negative (Negative); Urine Ketones Negative (Negative); Urine Protein Negative (Neg-Trace)
[2024-04-23 10:25] LABS: Bacteria Urine None Seen (None Seen); Hyaline Casts Urine 0-2 /LPF (0-2); RBC Urine 0-2 /HPF (0-2); Squamous Epithelial Cell Urine 0-2 /HPF (0-2); WBC Urine 0-5 /HPF (0-5)
[2024-04-23 10:52] LABS: Creatinine Urine 86.75 mg/dL; Total Protein Urine Random 14 mg/dL (<12)
[2024-04-23 10:55] LABS: Anion Gap 13 (12-20); Blood Urea Nitrogen 9 mg/dL (9-16); Calcium 9.4 mg/dL (8.4-10.2); Carbon Dioxide 28 mmol/L (22-29); Chloride 106 mmol/L (96-108); Estimated Glomerular Filt Rate > 60; Glucose Random 179 mg/dL (60-115); Potassium 4.3 mmol/L (3.3-5.1); Sodium 143 mmol/L (135-145)
[2024-04-23 11:01] LABS: Parathyroid Hormone Intact 47.7 pg/mL (8.7-77.1)
[2024-04-27 16:18] LABS: Vitamin D 25-OH, D2 <4 ng/mL; Vitamin D 25-OH, D3 25 ng/mL; Vitamin D 25-OH, Total 25 ng/mL (30-100)
== END 2024-04-23 08:42 | disposition home or self-care (01) ==
LOC: HO.HMGCLDS 08:41
PROVIDERS: PCP Internal Medicine; Visit Provider Internal Medicine Hypertension Specialist
DX: I10 Essential (primary) hypertension (principal); N18.9 Chronic kidney disease, unspecified
CPT/HCPCS: 36415; 80048; 81001; 82306; 82570; 83970; 84156; 85025

== ENCOUNTER 2024-05-02 13:15 | Outpatient (AMB) | payer BC, MEDICARE, SELFPAY ==
--- NOTE | 2024-05-02 13:17 | MHC.OFFVIS ---
Vital Signs 05/02/24 13:18 Height 5 ft 8 in Weight 198 lb 6.656 oz BMI 30.2 BP 118/66 Blood Pressure Location Lt brachial Position Sitting Pulse 82 Intake Visit Reasons: 3 mth f/up Intake Note: 3 month follow-up c/o leg pain Voip Network Technician Required: No Allergies codeine [CODEINE] Allergy (Unknown, Verified 04/18/24 09:43) UNKNOWN Medication List - Last Reconciled 05/02/24 by Fabrice Akhtar MD atorvastatin 40 mg PO DAILY carvedilol 3.125 mg PO BID clopidogrel 75 mg PO DAILY cyanocobalamin (vitamin B-12) 1,000 mcg PO DAILY 90 days dapagliflozin propanediol (Farxiga) 10 mg PO DAILY ferrous sulfate 324 mg PO BID 90 days flash glucose sensor ([employer]Style Sean 14 Day Sensor kit) every 14 days [freestyle sean reader As directed] insulin glargine-yfgn (Semglee (insulin glargine-yfgn) Pen) 35 units subcut BEDTIME insulin lispro (Humalog KwikPen (U-100) Insulin) 15 units subcut BID rivaroxaban (Xarelto) 15 mg PO DAILY sacubitril-valsartan 24-26 mg (Entresto) 1 tab PO BID spironolactone 12.5 mg (1/2 x 25 mg) PO DAILY HPI Comments Details: Bean comes for follow-up. He has been doing very well from cardiac perspective. No recurrent bleeding issues. No heart failure symptoms. Denies alcohol use at home. Has balance issues and is trying to work with physical therapy. Denies any orthopnea, PND, leg edema. No prolonged palpitation irregular heartbeat. No exertional chest pain. No lightheadedness, syncope on current medications. COUNT INCLUDES THE [facility] Medical History Heart failure with reduced ejection fraction Ischemic cardiomyopathy CAD (coronary artery disease) HTN (hypertension) Paroxysmal atrial fibrillation Diabetic nephropathy associated with type 2 diabetes mellitus Diabetes type 2, controlled Surgical History Stented coronary artery S/P CABG x 3 Family History Father CVD (cardiovascular disease) S/P triple vessel bypass Mother CVD (cardiovascular disease) Sudden cardiac Other Substance use disorder Social History Housing: Apartment Alcohol intake: current Alcohol intake frequency: 0-2 drinks per day Alcohol type: hard liquor Patient Tobacco Use Status: Former Tobacco user Tobacco use type: Cigarette Years Smoked: 20 years e-Cigarette/Vaping Use: Never Used service: No Current occupational status: retired Cognitive needs: No Hearing needs: No Vision needs: Yes Review of Systems Const Denies chills, Denies fatigue, Denies fever(s), Denies frequent falls, Denies weakness, Denies weight gain and Denies weight loss ENT Denies dizziness Card Denies chest pain, Denies leg edema, Denies lightheadedness, Denies palpitations, Denies dyspnea, Denies dyspnea on exertion, Denies orthopnea and Denies other (loss of consciousness) Resp Denies cough, Denies dyspnea and Denies dyspnea on exertion GI Denies hematochezia and Denies change in stool character Musc Denies abnormal gait, Denies muscle weakness, Denies numbness, Denies radiating pain into limb and Denies tingling Neuro Denies abnormal gait, Denies dizziness, Denies frequent falls, Denies numbness, Denies tingling and Denies weakness Endo Denies fatigue and Denies palpitations Physical Exam Vital Signs: Last Vital Signs Pulse 82 05/02/24 13:18 BP 118/66 05/02/24 13:18 BMI result Body Mass Index 30.2 Const General: cooperative, healthy appearing, comfortable and no acute distress Orientation/consciousness: patient oriented x3 Neck Neck: Yes normal visual inspection and Yes no JVD Resp Effort & Inspection: normal respiratory effort Auscultation: clear to auscultation bilaterally, no crackles, no rales, no rhonchi and no wheezes Cardio Jugular venous distension: no JVD Rate: regular rate Rhythm: regular rhythm Heart sounds: S1 normal heart sound present, S2 normal heart sound present, no murmurs and no rubs Skin Other: pale skin color Neuro General: patient oriented x3 Extrem General: Yes normal to inspection, No no pedal edema and No calf tenderness Psych Appearance: grossly normal Mental Status: mental status grossly normal Speech and movement: Normal speech and movement present Assessment & Plan Assessment & Plan (1) Paroxysmal atrial fibrillation: Code(s): I48.0 - Paroxysmal atrial fibrillation Category: Medical Plan: Paroxysmal atrial fibrillation which has remained suppressed. Currently on full oral anticoagulation with Xarelto. Will stop clopidogrel therapy given that his stenting is more than a year Holter reduce bleeding risk as he has history of GI bleeding. Complete abstinence from alcohol was discussed. Continue aggressive blood pressure control. Semi annual renal function test should be pursued. Continue rhythm control approach (2) CAD (coronary artery disease): Code(s): I25.10 - Atherosclerotic heart disease of [place] coronary artery without angina pectoris Category: Medical Qualifiers: Coronary Disease-Associated Artery/Lesion type: [place] artery [place] vs. transplanted heart: [place] heart Associated angina: with stable angina Qualified Code(s): I25.118 - Atherosclerotic heart disease of [place] coronary artery with other forms of angina pectoris Plan: CAD status post coronary bypass grafting subsequently going from left main to LAD stenting March 2023 for failed graft in heart failure syndrome. LV ejection fraction has normalized. Continue aggressive medical therapy. Currently on Xarelto therapy and therefore will discontinue antiplatelet therapy to reduce bleeding risk. Continue high-intensity statin therapy. Continue aggressive diabetes management goal hemoglobin A1c less than 7%. Smoking cessation was applauded. Encouraged to increase activity level. (3) Heart failure: Code(s): I50.9 - Heart failure, unspecified Category: Medical Plan: Heart failure in the setting of CAD. Heart failure syndrome has improved with improved LV ejection fraction and with maintenance rhythm. Continue the same. Continue current neurohormonal modulation with carvedilol, Entresto, spironolactone as well as Farxiga. Currently not on any diuretic regimen. Kidney function is improved. Daily weight monitoring avoidance of salt loading was discussed. Follow up in the clinic in 6 months time after an echocardiogram. Thank you for allowing me to partake in his care Orders: Orders CA echo transthoracic complete 6 Months I50.9 - Heart failure, unspecified Medications: New rivaroxaban (Xarelto) must administer with evening meal 20 mg PO DAILY 90 tabs 3RF Refilled sacubitril-valsartan 24-26 mg (Entresto) 1 tab PO BID 180 tabs 3RF Discontinued clopidogrel Discontinued Reason: Doctor's Order 75 mg PO DAILY 90 tabs 3RF Coding Level of Care Code Est Pt Level 4 (28686) Diagnoses Paroxysmal atrial fibrillation I48.0 Coronary artery disease of [place] artery of [place] heart with stable angina pectoris I25.118 Coronary Disease-Associated Artery/Lesion type: [place] artery [place] vs. transplanted heart: [place] heart Associated angina: with stable angina Heart failure I50.9
[2024-05-02 13:18] VITALS: BP 118/66; PULSE 82; BMI 30.2
== END 2024-05-02 13:35 | disposition home or self-care (01) ==
PROVIDERS: PCP Internal Medicine; Visit Provider Internal Medicine Cardiovascular Disease
DX: I48.0 Paroxysmal atrial fibrillation (principal); I25.118 Atherosclerotic heart disease of native coronary artery with other forms of angina pectoris; I50.9 Heart failure, unspecified
CPT/HCPCS: 99214

== ENCOUNTER → 2024-05-02 13:15 | Outpatient (BNVA) | payer BC, MEDICARE, SELFPAY | PROVIDERS: PCP Internal Medicine; Visit Provider Internal Medicine Cardiovascular Disease | DX: I48.0 Paroxysmal atrial fibrillation (principal); I25.118 Atherosclerotic heart disease of native coronary artery with other forms of angina pectoris; I50.9 Heart failure, unspecified | CPT/HCPCS: 99212 ==

== ENCOUNTER 2024-05-08 08:53 | Outpatient (REF) | payer BC, MEDICARE, SELFPAY ==
--- NOTE | ~2024-05-08 | US_ITS ---
EXAMINATION: US RETROPERITONEAL LIMITED (RENAL ONLY) CLINICAL INFORMATION: Chronic kidney disease, unspecified. COMPARISON: None available. TECHNIQUE: Real-time imaging of the kidneys using grayscale and color Doppler technique. FINDINGS: Submitted for interpretation on June 13, 2024. RIGHT KIDNEY: 12 x 7 x 7 cm (SAG x AP x TRV). Volume is 284 cc. Normal echotexture. No solid or cystic lesion. Normal renal cortical thickness. Normal flow on color Doppler interrogation of the renal hilum. LEFT KIDNEY: 13 x 6 x 6 cm (SAG x AP x TRV). Volume is 242 cc. Normal echotexture. Normal renal cortical thickness no hydronephrosis. 1.5 cm anechoic lesion in the anterior midportion without flow on color Doppler or septations. Normal flow on color Doppler interrogation of the left renal hilum. US/US renal BI IMPRESSION: No hydronephrosis. 1.5 cm cyst, left kidney. Electronically signed by: Sanjeev Fonseca MD 06/13/2024 02:00 PM [facility]
== END 2024-05-08 08:54 | disposition home or self-care (01) ==
LOC: HO.HMGCX 08:53
PROVIDERS: PCP Internal Medicine; Visit Provider Internal Medicine Hypertension Specialist
DX: N18.9 Chronic kidney disease, unspecified (principal)
CPT/HCPCS: 76775

== ENCOUNTER → 2024-05-08 09:04 | Outpatient (BNV) | payer BC, MEDICARE, SELFPAY | PROVIDERS: PCP Internal Medicine; Visit Provider Radiology Diagnostic Radiology | DX: N18.9 Chronic kidney disease, unspecified (principal) | CPT/HCPCS: 76775 ==

== ENCOUNTER 2024-06-17 11:14 | Outpatient (AMB) | payer BC, MEDICARE, SELFPAY ==
--- NOTE | 2024-06-17 11:23 | HO.NEPHOV ---
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: No Accompanied by: Self / Same As Patient Allergies codeine [CODEINE] Allergy (Unknown, Verified 06/17/24 11:25) UNKNOWN Medication List - Last Reconciled 06/17/24 by Dick Contreras MD atorvastatin 40 mg PO DAILY carvedilol 3.125 mg PO BID cyanocobalamin (vitamin B-12) 1,000 mcg PO DAILY 90 days dapagliflozin propanediol (Farxiga) 10 mg PO DAILY ferrous sulfate 324 mg PO BID 90 days flash glucose sensor ([employer] Sean 14 Day Sensor kit) every 14 days [[employer] sean reader As directed] insulin glargine-yfgn (Semglee (insulin glargine-yfgn) Pen) 35 units subcut BEDTIME insulin lispro (Humalog KwikPen (U-100) Insulin) 15 units subcut BID rivaroxaban (Xarelto) 15 mg PO DAILY sacubitril-valsartan 24-26 mg (Entresto) 1 tab PO BID spironolactone 12.5 mg (1/2 x 25 mg) PO DAILY HPI Comments Details: Bean is a pleasant 68-year-old man with a history of diabetes mellitus and coronary disease. History of coronary angiogram in 08/19/2023 followed by stent placement. History of ischemic cardiomyopathy/congestive heart failure with a reduced ejection fraction. His baseline serum creatinine was around 1.1 mg/dL back in Jul 2023. After the coronary angiogram creatinine is bumped up to 1.5 and has remained in the range since August of 2023. He has had no change in urinary habits. No hematuria. No renal stones. No diarrhea constipation. No shortness of breath at rest. No nausea or vomiting. No rash. No arthralgias. 06/17/24 Overall doing OK Foot pain - neuropathy PFSH Medical History Heart failure with reduced ejection fraction Ischemic cardiomyopathy CAD (coronary artery disease) HTN (hypertension) Paroxysmal atrial fibrillation Diabetic nephropathy associated with type 2 diabetes mellitus Diabetes type 2, controlled Surgical History Stented coronary artery S/P CABG x 3 Family History Father CVD (cardiovascular disease) S/P triple vessel bypass Mother CVD (cardiovascular disease) Sudden cardiac Other Substance use disorder Social History Housing: Apartment Alcohol intake: current Alcohol intake frequency: 0-2 drinks per day Alcohol type: hard liquor Patient Tobacco Use Status: Former Tobacco user Tobacco use type: Cigarette Years Smoked: 20 years e-Cigarette/Vaping Use: Never Used service: No Current occupational status: retired Cognitive needs: No Hearing needs: No Vision needs: Yes Physical Exam Vital Signs: Last Vital Signs Pulse 86 06/17/24 11:24 BP 116/66 06/17/24 11:24 Pulse Ox 94 06/17/24 11:24 Oxygen Delivery Method Room Air 06/17/24 11:24 BMI result Body Mass Index 30.4 Const General: comfortable; No acute distress Orientation/consciousness: patient oriented x3 Eyes General: appearance normal, both eyes and all related structures Visual Ariza: normal visual ariza by confrontation Neck Neck: Yes supple and Yes no JVD Resp Effort & Inspection: normal respiratory effort and respiratory effort not decreased Auscultation: rhonchi Cardio Palpation: no palpable S3 and no palpable S4 Heart sounds: no rubs GI Inspection: Yes normal to inspection Palpation (GI): Soft to palpation Percussion: Yes normal to percussion Auscultation: normal bowel sounds General: Yes no CVA tenderness Back/Spine/Pelvis Back: no CVA tenderness Skin General skin exam: no petechiae and no purpura Neuro General: patient oriented x3 and no focal motor deficits Extrem General: No clubbing and No edema Results Reviewed Nephrology Results: Hgb 14.7 g/dl (14.0-18.0) 04/23/24 WBC 4.8 X10*3/uL (4.8-10.8) 04/23/24 Plt Count 174 X10*3/uL (160-400) 04/23/24 Sodium 143 mmol/L (135-145) 04/23/24 Potassium 4.3 mmol/L (3.3-5.1) 04/23/24 Chloride 106 mmol/L (96-108) 04/23/24 Carbon Dioxide 28 mmol/L (22-29) 04/23/24 BUN 9 mg/dL (9-16) 04/23/24 Creatinine 0.97 mg/dL (0.5-1.4) 04/23/24 Calcium 9.4 mg/dL (8.4-10.2) 04/23/24 PTH Intact 47.7 pg/mL (8.7-77.1) 04/23/24 Urine Protein Negative mg/dL (Neg-Trace) 04/23/24 Urine Creatinine 86.75 mg/dL 04/23/24 Renal US 05/08/24 Assessment & Plan Assessment & Plan (1) HTN (hypertension): Code(s): I10 - Essential (primary) hypertension Category: Medical Qualifiers: Hypertension type: primary hypertension Qualified Code(s): I10 - Essential (primary) hypertension (2) CKD (chronic kidney disease): Code(s): N18.9 - Chronic kidney disease, unspecified Category: Medical Plan 68-year-old man with longstanding diabetes mellitus coronary disease and cardiomyopathy with chronic kidney disease. He has underlying chronic kidney disease most likely due to diabetic kidney disease. He has sustained acute kidney injury back in July 2023 The differential diagnosis would include contrast induced nephropathy leading to tubular injury. Other possibility would include cholesterol emboli seems less likely since renal function has returned to baseline No Obstructive uropathy based on ultrasonogram glomerular nephritis or interstitial disease seem unlikely based on the bland urinary sediments . Renal ultrasonogram shows normal kidney. . Goal is to slow the progression of renal disease. Continue to avoid nephrotoxic agents. Agree with current medications including SGLT2 inhibitors. Optimize blood sugar Optimize blood pressure and avoid hypotension. Neuropathy Will Try Lyrica Follow up with PCP Orders: Orders Total Protein Urine Random 6 Months N18.9 - Chronic kidney disease, unspecified Creatinine Urine 6 Months N18.9 - Chronic kidney disease, unspecified Basic Metabolic Panel 6 Months N18.9 - Chronic kidney disease, unspecified UA and rflx microscopic 6 Months N18.9 - Chronic kidney disease, unspecified Medications: New pregabalin (Lyrica) 25 mg PO BEDTIME 90 caps 0RF Coding Level of Care Code Est Pt Level 4 (35844) Diagnoses Primary hypertension I10 Hypertension type: primary hypertension CKD (chronic kidney disease) N18.9
[2024-06-17 11:24] VITALS: BP 116/66; PULSE 86; O2SAT 94; BMI 30.4
== END 2024-06-17 11:38 | disposition home or self-care (01) ==
PROVIDERS: PCP Internal Medicine; Visit Provider Internal Medicine Hypertension Specialist
DX: I12.9 Hypertensive chronic kidney disease with stage 1 through stage 4 chronic kidney disease, or unspecified chronic kidney disease (principal); E11.22 Type 2 diabetes mellitus with diabetic chronic kidney disease; N18.9 Chronic kidney disease, unspecified
CPT/HCPCS: 99214

== ENCOUNTER → 2024-06-17 11:14 | Outpatient (BNVA) | payer BC, MEDICARE, SELFPAY | PROVIDERS: PCP Internal Medicine; Visit Provider Internal Medicine Hypertension Specialist | DX: I12.9 Hypertensive chronic kidney disease with stage 1 through stage 4 chronic kidney disease, or unspecified chronic kidney disease (principal); E11.22 Type 2 diabetes mellitus with diabetic chronic kidney disease; N18.9 Chronic kidney disease, unspecified | CPT/HCPCS: 99212 ==

== ENCOUNTER 2024-08-21 11:25 | Outpatient (REF) | payer MEDICARE, SELFPAY ==
[2024-08-21 13:39] LABS: MANUAL DIFF FLAG NO
[2024-08-21 13:53] LABS: Basophils Absolute Auto 0.1 X10*3/uL (0.0-0.2); Basophils Percent Auto 1.7 % (0-2); Eosinophils Absolute Auto 0.1 X10*3/uL (0.0-0.4); Eosinophils Percent Auto 1.7 % (0-4); Hematocrit 45.9 % (42.0-52.0); Hemoglobin 15.7 g/dl (14.0-18.0); Imm Gran Abs Auto 0.03 X10*3/uL (0.00-0.03); Imm Gran Pct Auto 0.5 % (0.0-0.4); Lymphocytes Percent Auto 14.9 % (20-40); Mean Corpuscular HGB Conc 34.2 g/dl (31.0-36.0); Mean Corpuscular Hemoglobin 35.9 pg (27.0-33.0); Mean Platelet Volume 10.8 fL (9.4-12.4); Monocytes Absolute Auto 0.7 X10*3/uL (0.1-1.2); Monocytes Percent Auto 11.3 % (2-11); Neutrophils Absolute Auto 4.5 x10*3/uL (2.0-8.3); Neutrophils Percent Auto 69.9 % (45-73); Platelet Count 173 X10*3/uL (160-400); Red Blood Count 4.37 X10*6/uL (4.60-5.80); Red Cell Distribution Width 14.2 % (11.0-16.0); White Blood Count 6.4 X10*3/uL (4.8-10.8)
[2024-08-21 14:02] LABS: Estimated Average Glucose 174 mg/dL; Hemoglobin A1C 245.5679 umol/L; Hemoglobin A1c % 7.7 % (<6.0); Total Hemoglobin (HGBA1C) 4046.0954 umol/L
[2024-08-21 14:06] LABS: Creatinine Urine 179.26 mg/dL; Microalbum/Creatinine Ratio Ur 173.4 ug/mg cr (<30)
[2024-08-21 14:38] LABS: Alanine Aminotransferase 108 U/L (0-40); Albumin Level 4.1 g/dL (3.5-5.0); Alkaline Phosphatase 101 U/L (39-117); Anion Gap 18 (12-20); Aspartate Amino Transferase 139 U/L (5-37); Bilirubin Total 1.4 mg/dL (0.0-1.0); Blood Urea Nitrogen 8 mg/dL (9-16); Calcium 9.2 mg/dL (8.4-10.2); Carbon Dioxide 27 mmol/L (22-29); Chloride 96 mmol/L (96-108); Estimated Glomerular Filt Rate > 60; Glucose Random 185 mg/dL (60-115); Potassium 4.2 mmol/L (3.3-5.1); Sodium 137 mmol/L (135-145)
[2024-08-21 15:00] LABS: TSH reflex Free T4 2.54 uIU/mL (0.32-4.0)
[2024-08-22 22:24] LABS: LDL Cholesterol Direct 50 mg/dL (<100)
== END 2024-08-21 11:26 | disposition home or self-care (01) ==
LOC: HO.HMGCLDS 11:25
PROVIDERS: PCP Internal Medicine; Visit Provider Internal Medicine
DX: Z00.01 Encounter for general adult medical examination with abnormal findings (principal); E11.43 Type 2 diabetes mellitus with diabetic autonomic (poly)neuropathy; I10 Essential (primary) hypertension; I48.0 Paroxysmal atrial fibrillation; E11.21 Type 2 diabetes mellitus with diabetic nephropathy; E11.22 Type 2 diabetes mellitus with diabetic chronic kidney disease; N18.9 Chronic kidney disease, unspecified; E66.09 Other obesity due to excess calories; Z68.28 Body mass index [BMI] 28.0-28.9, adult; Z79.4 Long term (current) use of insulin; Z79.899 Other long term (current) drug therapy
CPT/HCPCS: 36415; 80053; 82043; 82570; 83036; 83721; 84443; 85025; 96127; 99212; 99397

== ENCOUNTER 2024-08-21 11:25 | Outpatient (AMB) | payer MEDICARE, SELFPAY ==
[2024-08-21 11:33] VITALS: BP 142/76; PULSE 93; O2SAT 96; BMI 28.9
--- NOTE | 2024-08-21 11:33 | MHC.PC.OV ---
Vital Signs 08/21/24 11:33 Height 5 ft 8 in Weight 190 lb 4 oz BMI 28.9 BP 142/76 H Blood Pressure Location Rt brachial Position Sitting Pulse 93 Pulse Source Pulse Oximeter Pulse Oximetry (%) 96 Oxygen Delivery Method Room Air Intake Visit Reasons: Annual PE Allergies codeine [CODEINE] Allergy (Unknown, Verified 08/21/24 11:40) UNKNOWN Medication List - Last Reconciled 08/21/24 by Yg Levi MD atorvastatin 40 mg PO DAILY carvedilol 3.125 mg PO BID cyanocobalamin (vitamin B-12) 1,000 mcg PO DAILY 90 days dapagliflozin propanediol (Farxiga) 10 mg PO DAILY ferrous sulfate 324 mg PO BID 90 days flash glucose sensor ([employer] Sean 14 Day Sensor kit) every 14 days [SPO [employer] sean reader As directed] insulin glargine-yfgn (Semglee (insulin glargine-yfgn) Pen) 35 units subcut BEDTIME insulin lispro (Humalog KwikPen (U-100) Insulin) 15 units subcut BID pregabalin (Lyrica) 25 mg PO BEDTIME rivaroxaban (Xarelto) 15 mg PO DAILY sacubitril-valsartan 24-26 mg (Entresto) 1 tab PO BID spironolactone 12.5 mg (1/2 x 25 mg) PO DAILY Tobacco use date assessed: 08/21/24 Fall risk assessment: No Falls in past year Last assessed Fall Risk: 08/21/24 Dental Screening Dental Screen Date: 08/21/24 Did you have a dental visit in the last 12 months?: Yes Did you have a dental problem in the last 6 months where you did not have access to dental care?: No Was dental information given to patient?: Patient has dentist HPI Annual PE HPI Details Physical exam appointment - The patient is a 69-year-old male presenting with multiple chronic conditions. His essential hypertension is noted to be slightly uncontrolled with a recent blood pressure reading of 142 systolic. For Type 2 Diabetes Mellitus, the patient's most recent hemoglobin A1C was 7.2 approximately 6-7 months ago. The patient had issues obtaining continuous glucose monitoring sensors but has transitioned to using a Dexcom 7 system. He is scheduled for endocrinology and nephrology follow-ups. - The patient's paroxysmal atrial fibrillation is followed up regularly, with his next appointment set for November 04. - The patient?s chronic kidney disease had an estimated glomerular filtration rate normalized at 60 in March 2022, and his nephrology follow-up is in November. - The patient reports diabetic neuropathy characterized by burning and tingling sensations in the feet, which affects balance and mobility. There is a significant reduction in foot sensation objectively. - He has a history of gastrointestinal investigations, including upper endoscopy and colonoscopy performed roughly a year ago, during which chronic bleeding issues without a clear source were being evaluated. He has a history of receiving blood transfusions due to anemia with low hemoglobin levels. Health Maintenance - Monitoring and management of blood pressure and blood sugar. - Scheduling of regular appointments with endocrinology and nephrology. - Recommendation for annual foot examination by a compressor operator adjuster to manage diabetic neuropathy. However patient is reluctant - Addressing Gastroesophageal Reflux Disease through previous endoscopy procedures. [place] of Care: Cardiology Dr. Akhtar Nephrology Endocrinology [facility] Medications - Atorvastatin 40 mg for dyslipidemia - Xarelto for anticoagulation, addressing atrial fibrillation - Combination medication for hypertension not available, suggested switch to Valsartan, as combination medication is not available - Current diabetic management with [employer] 7 continuous glucose monitor Diagnostic results - Blood tests indicating a normalized GFR of 60 - Hemoglobin A1C last measured at 7.2 Patient Instructions - Continue current medication regimen and fruit or nut picker Valsartan from the pharmacy. - Follow up with scheduled appointments for endocrinology, cardiology, and nephrology. - Undergo routine laboratory tests, including liver enzymes and urine tests. - Annual compressor operator adjuster visit for diabetic neuropathy management. Handicap placard paperwork filled, due to severe neuropathy Continued to drink alcohol, once again patient was advised to stop as soon as possible Review of Systems - Cardiovascular: Reports atrial fibrillation. - Endocrine: Reports diabetes with current hemoglobin A1C of 7.2. - Gastrointestinal: Reports history of gastrointestinal bleeding and GERD. Reports frequent colonoscopies and endoscopies. - Neurological: Reports significant diabetic neuropathy with burning, tingling, and numbness in feet affecting balance. - General: No fever no chills - Neurological: No headaches no dizziness - Ear nose throat: No sore throat no hearing difficulty no ear pain - Genitourinary: No dysuria - Skin: No new complaints Physical Exam General: Cooperative, healthy appearing, comfortable, no acute distress Orientation: Patient oriented x3 Limitations: Unable to walk long distances due to neuropathy Head: Normal to inspection Ears: Within normal limit visually Nose: Normal external nose present Face and sinus: Normal facial exam Eyes: Appearance normal, extraocular movement intact pupils reactive Neck: Normal visual inspection and supple Respiratory: Normal respiratory effort and able to speak in complete sentences. Clear to auscultation, no stridor Cardiovascular: S1 and S2 GI: Normal to inspection. Soft to palpation and nontender Skin: Turgor normal, no acute findings Neuro: Patient oriented x3, motor sensory intact, balance unsteady due to neuropathy, tandem failed Extremities: Normal to inspection, but patient reports neuropathy in feet with burning and tingling sensation, affecting balance and walking. [facility] Medical History Heart failure with reduced ejection fraction Ischemic cardiomyopathy CAD (coronary artery disease) HTN (hypertension) Paroxysmal atrial fibrillation Diabetic nephropathy associated with type 2 diabetes mellitus Diabetes type 2, controlled Surgical History Stented coronary artery S/P CABG x 3 Family History Father CVD (cardiovascular disease) S/P triple vessel bypass Mother CVD (cardiovascular disease) Sudden cardiac Other Substance use disorder Social History Housing: Apartment Alcohol intake: current Alcohol intake frequency: 0-2 drinks per day Alcohol type: hard liquor Patient Tobacco Use Status: Former Tobacco user Tobacco use type: Cigarette Years Smoked: 20 years e-Cigarette/Vaping Use: Never Used service: No Current occupational status: retired Cognitive needs: No Hearing needs: No Vision needs: Yes Questionnaire PHQ-9 Over the last 2 weeks, how often have you been bothered by any of the following problems? 1. Little interest or pleasure in doing things: several days 2. Feeling down, depressed, or hopeless: not at all 3. Trouble falling or staying asleep, or sleeping too much: not at all 4. Feeling tired or having little energy: not at all 5. Poor appetite or overeating: not at all 6. Feeling bad about yourself - or that you are a failure or have let yourself or your family down: not at all 7. Trouble concentrating on things, such as reading the newspaper or watching television: not at all 8. Moving or speaking so slowly that other people could have noticed. Or the opposite - being so fidgety or restless that you have been moving around a lot more than usual: not at all 9. Thoughts that you would be better off or of hurting yourself in some way: not at all Total score: 1 Depression Screening Interpretation: Negative Depression Screening Done: Yes 56371 - PHQ-9 Billing: Yes Source: Developed by Drs. Asif Davis, Kaitlin Frias, Lucian Recinos and colleagues, with an educational yaritza from [employer]. Thrive Questionnaire Date Thrive assessed: 08/21/24 I am a: Patient What is your living situation today?: I have a steady place to live Within the past 12 months, did the food you bought not last and you didn't have the money to get more?: Never true Within the past 12 months, did you worry whether your food would run out before you got money to buy more?: Never true Do you have trouble paying for medicines?: I choose not to answer this question Do you have trouble getting transportation to medical appointments?: No Do you have trouble paying your heating and electricity bill?: No Do you have trouble taking care of your child, family member or friend?: No Do you have trouble with day-to-day activities such as bathing, preparing meals, shopping, managing finances, etc.?: No Are you currently unemployed and looking for a job?: No Are you interested in more education?: No Please select the resources that you would like help with: Paying for medicine Currently or been in a relationship where the following occur: I choose not to answer THRIVE Score: 0 AUDIT C Alcohol Use Questionnaire (AUDIT-C) 1. How often do you have a drink containing alcohol?: 2-3 times a week 2. How many drinks containing alcohol do you have on a typical day when you are drinking?: 3 or 4 3. How often do you have six or more drinks on one occasion?: Never Total Score: 4 Score Reviewed/Action Taken: Yes YOANA-7 AMB Questionnaire YOANA-7 Date YOANA - 7 assessed: 08/21/24 Feeling nervous, anxious, or on edge: 0 = Not at all Not being able to stop or control worryin = Not at all Worrying too much about different things: 0 = Not at all Trouble relaxin = Not at all Being so restless that it is hard to sit still: 0 = Not at all Becoming easily annoyed or irritable: 0 = Not at all Feeling afraid as if something awful might happen: 0 = Not at all Total YOANA-7 score (0-4 normal; 5-9 mild; 10-14 moderate; 15-21 severe): 0 Source: Developed by Drs. Asif Davis, Kaitlin Frias, Lucian Recinos and colleagues, with an educational yaritza from [employer]. YOANA-7 Assessment Billing YOANA-7 Assessment Tool: YOANA-7 Assessment 10701 Physical exam (Primary Care) Vital Signs: Last Vital Signs Pulse 93 08/21/24 11:33 BP 142/76 H 08/21/24 11:33 Pulse Ox 96 08/21/24 11:33 Oxygen Delivery Method Room Air 08/21/24 11:33 BMI result Body Mass Index 28.9 Tobacco/Smoking Status: Tobacco use Status Tobacco use date assessed 08/21/24 08/21/24 11:41 Patient Tobacco Use Status Former Tobacco user 08/21/24 11:36 Tobacco use type Cigarette 08/21/24 11:36 e-Cigarette/Vaping Use Never Used 08/21/24 11:36 PHQ-9: PHQ-9 Score PHQ-9: Total score 1 08/21/24 11:41 Depression Screening Interpretation: Negative Thrive Assessment: Date of Thrive Assessment Date Thrive assessed 08/21/24 08/21/24 11:36 Currently or been in a relationship where the following occur: I choose not to answer Coding Level of Care Code Est Pt Level 4 (02752) Est Pt Prev Care >65y(24112) Diagnoses Encounter for general adult medical examination with abnormal findings Z00.01 Type 2 diabetes mellitus with diabetic autonomic neuropathy, with long-term current use of insulin E11.43; Z79.4 Diabetes mellitus complication detail: with autonomic neuropathy Diabetes mellitus complication status: with neurologic complications Diabetes mellitus jail insulin use: with jail use Diabetes mellitus type: type 2 Primary hypertension I10 Hypertension type: primary hypertension Paroxysmal atrial fibrillation I48.0 Diabetic nephropathy associated with type 2 diabetes mellitus E11.21 Diabetic autonomic neuropathy associated with type 2 diabetes mellitus E11.43 Diabetes mellitus complication detail: diabetic autonomic neuropathy Diabetes mellitus type: type 2 Additional Codes YOANA-7 Assessment Billing - YOANA-7 Assessment Tool: YOANA-7 Assessment 91104 ([id number]) PHQ-9 - 01817 - PHQ-9 Billing: Yes ([id number]) Assessment & Plan Assessment & Plan (1) Encounter for general adult medical examination with abnormal findings: Code(s): Z00.01 - Encounter for general adult medical examination with abnormal findings Category: Medical (2) Diabetes mellitus: Code(s): E11.9 - Type 2 diabetes mellitus without complications Category: Medical Qualifiers: Diabetes mellitus complication detail: with autonomic neuropathy Diabetes mellitus complication status: with neurologic complications Diabetes mellitus terminal manager insulin use: with jail use Diabetes mellitus type: type 2 Qualified Code(s): E11.43 - Type 2 diabetes mellitus with diabetic autonomic (poly)neuropathy; Z79.4 - salvage determiner (current) use of insulin (3) HTN (hypertension): Code(s): I10 - Essential (primary) hypertension Category: Medical Qualifiers: Hypertension type: primary hypertension Qualified Code(s): I10 - Essential (primary) hypertension (4) Paroxysmal atrial fibrillation: Code(s): I48.0 - Paroxysmal atrial fibrillation Category: Medical (5) Diabetic nephropathy associated with type 2 diabetes mellitus: Code(s): E11.21 - Type 2 diabetes mellitus with diabetic nephropathy Category: Medical (6) Diabetic neuropathy: Code(s): E11.40 - Type 2 diabetes mellitus with diabetic neuropathy, unspecified Category: Medical Qualifiers: Diabetes mellitus complication detail: diabetic autonomic neuropathy Diabetes mellitus type: type 2 Qualified Code(s): E11.43 - Type 2 diabetes mellitus with diabetic autonomic (poly)neuropathy Plan Physical exam appointment - The patient is a 69-year-old male presenting with multiple chronic conditions. His essential hypertension is noted to be slightly uncontrolled with a recent blood pressure reading of 142 systolic. For Type 2 Diabetes Mellitus, the patient's most recent hemoglobin A1C was 7.2 approximately 6-7 months ago. The patient had issues obtaining continuous glucose monitoring sensors but has transitioned to using a Dexcom 7 system. He is scheduled for endocrinology and nephrology follow-ups. - The patient's paroxysmal atrial fibrillation is followed up regularly, with his next appointment set for November 04. Patient is on blood thinners - The patient?s chronic kidney disease had an estimated glomerular filtration rate normalized at 60 in March 2022, and his nephrology follow-up is in November. - The patient reports diabetic neuropathy characterized by burning and tingling sensations in the feet, which affects balance and mobility. There is a significant reduction in foot sensation objectively. - He has a history of gastrointestinal investigations, including upper endoscopy and colonoscopy performed roughly a year ago, during which chronic bleeding issues without a clear source were being evaluated. He has a history of receiving blood transfusions due to anemia with low hemoglobin levels. - lipid disorder: Continue atorvastatin 40 mg Health Maintenance - Monitoring and management of blood pressure and blood sugar. - Scheduling of regular appointments with endocrinology and nephrology. - Recommendation for annual foot examination by a compressor operator adjuster to manage diabetic neuropathy. However patient is reluctant - Addressing Gastroesophageal Reflux Disease through previous endoscopy procedures. [place] of Care: Cardiology Dr. Akhtar Nephrology Endocrinology [facility] Medications - Atorvastatin 40 mg for dyslipidemia - Xarelto for anticoagulation, addressing atrial fibrillation - Combination medication for hypertension not available, suggested switch to Valsartan, as combination medication is not available - Current diabetic management with [employer] 7 continuous glucose monitor Diagnostic results - Blood tests indicating a normalized GFR of 60 - Hemoglobin A1C last measured at 7.2 Patient Instructions - Continue current medication regimen and fruit or nut picker Valsartan from the pharmacy. - Follow up with scheduled appointments for endocrinology, cardiology, and nephrology. - Undergo routine laboratory tests, including liver enzymes and urine tests. - Annual compressor operator adjuster visit for diabetic neuropathy management. Handicap placard paperwork filled, due to severe neuropathy Continued to drink alcohol, once again patient was advised to stop as soon as possible Orders: Orders Comprehensive Met. Panel Today E11.21 - Type 2 diabetes mellitus with diabetic nephropathy, E11.43 - Type 2 diabetes mellitus with diabetic autonomic (poly)neuropathy, E66.09 - Other obesity due to excess calories, I10 - Essential (primary) hypertension, I48.0 - Paroxysmal atrial fibrillation, Z00.01 - Encounter for general adult medical examination with abnormal findings, Z79.4 - salvage determiner (current) use of insulin Microalbumin, Random (w Creat) Today E11.21 - Type 2 diabetes mellitus with diabetic nephropathy, E11.43 - Type 2 diabetes mellitus with diabetic autonomic (poly)neuropathy, E66.09 - Other obesity due to excess calories, I10 - Essential (primary) hypertension, I48.0 - Paroxysmal atrial fibrillation, Z00.01 - Encounter for general adult medical examination with abnormal findings, Z79.4 - salvage determiner (current) use of insulin Complete Blood Count Auto Diff Today E11.21 - Type 2 diabetes mellitus with diabetic nephropathy, E11.43 - Type 2 diabetes mellitus with diabetic autonomic (poly)neuropathy, E66.09 - Other obesity due to excess calories, I10 - Essential (primary) hypertension, I48.0 - Paroxysmal atrial fibrillation, Z00.01 - Encounter for general adult medical examination with abnormal findings, Z79.4 - correction (current) use of insulin LDL Cholesterol Direct Today E11.21 - Type 2 diabetes mellitus with diabetic nephropathy, E11.43 - Type 2 diabetes mellitus with diabetic autonomic (poly)neuropathy, E66.09 - Other obesity due to excess calories, I10 - Essential (primary) hypertension, I48.0 - Paroxysmal atrial fibrillation, Z00.01 - Encounter for general adult medical examination with abnormal findings, Z79.4 - salvage determiner (current) use of insulin TSH reflex Free T4 Today E11.21 - Type 2 diabetes mellitus with diabetic nephropathy, E11.43 - Type 2 diabetes mellitus with diabetic autonomic (poly)neuropathy, E66.09 - Other obesity due to excess calories, I10 - Essential (primary) hypertension, I48.0 - Paroxysmal atrial fibrillation, Z00.01 - Encounter for general adult medical examination with abnormal findings, Z79.4 - salvage determiner (current) use of insulin Hemoglobin A1c Today E11.21 - Type 2 diabetes mellitus with diabetic nephropathy, E11.43 - Type 2 diabetes mellitus with diabetic autonomic (poly)neuropathy, E66.09 - Other obesity due to excess calories, I10 - Essential (primary) hypertension, I48.0 - Paroxysmal atrial fibrillation, Z00.01 - Encounter for general adult medical examination with abnormal findings, Z79.4 - correction (current) use of insulin Medications: New valsartan 40 mg PO BID 90 tabs 0RF
--- OUTSIDE RECORDS SUMMARY | 2024-08-21 13:13 | XMS_ITS | Clinical Summary ---
Author Organization [facility] Facility Address [address] [place] [address], [place] [address] Care Team Providers Care Wagon Winder Name Role Phone Unavailable Primary Care Provider Unavailabl e Social History Tobacco Use Types Packs/Day Years Used Date Smoking Tobacco: Never Assessed Sex and Gender Information Value Date Recorded Sex Assigned at Not on file Legal Sex Male 4:59 PM EST Gender Identity Not on file Sexual Orientation Not on file Plan of Treatment Health Maintenance Due Date Last Done Comments Colorectal Cancer Screening: Annual FOBT 2005 Colorectal Cancer Screening: Colonoscopy 2005 Colorectal Cancer Screening: Sigmoidoscopy 2005 Pneumococcal Vaccine: 65+ Ye ars (1 of 1 - PCV) 2021 Influenza Vaccine (#1) 2024 Hepatitis B Vaccine Aged Out No longe r eligible based on patient's age to complete this topic Insurance MEDICARE [facility] MEDICARE [facility]
--- OUTSIDE RECORDS SUMMARY | 2024-08-21 13:13 | XMS_ITS | Data Portability ---
Author Organization [facility], [address] Address [address] [place] [address] Assessment No assessment recorded. Plan of Treatment Reminders Order Date Submit Date Provider Last Modified By Organization Details Last Modified Time Details Appointments None recorded. Lab urinalysis, dipstick 2023 [email or web address] [facility], [address] [place] [address], [phone], 14:07:53 Referral None recorded. Procedures None recorded. Surgeries None recorded. Imaging None recorded. Medication Orders ciprofloxac in 500 mg tablet 2023 024 [id number], [address] [place], [place], [phone], 14:07:59 metronidazo le 500 mg tablet 2023 024 [facility] #[id number], [address] [place], [place], [phone], 14:07:58 Patient TargetsNo targets recorded. Patient Instructions Encounter Date Encounter Id Patient Instructions Last Modified By Organization Details Last Modified Time 03/09/2024 [id number] diarrhea: care instructions [email or web address] Not available 03/09/2024 14:07:50 Take 1 OTC Immodium after each loose bowel movement. No more than 4 tablets a day. Not available 03/09/2024 13:47:59 Reason for Referral None Reported. Results Created Date Observation Date Name Description Value Unit Range Abnormal Flag Note LastModifiedBy Organization Detail LastModifiedTime 03/09/2003/09/2024 urina lysis , dipst ick Unknown Analyte Normal = light yellow Not Available beckie porras [address] [place], [address], 03/09/2024 13:54:58 03/09/2003/09/2024 urina lysis , dipst ick Unknown Analyte Dark Yellow Not Available beckie porras [address] [place], [address], 03/09/2024 13:54:58 03/09/2003/09/2024 urina lysis , dipst ick Unknown Analyte Normal = clear Not Available [address]ckie porras [address] [place], [address], 03/09/2024 13:54:58 03/09/2003/09/2024 urina lysis , dipst ick Unknown Analyte Slight ly Cloudy Not Available beckie porras [address] [place], [address], 03/09/2024 13:54:58 03/09/2003/09/2024 urina lysis , dipst ick Unknown Analyte Normal = negati ve Not Available beckie porras [address] [place], [address], 03/09/2024 13:54:58 03/09/2003/09/2024 urina lysis , dipst ick Unknown Analyte 500 mg/dL Not Available beckie porras [address] [place], [address], 03/09/2024 13:54:58 03/09/2003/09/2024 urina lysis , dipst ick Unknown Analyte Normal = Negati ve Not Available beckie porras [address] [place], [address], 03/09/2024 13:54:58 03/09/2003/09/2024 urina lysis , dipst ick Unknown Analyte Small Not Available _ [facility] [address] [place], [address], 03/09/2024 13:54:58 03/09/2003/09/2024 urina lysis , dipst ick Unknown Analyte Normal = Negati ve Not Available beckie porras [address] [place], [address], 03/09/2024 13:54:58 03/09/2003/09/2024 urina lysis , dipst ick Unknown Analyte Trace Not Available [facility] [address] [place], [address], 03/09/2024 13:54:58 03/09/20 24 03/09/2024 urina lysis , dipst ick Unknown Analyte Normal = 1.010, 1.015, 1.020 Not Available beckie porras [address] [place], [address], 03/09/2024 13:54:58 03/09/20 24 03/09/2024 urina lysis , dipst ick Unknown Analyte 1.010 Not Available [place] [address] [place], [address], 03/09/2024 13:54:58 03/09/2003/09/2024 urina lysis , dipst ick Unknown Analyte Normal = Negati ve Not Available beckie porras [address] [place], [address], 03/09/2024 13:54:58 03/09/2003/09/2024 urina lysis , dipst ick Unknown Analyte Negati ve Not Available beckie porras [address] [place], [address], 03/09/2024 13:54:58 03/09/2003/09/2024 urina lysis , dipst ick Unknown Analyte Normal = 6.5, 7.0, 7.5, 8.0 Not Available beckie porras [address] [place], [address], 03/09/2024 13:54:58 03/09/2003/09/2024 urina lysis , dipst ick Unknown Analyte 5.5 Not Available [place] [address] [place], [address], 03/09/2024 13:54:58 03/09/2003/09/2024 urina lysis , dipst ick Unknown Analyte Normal = Negati ve Not Available beckie porras [address] [place], [address], 03/09/2024 13:54:58 03/09/2003/09/2024 urina lysis , dipst ick Unknown Analyte Negati ve Not Available beckie porras [address] [place], [address], 03/09/2024 13:54:58 03/09/2003/09/2024 urina lysis , dipst ick Unknown Analyte Normal = 0.2, 1.0 Not Available beckie porras [address] [place], [address], 03/09/2024 13:54:58 03/09/2003/09/2024 urina lysis , dipst ick Unknown Analyte 0.2 E.U./d L Not Available beckie porras [address] [place], [address], 03/09/2024 13:54:58 03/09/20 24 03/09/2024 urina lysis , dipst ick Unknown Analyte Normal = Negati ve Not Available _beckie porras [facility] [address] [place], [address], 03/09/2024 13:54:58 03/09/20 24 03/09/2024 urina lysis , dipst ick Unknown Analyte Negati ve Not Available beckie porras [facility] [address] [place], [address], 03/09/2024 13:54:58 03/09/2003/09/2024 urina lysis , dipst ick Unknown Analyte Normal = Negati ve Not Available beckie porras [place] [address] [place], [address], 03/09/2024 13:54:58 03/09/20 24 03/09/2024 urina lysis , dipst ick Unknown Analyte Negati ve Not Available beckie porras [address] [place], [address], 03/09/2024 13:54:58 Result Notes None recorded. 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 Medical Equipment None Reported. Allergies Allergen ID Allergen Name Allergen Category Reaction Reaction Severity Criticality Documentation Date Start Date Code Code System Note Provider Name and Address Organization Details Recorded Time 478582 codeine medicatio n Not available Not available Not available 03/09/2024 2670 RxNorm Elizabeth Celina null, [place] - [facility] 4 13:48:50 Medications Name Sig Start Date Stop Date Status Note LastModified by Organization Details LastModified Time atorvastati n 40 mg tablet active Not Available Not Available Not Available atorvastati n 20 mg tablet active Not Available Not Available Not Available trazodone 50 mg tablet TAKE 1/2 TABLET BY MOUTH DAILY AT BEDTIME CAN INCREASE TO 1 TABLET AT BEDTIME AFTER 3 DAYS NEEDED 03/09 completed Not Available Not Available Not Available sucralfate 1 gram tablet TAKE 1 TABLET BY MOUTH TWICE DAILY 03/09 completed Not Available Not Available Not Available metronidazo le 500 mg tablet Take 1 tablet every 8 hours by oral route for 7 days. 2023 active Not Available Not Available Not Avai lable clopidogrel 75 mg tablet TAKE 1 TABLET BY MOUTH EVERY DAY active Not Available Not Available No t Available ciprofloxac in 500 mg tablet Take 1 tablet every 12 hours by oral route for 7 days. 2023 active Not Available Not Available Not Avai lable omeprazole 40 mg capsule,del ayed release TAKE 1 CAPSULE BY MOUTH TWICE DAILY 03/09 completed Not Available Not Available Not Available spironolact one 25 mg tablet TAKE 1 TABLET BY MOUTH EVERY DAY active Not Available Not Available No t Available carvedilol 3.125 mg tablet TAKE 1 TABLET BY MOUTH TWO TIMES A DAY active Not Available Not Available No t Available mirtazapine 30 mg tablet active Not Available Not Available Not Available metformin 1,000 mg tablet TAKE 1 TABLET BY MOUTH TWICE DAILY active Not Available Not Available No t Available furosemide 20 mg tablet TAKE 1 TABLET BY MOUTH DAILY FOR 14 DAYS active Not Available Not Available No t Available BD Ultra-Fine Mini Pen Needle 31 gauge x 10/13 active Not Available Not Available Not Available ferrous sulfate 324 mg (65 mg iron) tablet,felipe yed release TAKE 1 TABLET BY MOUTH TWICE DAILY active Not Available Not Available No t Available Humalog KwikPen (U-100) Insulin 100 unit/mL subcutaneou s active Not Available Not Available Not Available Xarelto 15 mg tablet TAKE 1 TABLET BY MOUTH DAILY WITH EVENING MEAL active Not Available Not Available No t Available Xarelto 20 mg tablet 03/09 completed Not Available Not Available Not Available Prolensa 0.07 % eye drops PLACE 1 DROP IN THE RIGHT EYE ONCE DAILY AT breakfast START 2 DAYS PRIOR TO SURGERY active Not Available Not Available No t Available Farxiga 10 mg tablet TAKE 1 TABLET BY MOUTH EVERY DAY active Not Available Not Available No t Available Entresto 24 mg-26 mg tablet TAKE 1 TABLET BY MOUTH TWO TIMES A DAY active Not Available Not Available No t Available FreeStyle Sean 2 Sensor kit USE DIRECTED EVERY 14 DAYS active Not Available Not Available No t Available Trulicity 3 mg/0.5 mL subcutaneou s pen injector 03/09 completed Not Available Not Available Not Available Semglee (insulin glargine-yf gn) Pen 100 unit/mL (3 mL) subcutaneou s active Not Available Not Available Not Available Vitals Date Recorded Body height Provider Name an d Address Organization Details Last Updated DateTime 03/09/2024 170.18 cm Elizabeth Celina [place] - [facility] 03/09/2024 13:48:32 Date Recorded Body mass index (BMI) Body weight Provider Name and Address Organization Details Last Updated DateTime 03/09/2024 29 kg/m2 67296.59 g Elizabeth Celina PA - [facility] 03/09/2024 13:48:38 Date Recorded Oxygen saturation Oxygen saturation in Arterial blood by Pulse oximetry Provider Name and Address Organization Details Last Updated DateTime 03/09/2024 97 % 97 % Elizabeth Celina PA - [facility] 03/09/2024 13:54:28 Date Recorded Heart rate Provider Name an d Address Organization Details Last Updated DateTime 03/09/2024 79 /min Elizabeth Celina PA - [facility] 03/09/2024 13:54:29 Date Recorded Respiratory rate Provider Name a nd Address Organization Details Last Updated DateTime 03/09/2024 18 /min Elizabeth Celina PA - [facility] 03/09/2024 13:54:30 Date Recorded Systolic blood pressure Diastolic blood pressure Provider Name and Address Organization Details Last Updated DateTime 03/09/2024 137 mm[Hg] 82 mm[Hg] Elizabeth Celina PA - [facility] 03/09/2024 13:54:45 Social History Question Answer Notes LastModified by Organizat ion Details LastModified Time Tobacco Smoking Status Never Smoker Elizabeth Celina null, [place] - [facility] 03/09/2024 13:52:08 What Is Your Level Of Alcohol Consumption? Occasional Information not available 03/09/2024 Do You Use Any Illicit Or Recreational Drugs? No Information not available 03/09/2024 Have You Recently Traveled Abroad? Yes [place] 02/21-03/01 Information not available 03/09/2024 Do You Or Have You Ever Used Any Other Forms Of Tobacco Or Nicotine? No Information not available 03/09/2024 Sex: Unknown Functional Status None recorded. Mental Status None recorded. Family History Nothing Reported. Medical History No medical history recorded. Immunizations Vaccine Type Date Status Note Provider Nam e and Address Organization Details Recorded Time Influenza, high-dose, quadrivalent, PF 2 completed Elizabeth Celina null, [place] - [facility] 03/09/2024 13:48:41 COVID-19, mRNA, LNP-S, PF, 30 mcg/0.3 mL dose 1 completed Elizabeth Celina null, [place] - [facility] 03/09/2024 13:48:41 COVID-19, mRNA, LNP-S, PF, 30 mcg/0.3 mL dose 1 completed Elizabeth Celina null, [place] - [facility] 03/09/2024 13:48:41 COVID-19, mRNA, LNP-S, PF, 30 mcg/0.3 mL dose 1 completed Elizabeth Celina null, [place] - [facility] 03/09/2024 13:48:41 Pneumococcal conjugate PCV20, polysaccharide KSA200 conjugate, adjuvant, PF 2 completed Elizabeth Celina null, [place] - [facility] 03/09/2024 13:48:41 Influenza, split virus, quadrivalent, PF 8 completed Elizabeth Celina null, [place] - [facility] 03/09/2024 13:48:41 Influenza, split virus, quadrivalent, PF 0 completed Eliazbeth Celina null, [place] - [facility] 03/09/2024 13:48:41 Influenza, split virus, quadrivalent, PF 1 completed Elizabeth Celina null, [place] - [facility] 03/09/2024 13:48:41 Past Encounters Encounter ID Performer Location Encounter Start Date Encounter Closed Date Diagnosis/Indication Diagnosis SNOMED-CT Code Diagnosis ICD10 Code Diagnosis Note [id number] [facility] [address] [place] [address] 03/09/2024 13:40:03 03/09/2024 14:10:03 Diarrhea 42925179 R19.7 Based on your presentati on and exam you are being diagnosed with Diarrhea. Diarrhea can be caused by multiple things - virus, bacterial, exposure to food that is not tolerated. Diarrhea caused by infections usually results from eating or drinking contaminat ed food or water. Signs and symptoms of infection usually begin 12 hours to four days after exposure and resolve within three to seven days. Since your symptoms are severe and have lasted 2 weeks, we will start you on antibiotic s to try to resolve your symptoms. If your symptoms are not improving, or if they start worsening at any point, please f/u immediatel y Most cases of acute diarrhea are due to infections and are self-limit ed.Acute ? 14 days or fewer in duration Persistent diarrhea ? more than 14 but fewer than 30 days in durationCh ronic ? more than 30 days in duration Diarrhea not related to an infection can occur as a side effect of antibiotic s or other drugs, food allergies, gastrointe stinal diseases such as inflammato ry bowel disease, and other diseases. The following are my recommenda tions to help with your symptoms:1 . Drink adequate fluids ? If you have mild to moderate diarrhea, you can usually be treated at home by drinking extra fluids. The fluids should contain water, salt, and sugar. Avoid Gatorade however, but Pedialyte is ok.2. Diet ? There is no particular food or group of foods that is best while you have diarrhea. However, adequate nutrition is important during an episode of acute diarrhea. If you do not have an appetite, you can drink only liquids for a short period of time. Boiled starches and cereals (eg, potatoes, noodles, rice, wheat, and oats) with salt are recommende d if you have watery diarrhea; crackers, bananas, soup, and boiled vegetables may also be eaten.3. Preventing spread ? Adults with diarrhea should be cautious to avoid spreading infection to family, friends, and co-workers . You are considered infectious for as long as diarrhea continues. Microorgan isms causing diarrhea are spread from hand to mouth.4. Frequent Hand Washing If diarrhea continues - Stool Culture would be indicated. You need to be seen again if you develop any of the following and the ER may be needed for IV fluids.1. More than eight loose stools per day lasting longer than 5 days.2. Fever3. Bloody stool4. Dehydratio n5. Symptoms that continue for more than one week6. A weakened immune system7. You require hospitaliz ation Thank you for using [employer] today, Please feel free to contact our office if you have any questions or concerns. Health Concerns Section Related Observation LastModified by Organization Detai ls LastModified Time None Recorded Concern Status LastModified by Organization Details LastModified Time None Recorded Advance Directives Directive None Recorded Payers Encounter Date Sequence Insurance Name Policy Number Policy Han Covered Member ID Han Member ID Guarantor Name 03/09/2024 2 MEDICARE B-[place]: [facility] [employer] Bean Davila [id number] Bean Davila 03/09/2024 1 [place] [id number] Dianna Davila [id number] Bean Breauxs Notes Date Note Type Note Provider Name and Address Organization Details Recorded Time 03/09/2024 text/html 68 y/o male here with diarrhea for 2 weeks. Going 5-6 times per day, no improvement with pepto or imodium. No new medications or foods. No one else at home has been having symptoms SELINA Silvestre [address] [place], [address], [place] - [facility] 03/09/2024 14:11:08
== END 2024-08-21 12:08 | disposition home or self-care (01) ==
PROVIDERS: PCP Internal Medicine; Visit Provider Internal Medicine
DX: Z00.00 Encounter for general adult medical examination without abnormal findings (principal); E11.43 Type 2 diabetes mellitus with diabetic autonomic (poly)neuropathy; Z79.4 Long term (current) use of insulin; I48.0 Paroxysmal atrial fibrillation; E11.21 Type 2 diabetes mellitus with diabetic nephropathy; I10 Essential (primary) hypertension

== ENCOUNTER → 2024-10-22 08:41 | Outpatient (REF) | payer MEDICARE, SELFPAY ==
--- NOTE | 2024-10-22 08:44 | CA_ITS ---
Transthoracic Echocardiogram Patient (Last, First, Middle): Bean Davila K Gender: Male Date of : 1955 Age: 69 Procedure Date: 10/22/2024 Procedure Type: Transthoracic Echocardiogram Location: OP Height: 170.18 cm Weight: 88.45 kg BSA: 2.00 m2 Heart Rate: 93 bpm BP: 128 / 74 mmHg Die Sizer: DELMY Referring MD: Fabrice Akhtar MD Film Librarian: Fabrice Akhtar MD Symptoms: I50.9 - Heart failure, unspecified Study Quality: Fair/pt term exam ECG Rhythm: Sinus Conclusions: - 1. Low normal LV ejection fraction 50-55% with grade 2 diastolic dysfunction 2. Cardiac valvular Dopplers within normal limits Findings Procedure Information The quality of the study was technically difficult. The study quality is limited by the patients inability to tolerate the test. The patient declines contrast. Left Ventricle The left ventricle was not well visualized. Normal left ventricular cavity size. There is normal left ventricular wall thickness. The left ventricular systolic function is low normal. The visually estimated ejection fraction is between 50-55%. Regional wall motion abnormalities can not be excluded due to suboptimal endocardial definition. There is paradoxical septal motion consistent with post-operative status. Spectral Doppler is indicative of a pseudonormal filling pattern. E/E prime ratio is >15, consistent with elevated filling pressures. Evidence suggests grade II (moderate) diastolic dysfunction. Right Ventricle The right ventricle was not well visualized. Atria The left atrium is likely dilated. There is no evidence of interatrial shunt. The right atrium was not well visualized. Aortic Valve The aortic valve was not well visualized. There is no aortic valve stenosis. There is no aortic valve regurgitation. Mitral Valve The mitral valve was not well visualized. There is trace mitral valve regurgitation. There is no mitral valve stenosis. Pulmonic Valve The pulmonic valve was not well visualized. Tricuspid Valve The tricuspid valve was not well visualized. Tricuspid regurgitation envelope is inadequate for calculation of right ventricular systolic pressure. Indeterminate right atrial pressure. Great Vessels The aorta was not well visualized. The pulmonary artery was not well visualized. Small plaque is seen in the sino tubular ridge. Venous The inferior vena cava was not well visualized. Pericardium/Pleural The pericardium was not well visualized. Prior Study Comparison Changes noted compared to prior study dated: 05/30/2023. LV ejection fraction is low normal Recommendations, Care & Conclusions Recommend contrast in the future to improve endocardial definition. Measurements 2D Linear Measurements IVSd: 0.94 0.6-0.9/0.6-1.0 cm LVIDd: 4.60 3.9-5.3/4.2-5.9 cm LVIDd Index: 2.30 2.4-3.2/2.2-3.1 cm/m2 LVIDs: 3.60 2.0-3.6 cm LVPWd: 0.77 0.7-1.1 cm LA Diam: 4.10 2.7-3.8/3.0-4.0 cm LAIDs Index: 2.05 1.5-2.3 cm/m2 LV Mass: 159.94 67-162/88-224 g LV Mass Index: 79.97 43-95/49-115 g/m2 LVOT Diam: 2.20 3.0+(-)1.3 cm Mitral Valve MV Pk E: 1.00 MV PK A: 0.38 MV Decel Time: 192.00 E/A: 2.60 E'Lateral: 8.59 E'Medial: 4.57 E/E' Med: 21.80 E/E' Lat: 11.60 PHT: 56.00 MVA PHT: 3.93 Decel Calloway: 5.21 Aortic Valve AoV Pk Alfredo: 1.24 AoV Pk Grad: 6.00 MIKE: 2.90 LVOT LVOT Pk Alfredo: 0.91 LVOT Mn Alfredo: 0.64 LVOT VTI: 0.19 LVOT Pk Grad: 3.00 LVOT Mn Grad: 2.00 LVOT Diam: 2.20 LVOT Area: 3.80 Diastolic Function MV Pk E: 1.00 MV Pk A: 0.38 E/A: 2.60 E'Medial: 4.57 E/E' Med: 21.80 E' Laterial: 8.59 E/E' Lat: 11.60 Right Ventricle TAPSE (mm): 13.10 TVS' Alfredo: 10.00 Tricuspid Valve RA Press: 8.00 Great Vessels Aorta Sinus of Valsalva: 2.90 2.0-3.5 cm Ao Asc: 3.40 2.1-3.4 cm Pulmonary Veins Pulm Vein S/D 0.40 Pulmonary Valve PV Pk Alfredo: 0.98 Peak PV Grad: 4.00 Updated in Other Vendor System with Status of Final Fabrice Akhtar MD electronically signed on 10/23/2024 2:23:42 PM with status of Final
--- OUTSIDE RECORDS SUMMARY | 2024-10-22 09:15 | XMS_ITS | Clinical Summary ---
Author Organization [facility] Facility Address [address] [place] [address], [place] [address] Care Team Providers Care [employer] Name Role Phone Unavailable Primary Care Provider [...] age to complete this topic Insurance MEDICARE [facility] MEDICARE [facility]
--- OUTSIDE RECORDS SUMMARY | 2024-10-22 09:15 | XMS_ITS | Data Portability ---
Author Organization [facility], [address] Address [address] [place] [address] Assessment No assessment recorded. Plan of Treatment Reminders Order Date Submit Date Provider Last Modified By Organization Details Last Modified Time Details Appointments None recorded. Lab urinalysis, dipstick 2023 [email or web address] _[facility], [address] [place] [address], [address], 14:07:53 Referral None recorded. Procedures None recorded. Surgeries None recorded. Imaging None recorded. Medication Orders ciprofloxac in 500 mg tablet 2023 024 [id number], [address] [place], [place], [phone], 14:07:59 metronidazo le 500 mg tablet 2023 024 [facility] #34280, [address] [place], [place], [phone], 14:07:58 Patient TargetsNo targets recorded. Patient Instructions Encounter Date Encounter Id Patient Instructions Last Modified By Organization Details Last Modified Time 03/09/2024 [id number] diarrhea: care instructions [email or web address] Not available 03/09/2024 [...] = light yellow Not Available beckie porras [address] [place], [address], 03/09/2024 13:54:58 03/09/2003/09/2024 urina lysis , dipst ick Unknown Analyte Dark Yellow Not Available beckie porras [address] [place], [address], 03/09/2024 13:54:58 03/09/2003/09/2024 urina lysis , dipst ick Unknown Analyte Normal = clear Not Available beckie porras [address] [place], [address], 03/09/2024 13:54:58 03/09/2003/09/2024 urina lysis , dipst ick Unknown Analyte Slight ly Cloudy Not Available beckie porras [address] [place], [address], 03/09/2024 13:54:58 03/09/2003/09/2024 urina lysis , dipst ick Unknown Analyte Normal = negati ve Not Available beckie porras [address] [place], [address], 03/09/2024 13:54:58 03/09/2003/09/2024 urina lysis , dipst ick Unknown Analyte 500 mg/dL Not Available beckie porras [address] [place], [address], 03/09/2024 13:54:58 03/09/2003/09/2024 urina lysis , dipst ick Unknown Analyte Normal = Negati ve Not Available beckie porras [address] [place], [address], 03/09/2024 13:54:58 03/09/2003/09/2024 urina lysis , dipst ick Unknown Analyte Small Not Available _ alex [address] [place], [address], 03/09/2024 13:54:58 03/09/2003/09/2024 urina lysis , dipst ick Unknown Analyte Normal = Negati ve Not Available beckie porras [address] [place], [address], 03/09/2024 13:54:58 03/09/2003/09/2024 urina lysis , dipst ick Unknown Analyte Trace Not Available [place] [address] [place], [address], 03/09/2024 13:54:58 03/09/20 24 03/09/2024 urina lysis , dipst ick Unknown Analyte Normal = 1.010, 1.015, 1.020 Not Available beckie porras [address] [place], [address], 03/09/2024 13:54:58 03/09/20 24 03/09/2024 urina lysis , dipst ick Unknown Analyte 1.010 Not Available [place] [address] [place], [address], 03/09/2024 13:54:58 03/09/2003/09/2024 urina lysis , dipst ick Unknown Analyte Normal = Negati ve Not Available beckie porras [address] [place], [address], 03/09/2024 13:54:58 03/09/2003/09/2024 urina lysis , dipst ick Unknown Analyte Negati ve Not Available beckie porras [address] [place], [address], 03/09/2024 13:54:58 03/09/2003/09/2024 urina lysis , dipst ick Unknown Analyte Normal = 6.5, 7.0, 7.5, 8.0 Not Available beckie porras [address] [place], [address], 03/09/2024 13:54:58 03/09/2003/09/2024 urina lysis , dipst ick Unknown Analyte 5.5 Not Available [place] [address] [place], [address], 03/09/2024 13:54:58 03/09/2003/09/2024 urina lysis , dipst ick Unknown Analyte Normal = Negati ve Not Available beckie porras [address] [place], [address], 03/09/2024 13:54:58 03/09/2003/09/2024 urina lysis , dipst ick Unknown Analyte Negati ve Not Available beckie porras [address] [place], [address], 03/09/2024 13:54:58 03/09/2003/09/2024 urina lysis , dipst ick Unknown Analyte Normal = 0.2, 1.0 Not Available beckie porras [address] [place], [address], 03/09/2024 13:54:58 03/09/2003/09/2024 urina lysis , dipst ick Unknown Analyte 0.2 E.U./d L Not Available beckie porras [address] [place], [address], 03/09/2024 13:54:58 03/09/20 24 03/09/2024 urina lysis , dipst ick Unknown Analyte Normal = Negati ve Not Available _beckie porras [facility] [address] [place], [address], 03/09/2024 13:54:58 03/09/20 24 03/09/2024 urina lysis , dipst ick Unknown Analyte Negati ve Not Available beckie porras [facility] [address] [facility] [place], [address], 03/09/2024 13:54:58 03/09/2003/09/2024 urina lysis , dipst ick Unknown Analyte Normal = Negati ve Not Available beckie porras [place] [address] [place], [address], 03/09/2024 13:54:58 03/09/20 24 03/09/2024 urina lysis , dipst ick Unknown Analyte Negati ve Not Available beckie porras [address] [place], [address], 03/09/2024 13:54:58 Result Notes None recorded. Problems Name Problem SNOMED Code Status Onset Date Resolution Date Notes Provider Name and Address Organization Details Recorded Time Stented artery 929696059 Active 2023 SELINA Silvestre [address], [place], [address], [place] - [facility] 4 14:05:38 Hyperlipidemia 90872122 Active 2023 SELINA [place], [address], [place] - [facility] 4 14:05:50 Type 2 diabetes mellitus 91172304 Active 2023 SELINA Silvestre [place], [place], [address], [place] - [facility] 4 14:05:55 Hypertensive disorder 57755364 Active 2023 SELINA Silvestre [address] [place], [address] , [place] - [facility] 4 14:06:00 Problem Notes None recorded. Medical Equipment None Reported. Allergies Allergen ID Allergen Name Allergen Category Reaction Reaction Severity Criticality Documentation Date Start Date Code Code System Note Provider Name and Address Organization Details Recorded Time 826437 codeine medicatio n Not available Not available [...] Not Available Vitals Date Recorded Body height Body mass index (BMI) Body weight Oxygen saturation Oxygen saturation in Arterial blood by Pulse oximetry Heart rate Respiratory rate Systolic blood pressure Diastolic blood pressure Provider Name and Address Organization Details Last Updated DateTime 4 170.18 cm 29 kg/m2 99995.5 9 g 97 % 97 % 79 /min 18 /min 137 mm[Hg] 82 mm[Hg] Elizabeth Patrick PA - [facility] 13:54:45 Social History Question Answer Notes LastModified by Organizat ion Details LastModified Time Tobacco Smoking Status Never Smoker Elizabethfederico basurto PA - [facility] 03/09/2024 13:52:08 What [...] [facility] 03/09/2024 13:48:41 Pneumococcal conjugate PCV20, polysaccharide FAN330 conjugate, adjuvant, PF 2 completed Elizabeth Celina null, PA - [facility] 03/09/2024 13:48:41 Influenza, split virus, quadrivalent, PF 8 completed Elizabeth Celina null, PA - [facility] 03/09/2024 13:48:41 Influenza, split virus, quadrivalent, PF 0 completed Elizabeth Celina null, PA - [facility] 03/09/2024 13:48:41 Influenza, split virus, quadrivalent, PF 1 completed Elizabeth Celina null, PA - [facility] 03/09/2024 13:48:41 Past Encounters Encounter ID Performer Location Encounter Start Date Encounter Closed Date Diagnosis/Indication Diagnosis SNOMED-CT Code Diagnosis ICD10 Code Diagnosis Note [id number] SELINA Silvestre [address] [place], [place] [address] [address] 03/09/2024 13:40:03 03/09/2024 14:10:03 Diarrhea 78826311 R19.7 Based on your presentati on and [...] require hospitaliz ation Thank you for using [facility] today, Please feel free to contact our [...] ID Guarantor Name 03/09/2024 2 [place]: [employer] SERVICES Bean Davila [id number] Bean Breauxs 03/09/2024 1 [place] [id number] Dianna Davila [id number] [facility] Notes Date Note Type Note Provider Name and Address Organization Details Recorded Time 03/09/2024 text/html 68 y/o male here with diarrhea for 2 weeks. Going 5-6 times per day, no improvement with pepto or imodium. No new medications or foods. No one else at home has been having symptoms SELINA Silvestre [address] [place], [address], [place] - [facility] 03/09/2024 14:11:08
== END ==
LOC: HO.CARD 08:41
PROVIDERS: PCP Internal Medicine; Visit Provider Internal Medicine Cardiovascular Disease
DX: I50.9 Heart failure, unspecified (principal)
CPT/HCPCS: 93306

== ENCOUNTER → 2024-10-22 08:44 | Outpatient (BNV) | payer MEDICARE, SELFPAY | PROVIDERS: PCP Internal Medicine; Visit Provider Internal Medicine Cardiovascular Disease | DX: I42.8 Other cardiomyopathies (principal) | CPT/HCPCS: 93306 ==

== ENCOUNTER 2024-11-04 09:26 | Outpatient (AMB) | payer MEDICARE, SELFPAY ==
[2024-11-04 09:44] VITALS: BP 160/90; PULSE 91; BMI 28.5
--- NOTE | 2024-11-04 09:44 | A.OFFVIS_ITS ---
Vital Signs 11/04/24 09:44 Height 5 ft 8 in Weight 187 lb 6.287 oz BMI 28.5 BP 160/90 H Blood Pressure Location Rt brachial Position Sitting Pulse 91 Intake Visit Reasons: 6 mth Intake Note: 6 month follow-up after echo Regional Administrative Assistant Required: No Allergies codeine [CODEINE] Allergy (Unknown, Verified 08/21/24 11:40) UNKNOWN Medication List - Last Reconciled 11/04/24 by Fabrice Akhtar MD atorvastatin 40 mg PO DAILY carvedilol 3.125 mg PO BID cyanocobalamin (vitamin B-12) 1,000 mcg PO DAILY 90 days dapagliflozin propanediol (Farxiga) 10 mg PO DAILY ferrous sulfate 324 mg PO BID 90 days flash glucose sensor (ShopVisibleStyle Sean 14 Day Sensor kit) every 14 days [freestyle sean reader As directed] insulin glargine-yfgn (Semglee (insulin glargine-yfgn) Pen) 35 units subcut BEDTIME insulin lispro (Humalog KwikPen (U-100) Insulin) 15 units subcut BID rivaroxaban (Xarelto) 15 mg PO QPM HPI Comments Details: Bean comes for follow-up. He said he feels nervous. Currently off medicines especially Entresto due to the cost or this was discontinued. Was eventually switch to valsartan but he is currently not taking valsartan. He also says his Xarelto as gone up in the [facility] was insurance change. He was not had any other cardiac symptoms. He continues to drink about 3 drinks every day. He was not had any bleeding issues or neurologic events. Renal function is improved. He denies any heart failure symptoms. No orthopnea, PND, leg edema. No exertional chest pain or worsening shortness of breath. No prolonged palpitation irregular heartbeat. No lightheadedness, syncope. His recent echocardiogram shows improved LV ejection fraction to 50-55% [facility] Medical History Heart failure with reduced ejection fraction Ischemic cardiomyopathy CAD (coronary artery disease) HTN (hypertension) Paroxysmal atrial fibrillation Diabetic nephropathy associated with type 2 diabetes mellitus Diabetes type 2, controlled Surgical History Stented coronary artery S/P CABG x 3 Family History Father CVD (cardiovascular disease) S/P triple vessel bypass Mother CVD (cardiovascular disease) Sudden cardiac Other Substance use disorder Social History Housing: Apartment Alcohol intake: current Alcohol intake frequency: 0-2 drinks per day Alcohol type: hard liquor Patient Tobacco Use Status: Former Tobacco user Tobacco use type: Cigarette Years Smoked: 20 years e-Cigarette/Vaping Use: Never Used service: No Current occupational status: retired Cognitive needs: No Hearing needs: No Vision needs: Yes Review of Systems Const Denies chills, Denies fatigue, Denies fever(s), Denies frequent falls, Denies weakness, Denies weight gain and Denies weight loss ENT Denies dizziness Card Denies chest pain, Denies leg edema, Denies lightheadedness, Denies palpitations, Denies dyspnea, Denies dyspnea on exertion, Denies orthopnea and Denies other (loss of consciousness) Resp Denies cough, Denies dyspnea and Denies dyspnea on exertion GI Denies hematochezia and Denies change in stool character Musc Denies abnormal gait, Denies muscle weakness, Denies numbness, Denies radiating pain into limb and Denies tingling Neuro Denies abnormal gait, Denies dizziness, Denies frequent falls, Denies numbness, Denies tingling and Denies weakness Endo Denies fatigue and Denies palpitations Physical Exam Vital Signs: Last Vital Signs Pulse 91 11/04/24 09:44 BP 160/90 H 11/04/24 09:44 BMI result Body Mass Index 28.5 Const General: cooperative, healthy appearing, comfortable and no acute distress Orientation/consciousness: patient oriented x3 Neck Neck: Yes normal visual inspection and Yes no JVD Resp Effort & Inspection: normal respiratory effort Auscultation: clear to auscultation bilaterally, no crackles, no rales, no rhonchi and no wheezes Cardio Jugular venous distension: no JVD Rate: regular rate Rhythm: regular rhythm Heart sounds: S1 normal heart sound present, S2 normal heart sound present, no murmurs and no rubs Skin Other: pale skin color Neuro General: patient oriented x3 Extrem General: Yes normal to inspection, No no pedal edema and No calf tenderness Psych Appearance: grossly normal Mental Status: mental status grossly normal Speech and movement: Normal speech and movement present Office Procedures EKG Details: EKG shows sinus tachycardia otherwise normal EKG 63094-Zppnnmpyzfnslromt, Complete Assessment & Plan Assessment & Plan (1) Ischemic cardiomyopathy: Code(s): I25.5 - Ischemic cardiomyopathy Category: Medical Plan: Ischemic cardiomyopathy improved LV ejection fraction since coronary artery bypass grafting and medical therapy. Overall no signs or symptoms of heart failure. Importance of medical therapy was discussed. His blood pressure is not well optimized and is currently off neurohormonal modulator with Entresto due to insurance issues. Advised him to start valsartan 80 mg b.i.d.. Increase carvedilol to 6.25 mg b.i.d.. Follow-up blood pressure check in 2 weeks along with BNP check. Signs and symptoms of heart failure were discussed. Importance of medical therapy was discussed. Continue rhythm control approach. (2) CAD (coronary artery disease): Code(s): I25.10 - Atherosclerotic heart disease of [place] coronary artery without angina pectoris Category: Medical Qualifiers: Coronary Disease-Associated Artery/Lesion type: [place] artery [place] vs. transplanted heart: [place] heart Associated angina: with stable angina Qualified Code(s): I25.118 - Atherosclerotic heart disease of [place] coronary artery with other forms of angina pectoris Plan: CAD with coronary artery bypass grafting. Continue aggressive medical therapy. Currently on full oral anticoagulation would avoid aspirin therapy due to prior anemia and bleeding risk. Continue aggressive blood pressure control. Advised to monitor blood pressure at home maintain a log. Increase medications as above. Continue high-intensity statin therapy with target goal LDL less than 70 mg/dL. Continue aggressive diabetes management goal hemoglobin A1c less than 7%. (3) Paroxysmal atrial fibrillation: Code(s): I48.0 - Paroxysmal atrial fibrillation Category: Medical Plan: Paroxysmal atrial fibrillation without any obvious recurrence at this point time. Continue rhythm control approach. Continue carvedilol therapy. Avoidance of stimulants was discussed. Avoidance of alcohol was discussed. Continue full oral anticoagulation, due to cost issue will switch Xarelto to dabigatran 150 mg b.i.d.. Quarterly renal function test should be pursued. Will follow up in the clinic in 6 months time, sooner p.r.n.. Thank you for allowing me to partake in his care Medications: New dabigatran etexilate 150 mg PO BID 60 caps 5RF carvedilol (Coreg) must administer with a meal/food 6.25 mg PO BID 60 tabs 5RF valsartan 80 mg PO BID 60 tabs 5RF Discontinued rivaroxaban (Xarelto) Discontinued Reason: Doctor's Order 15 mg PO QPM 90 tabs 2RF carvedilol Discontinued Reason: Doctor's Order 3.125 mg PO BID 180 tabs 3RF Coding Level of Care Code Est Pt Level 4 (14181) Complex EM visit Add On G2211 Diagnoses Ischemic cardiomyopathy I25.5 Coronary artery disease of [place] artery of [place] heart with stable angina pectoris I25.118 Coronary Disease-Associated Artery/Lesion type: [place] artery [place] vs. transplanted heart: [place] heart Associated angina: with stable angina Paroxysmal atrial fibrillation I48.0 CPT Codes EKG - CPT: 67116-Fqpzxoeomaxxkudjx, Complete ([id number])
--- OUTSIDE RECORDS SUMMARY | 2024-11-04 10:37 | XMS_ITS | Data Portability ---
Author Organization [facility], [address] Address [address] [place] [address] Assessment No assessment recorded. Plan of Treatment Reminders Order Date Submit Date Provider Last Modified By Organization Details Last Modified Time Details Appointments None recorded. Lab urinalysis, dipstick 2023 [email or web address] _[facility], [address] [place] [address], [address], 14:07:53 Referral None recorded. Procedures None recorded. Surgeries None recorded. Imaging None recorded. Medication Orders ciprofloxac in 500 mg tablet 2023 024 [facility]33583, [address] [place], [place], [id number], 14:07:59 metronidazo le 500 mg tablet 2023 024 [facility] #00339, [address], [place], [phone], 14:07:58 Patient TargetsNo targets recorded. Patient Instructions Encounter Date Encounter Id Patient Instructions Last Modified By Organization Details Last Modified Time 03/09/2024 [id number] diarrhea: care instructions [email or web address] Not available 03/09/2024 [...] = light yellow Not Available beckie porras [address] [place], [address], 03/09/2024 13:54:58 03/09/2003/09/2024 urina lysis , dipst ick Unknown Analyte Dark Yellow Not Available beckie porras [address] [place], [address], 03/09/2024 13:54:58 03/09/2003/09/2024 urina lysis , dipst ick Unknown Analyte Normal = clear Not Available beckie porras [address] [place], [address], 03/09/2024 13:54:58 03/09/2003/09/2024 urina lysis , dipst ick Unknown Analyte Slight ly Cloudy Not Available beckie porras [address] [place], [address], 03/09/2024 13:54:58 03/09/2003/09/2024 urina lysis , dipst ick Unknown Analyte Normal = negati ve Not Available beckie porras [address] [place], [address], 03/09/2024 13:54:58 03/09/2003/09/2024 urina lysis , dipst ick Unknown Analyte 500 mg/dL Not Available beckie porras [address] [place], [address], 03/09/2024 13:54:58 03/09/2003/09/2024 urina lysis , dipst ick Unknown Analyte Normal = Negati ve Not Available beckie porras [address] [place], [address], 03/09/2024 13:54:58 03/09/2003/09/2024 urina lysis , dipst ick Unknown Analyte Small Not Available _ alex [address] [place], [address], 03/09/2024 13:54:58 03/09/2003/09/2024 urina lysis , dipst ick Unknown Analyte Normal = Negati ve Not Available beckie porras [address] [place], [address], 03/09/2024 13:54:58 03/09/2003/09/2024 urina lysis , dipst ick Unknown Analyte Trace Not Available alex [address] [place], [address], 03/09/2024 13:54:58 03/09/20 24 03/09/2024 urina lysis , dipst ick Unknown Analyte Normal = 1.010, 1.015, 1.020 Not Available beckie porras [address] [place], [address], 03/09/2024 13:54:58 03/09/20 24 03/09/2024 urina lysis , dipst ick Unknown Analyte 1.010 Not Available alex [address] [place], [address], 03/09/2024 13:54:58 03/09/2003/09/2024 urina lysis , dipst ick Unknown Analyte Normal = Negati ve Not Available beckie porras [address] [place], [address], 03/09/2024 13:54:58 03/09/2003/09/2024 urina lysis , dipst ick Unknown Analyte Negati ve Not Available beckie porras [address] [place], [address], 03/09/2024 13:54:58 03/09/2003/09/2024 urina lysis , dipst ick Unknown Analyte Normal = 6.5, 7.0, 7.5, 8.0 Not Available beckie porras [address] [place], [address], 03/09/2024 13:54:58 03/09/2003/09/2024 urina lysis , dipst ick Unknown Analyte 5.5 Not Available [place] [address] [place], [address], 03/09/2024 13:54:58 03/09/2003/09/2024 urina lysis , dipst ick Unknown Analyte Normal = Negati ve Not Available beckie porras [address] [place], [address], 03/09/2024 13:54:58 03/09/2003/09/2024 urina lysis , dipst ick Unknown Analyte Negati ve Not Available beckie porras [address] [place], [address], 03/09/2024 13:54:58 03/09/2003/09/2024 urina lysis , dipst ick Unknown Analyte Normal = 0.2, 1.0 Not Available beckie porras [address] [place], [address], 03/09/2024 13:54:58 03/09/2003/09/2024 urina lysis , dipst ick Unknown Analyte 0.2 E.U./d L Not Available beckie porras [address] [place], [address], 03/09/2024 13:54:58 03/09/20 24 03/09/2024 urina lysis , dipst ick Unknown Analyte Normal = Negati ve Not Available _beckie porras [facility] [address] [place], [address], 03/09/2024 13:54:58 03/09/20 24 03/09/2024 urina lysis , dipst ick Unknown Analyte Negati ve Not Available beckie porras [facility] [address] [place], [address], 03/09/2024 13:54:58 03/09/2003/09/2024 urina lysis , dipst ick Unknown Analyte Normal = Negati ve Not Available beckie porras [place] [address] [place], [address], 03/09/2024 13:54:58 03/09/20 24 03/09/2024 urina lysis , dipst ick Unknown Analyte Negati ve Not Available beckie porras [address] [place], [address], 03/09/2024 13:54:58 Result Notes None recorded. Problems Name Problem SNOMED Code Status Onset Date Resolution Date Notes Provider Name and Address Organization Details Recorded Time Stented artery 500592765 Active 2023 SELINA Silvestre [address] [place], [address], [place] - [facility] 4 14:05:38 Hyperlipidemia 67405469 Active 2023 SELINA Silvest[place], [address], [place] - [facility] 4 14:05:50 Type 2 diabetes mellitus 03739815 Active 2023 SELINA Silvestre [place], [place], [address], [place] - [facility] 4 14:05:55 Hypertensive disorder 95437879 Active 2023 SELINA Silvestre [address] [place], [address] , [place] - [facility] 4 14:06:00 Problem Notes None recorded. Medical Equipment None Reported. Allergies Allergen ID Allergen Name Allergen Category Reaction Reaction Severity Criticality Documentation Date Start Date Code Code System Note Provider Name and Address Organization Details Recorded Time 866738 codeine medicatio n Not available Not available [...] Updated DateTime 4 170.18 cm 29 kg/m2 60247.5 9 g 97 % 97 % 79 [...] [facility] 03/09/2024 13:48:41 Pneumococcal conjugate PCV20, polysaccharide IJO339 conjugate, adjuvant, PF 2 completed Elizabeth Celina [...] SNOMED-CT Code Diagnosis ICD10 Code Diagnosis Note [id number] SELINA Silvestre [address] [place], [place] [address] [address] 03/09/2024 13:40:03 03/09/2024 14:10:03 Diarrhea 40239927 R19.7 Based on your presentati on and [...] ID Guarantor Name 03/09/2024 2 [place] B[place]: [employer] Bean Davila [id number] Bean Breauxs 03/09/2024 1 [place] [id number] Dianna Davila [id number] 53 [facility] Notes Date Note Type Note Provider Name and Address Organization Details Recorded Time 03/09/2024 text/html 68 y/o male here with diarrhea for 2 weeks. Going 5-6 times per day, no improvement with pepto or imodium. No new medications or foods. No one else at home has been having symptoms SELINA Silvestre [address] [place], [address], [place] - [facility] 03/09/2024 14:11:08
--- OUTSIDE RECORDS SUMMARY | 2024-11-04 10:37 | XMS_ITS | Clinical Summary ---
Author Organization [facility] Facility Address [address] [place] [address], [place] [address] Care Team Providers Care Drone Operator Name Role Phone Unavailable Primary Care Provider [...] Pneumococcal Vaccine: 65+ Ye ars (1 of - PCV) 2021 Influenza Vaccine (Season Ended) 2025 Hepatitis B Vaccine Aged Out No longe r eligible based on patient's age to complete this topic Insurance MEDICARE [facility] MEDICARE [facility]
== END 2024-11-04 10:08 | disposition home or self-care (01) ==
PROVIDERS: PCP Internal Medicine; Visit Provider Internal Medicine Cardiovascular Disease
DX: I25.5 Ischemic cardiomyopathy (principal); I25.118 Atherosclerotic heart disease of native coronary artery with other forms of angina pectoris; I48.0 Paroxysmal atrial fibrillation
CPT/HCPCS: 93010; 99214; G2211

== ENCOUNTER → 2024-11-04 09:26 | Outpatient (BNVA) | payer MEDICARE, SELFPAY | PROVIDERS: PCP Internal Medicine; Visit Provider Internal Medicine Cardiovascular Disease | DX: I25.5 Ischemic cardiomyopathy (principal); I25.118 Atherosclerotic heart disease of native coronary artery with other forms of angina pectoris; I48.0 Paroxysmal atrial fibrillation | CPT/HCPCS: 93005; 99212 ==

== ENCOUNTER 2024-11-19 09:16 | Outpatient (REF) | payer MEDICARE, SELFPAY ==
--- OUTSIDE RECORDS SUMMARY | 2024-11-19 10:49 | XMS_ITS | Clinical Summary ---
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
--- OUTSIDE RECORDS SUMMARY | 2024-11-19 10:49 | XMS_ITS | Data Portability ---
Author Organization [facility], [address] Address [address] [place] [address] Assessment No assessment recorded. Plan of Treatment Reminders Order Date Submit Date Provider Last Modified By Organization Details Last Modified Time Details Appointments None recorded. Lab urinalysis, dipstick 2023 [email or web address] _[facility], [address] [place] [address], [address], 14:07:53 Referral None recorded. Procedures None recorded. Surgeries None recorded. Imaging None recorded. Medication Orders ciprofloxac in 500 mg tablet 2023 024 [id number], [address] [place], [place], [id number], 14:07:59 metronidazo le 500 mg tablet 2023 024 [facility] #[id number], [address] [place], [place], [id number], 14:07:58 Patient TargetsNo targets recorded. Patient Instructions Encounter Date Encounter Id Patient Instructions Last Modified By Organization Details Last Modified Time 03/09/2024 [id number] diarrhea: care instructions [email or web address] Not available 03/09/2024 [...] = light yellow Not Available beckie porras [address] [place], [address], 03/09/2024 13:54:58 03/09/2003/09/2024 urina lysis , dipst ick Unknown Analyte Dark Yellow Not Available beckie porras [address] [place], [address], 03/09/2024 13:54:58 03/09/2003/09/2024 urina lysis , dipst ick Unknown Analyte Normal = clear Not Available beckie porras [address] [place], [address], 03/09/2024 13:54:58 03/09/2003/09/2024 urina lysis , dipst ick Unknown Analyte Slight ly Cloudy Not Available beckie porras [address] [place], [address], 03/09/2024 13:54:58 03/09/2003/09/2024 urina lysis , dipst ick Unknown Analyte Normal = negati ve Not Available beckie porras [address] [place], [address], 03/09/2024 13:54:58 03/09/2003/09/2024 urina lysis , dipst ick Unknown Analyte 500 mg/dL Not Available beckie porras [address] [place], [address], 03/09/2024 13:54:58 03/09/2003/09/2024 urina lysis , dipst ick Unknown Analyte Normal = Negati ve Not Available beckie porras [address] [place], [address], 03/09/2024 13:54:58 03/09/2003/09/2024 urina lysis , dipst ick Unknown Analyte Small Not Available _ alex [address] [place], [address], 03/09/2024 13:54:58 03/09/2003/09/2024 urina lysis , dipst ick Unknown Analyte Normal = Negati ve Not Available beckie porras [address] [place], [address], 03/09/2024 13:54:58 03/09/2003/09/2024 urina lysis , dipst ick Unknown Analyte Trace Not Available alex [address] [place], [address], 03/09/2024 13:54:58 03/09/20 24 03/09/2024 urina lysis , dipst ick Unknown Analyte Normal = 1.010, 1.015, 1.020 Not Available beckie porras [address] [place], [address], 03/09/2024 13:54:58 03/09/20 24 03/09/2024 urina lysis , dipst ick Unknown Analyte 1.010 Not Available [address]lex [address] [place], [address], 03/09/2024 13:54:58 03/09/2003/09/2024 urina lysis , dipst ick Unknown Analyte Normal = Negati ve Not Available beckie porras [address] [place], [address], 03/09/2024 13:54:58 03/09/2003/09/2024 urina lysis , dipst ick Unknown Analyte Negati ve Not Available beckie porras [address] [place], [address], 03/09/2024 13:54:58 03/09/2003/09/2024 urina lysis , dipst ick Unknown Analyte Normal = 6.5, 7.0, 7.5, 8.0 Not Available beckie porras [address] [place], [address], 03/09/2024 13:54:58 03/09/2003/09/2024 urina lysis , dipst ick Unknown Analyte 5.5 Not Available [place]lex [address] [place], [address], 03/09/2024 13:54:58 03/09/2003/09/2024 urina lysis , dipst ick Unknown Analyte Normal = Negati ve Not Available beckie porras [address] [place], [address], 03/09/2024 13:54:58 03/09/2003/09/2024 urina lysis , dipst ick Unknown Analyte Negati ve Not Available beckie porras [address] [place], [address], 03/09/2024 13:54:58 03/09/2003/09/2024 urina lysis , dipst ick Unknown Analyte Normal = 0.2, 1.0 Not Available beckie porras [address] [place], [address], 03/09/2024 13:54:58 03/09/2003/09/2024 urina lysis , dipst ick Unknown Analyte 0.2 E.U./d L Not Available beckie porras [address] [place], [address], 03/09/2024 13:54:58 03/09/20 24 03/09/2024 urina lysis , dipst ick Unknown Analyte Normal = Negati ve Not Available _beckie porras [facility] [address] [place], [address], 03/09/2024 13:54:58 03/09/20 24 03/09/2024 urina lysis , dipst ick Unknown Analyte Negati ve Not Available beckie porras [facility] [address] [place], [address], 03/09/2024 13:54:58 03/09/2003/09/2024 urina lysis , dipst ick Unknown Analyte Normal = Negati ve Not Available beckie porras [place] [address] [place], [address], 03/09/2024 13:54:58 03/09/20 24 03/09/2024 urina lysis , dipst ick Unknown Analyte Negati ve Not Available beckie porras [address] [place], [address], 03/09/2024 13:54:58 Result Notes None recorded. Problems Name Problem SNOMED Code Status Onset Date Resolution Date Notes Provider Name and Address Organization Details Recorded Time Stented artery 475479853 Active 2023 SELINA Silvestre [address], [address], [place] - [facility] 4 14:05:38 Hyperlipidemia 37157800 Active 2023 SELINA [place], [address], [place] - [facility] 4 14:05:50 Type 2 diabetes mellitus 90678307 Active 2023 SELINA Silvestre [place], [place], [address], [place] - [facility] 4 14:05:55 Hypertensive disorder 72021695 Active 2023 SELINA Silvestre [address] [place], [address] , [place] - [facility] 4 14:06:00 Problem Notes None recorded. Medical Equipment None Reported. Allergies Allergen ID Allergen Name Allergen Category Reaction Reaction Severity Criticality Documentation Date Start Date Code Code System Note Provider Name and Address Organization Details Recorded Time 140160 codeine medicatio n Not available Not available [...] Updated DateTime 4 170.18 cm 29 kg/m2 67855.5 9 g 97 % 97 % 79 [...] [facility] 03/09/2024 13:48:41 Pneumococcal conjugate PCV20, polysaccharide [id number] conjugate, adjuvant, PF 2 completed Elizabeth Celina [...] SNOMED-CT Code Diagnosis ICD10 Code Diagnosis Note [id number] SELINA Silvestre [address] [place], [place] [address] [address] 03/09/2024 13:40:03 03/09/2024 14:10:03 Diarrhea 36090121 R19.7 Based on your presentati on and [...] ID Guarantor Name 03/09/2024 2 [place] [employer] Bean Davila [id number] Bean Breauxs 03/09/2024 1 [place] [id number] Dianna Davila [id number] Notes Date Note Type Note Provider Name and Address Organization Details Recorded Time 03/09/2024 text/html 68 y/o male here with diarrhea for 2 weeks. Going 5-6 times per day, no improvement with pepto or imodium. No new medications or foods. No one else at home has been having symptoms SELINA Silvestre [address] [place], [address], [place] - [facility] 03/09/2024 14:11:08
[2024-11-19 11:37] LABS: Appearance Urine Clear; Color Urine Yellow; Glucose Urine UA >=1000 mg/dL (Negative); Leukocyte Esterase Urine Negative (Negative); Nitrite Urine Negative (Negative); PH 5.5 (5.0-9.0); Specific Gravity - Urine 1.025 (1.005-1.025); UMIC TRIGGER UA YES; Urine Blood Negative (Negative); Urine Ketones Trace mg/dL (Negative); Urine Protein Negative (Neg-Trace)
[2024-11-19 11:55] LABS: Anion Gap 19 (12-20); Blood Urea Nitrogen 10 mg/dL (9-16); Calcium 9.1 mg/dL (8.4-10.2); Carbon Dioxide 26 mmol/L (22-29); Chloride 99 mmol/L (96-108); Estimated Glomerular Filt Rate > 60; Glucose Random 178 mg/dL (60-115); Potassium 4.1 mmol/L (3.3-5.1); Sodium 140 mmol/L (135-145)
[2024-11-19 12:05] LABS: Bacteria Urine None Seen (None Seen); Hyaline Casts Urine 0-2 /LPF (0-2); RBC Urine 0-2 /HPF (0-2); Squamous Epithelial Cell Urine 0-2 /HPF (0-2); WBC Urine 0-5 /HPF (0-5)
[2024-11-19 12:35] LABS: Creatinine Urine 80.78 mg/dL; Total Protein Urine Random 14 mg/dL (<12)
== END 2024-11-19 09:17 | disposition home or self-care (01) ==
LOC: HO.LAB 09:16
PROVIDERS: Absent Provider Internal Medicine Hypertension Specialist; PCP Internal Medicine; Visit Provider Internal Medicine Cardiovascular Disease
DX: N18.9 Chronic kidney disease, unspecified (principal)
CPT/HCPCS: 36415; 80048; 81001; 82570; 84156

== ENCOUNTER 2024-11-26 10:40 | Outpatient (AMB) | payer BC, SELFPAY ==
--- NOTE | 2024-11-26 10:46 | HO.NEPHOV ---
Vital Signs 11/26/24 10:47 Height 5 ft 8 in Weight 192 lb 2 oz BMI 29.2 BP 156/98 H Blood Pressure Location Rt brachial Position Sitting Pulse 90 Pulse Source Pulse Oximeter Pulse Oximetry (%) 95 Oxygen Delivery Method Room Air Intake Visit Reasons: 6mon follow up w/labs Allergies codeine [CODEINE] Allergy (Unknown, Verified 11/26/24 10:48) UNKNOWN Medication List - Last Reconciled 11/26/24 by Dick Contreras MD atorvastatin 40 mg PO DAILY carvedilol (Coreg) 6.25 mg PO BID cyanocobalamin (vitamin B-12) 1,000 mcg PO DAILY 90 days dabigatran etexilate 150 mg PO BID dapagliflozin propanediol (Farxiga) 10 mg PO DAILY ferrous sulfate 324 mg PO BID 90 days flash glucose sensor (FreeStyle Sean 14 Day Sensor kit) every 14 days [freestyle sean reader As directed] insulin glargine-yfgn (Semglee (insulin glargine-yfgn) Pen) 35 units subcut BEDTIME insulin lispro (Humalog KwikPen (U-100) Insulin) 15 units subcut BID valsartan 80 mg PO BID HPI Comments Details: Bean is a pleasant 69-year-old man with a history of diabetes mellitus and coronary disease. History of coronary angiogram in 08/19/2023 followed by stent placement. History of ischemic cardiomyopathy/congestive heart failure with a reduced ejection fraction. His baseline serum creatinine was around 1.1 mg/dL back in Jul 2023. After the coronary angiogram creatinine is bumped up to 1.5 and has remained in the range since August of 2023. He has had no change in urinary habits. No hematuria. No renal stones. No diarrhea constipation. No shortness of breath at rest. No nausea or vomiting. No rash. No arthralgias. 06/17/24;Overall doing OK;Foot pain - neuropathy 11/26/24 : Still has foot pain .Not on Lyrica BP is high today States that BP was lower at home. [facility] Medical History Heart failure with reduced ejection fraction Ischemic cardiomyopathy CAD (coronary artery disease) HTN (hypertension) Paroxysmal atrial fibrillation Diabetic nephropathy associated with type 2 diabetes mellitus Diabetes type 2, controlled Surgical History Stented coronary artery S/P CABG x 3 Family History Father CVD (cardiovascular disease) S/P triple vessel bypass Mother CVD (cardiovascular disease) Sudden cardiac Other Substance use disorder Social History Housing: Apartment Alcohol intake: current Alcohol intake frequency: 0-2 drinks per day Alcohol type: hard liquor Patient Tobacco Use Status: Former Tobacco user Tobacco use type: Cigarette Years Smoked: 20 years e-Cigarette/Vaping Use: Never Used service: No Current occupational status: retired Cognitive needs: No Hearing needs: No Vision needs: Yes Physical Exam Vital Signs: Last Vital Signs Pulse 90 11/26/24 10:47 BP 156/98 H 11/26/24 10:47 Pulse Ox 95 11/26/24 10:47 Oxygen Delivery Method Room Air 11/26/24 10:47 BMI result Body Mass Index 29.2 Const General: comfortable; No acute distress Orientation/consciousness: patient oriented x3 Eyes General: appearance normal, both eyes and all related structures Visual Ariza: normal visual ariza by confrontation Neck Neck: Yes supple and Yes no JVD Resp Effort & Inspection: normal respiratory effort and respiratory effort not decreased Cardio Palpation: no palpable S3 and no palpable S4 Heart sounds: no rubs GI Inspection: Yes normal to inspection Palpation (GI): Soft to palpation Percussion: Yes normal to percussion Auscultation: normal bowel sounds General: Yes no CVA tenderness Back/Spine/Pelvis Back: no CVA tenderness Skin General skin exam: no petechiae and no purpura Neuro General: patient oriented x3 and no focal motor deficits Extrem General: No clubbing and No edema Results Reviewed Nephrology Results: Hgb 15.7 g/dl (14.0-18.0) 08/21/24 WBC 6.4 X10*3/uL (4.8-10.8) 08/21/24 Plt Count 173 X10*3/uL (160-400) 08/21/24 Sodium 140 mmol/L (135-145) 11/19/24 Potassium 4.1 mmol/L (3.3-5.1) 11/19/24 Chloride 99 mmol/L (96-108) 11/19/24 Carbon Dioxide 26 mmol/L (22-29) 11/19/24 BUN 10 mg/dL (9-16) 11/19/24 Creatinine 0.92 mg/dL (0.5-1.4) 11/19/24 Calcium 9.1 mg/dL (8.4-10.2) 11/19/24 Urine Protein Negative mg/dL (Neg-Trace) 11/19/24 Urine Creatinine 80.78 mg/dL 11/19/24 Renal US 05/08/24 Assessment & Plan Assessment & Plan (1) HTN (hypertension): Code(s): I10 - Essential (primary) hypertension Category: Medical Qualifiers: Hypertension type: primary hypertension Qualified Code(s): I10 - Essential (primary) hypertension (2) CKD (chronic kidney disease): Code(s): N18.9 - Chronic kidney disease, unspecified Category: Medical Plan 69-year-old man with longstanding diabetes mellitus coronary disease and cardiomyopathy with chronic kidney disease. He has underlying chronic kidney disease most likely due to diabetic kidney disease. He has sustained acute kidney injury back in July 2023 The differential diagnosis would include contrast induced nephropathy leading to tubular injury. Other possibility would include cholesterol emboli seems less likely since renal function has returned to baseline No Obstructive uropathy based on ultrasonogram glomerular nephritis or interstitial disease seem unlikely based on the bland urinary sediments . Renal ultrasonogram shows normal kidney. Goal is to slow the progression of renal disease. Continue to avoid nephrotoxic agents. Agree with current medications including SGLT2 inhibitors. Optimize blood sugar Optimize blood pressure and avoid hypotension. BP is sub optimal. Encouraged to check BP at home. If SBP stays above 140, would suggest to increase Coreg or add Norvasc 5 mg QD Neuropathy Follow up with PCP Coding Level of Care Code Est Pt Level 4 (90499) Diagnoses Primary hypertension I10 Hypertension type: primary hypertension CKD (chronic kidney disease) N18.9
[2024-11-26 10:47] VITALS: BP 156/98; PULSE 90; O2SAT 95; BMI 29.2
--- OUTSIDE RECORDS SUMMARY | 2024-11-26 12:21 | XMS_ITS | Data Portability ---
Author Organization [facility], [facility] Address [address] [place] [address] Assessment No assessment recorded. Plan of Treatment Reminders Order Date Submit Date Provider Last Modified By Organization Details Last Modified Time Details Appointments None recorded. Lab urinalysis, dipstick 2023 [email or web address] _[facility], [address] [place] [address], [address], 14:07:53 Referral None recorded. Procedures None recorded. Surgeries None recorded. Imaging None recorded. Medication Orders ciprofloxac in 500 mg tablet 2023 024 [facility]85363, [address] [place], [place], [phone], 14:07:59 metronidazo le 500 mg tablet 2023 024 [facility] #61822, [address] [place], [place], [id number], 14:07:58 Patient TargetsNo targets recorded. Patient Instructions Encounter Date Encounter Id Patient Instructions Last Modified By Organization Details Last Modified Time 03/09/2024 [id number] diarrhea: care instructions [email or web address] Not available 03/09/2024 [...] = light yellow Not Available beckie porras [address] [place], [address], 03/09/2024 13:54:58 03/09/2003/09/2024 urina lysis , dipst ick Unknown Analyte Dark Yellow Not Available beckie porras [address] [place], [address], 03/09/2024 13:54:58 03/09/2003/09/2024 urina lysis , dipst ick Unknown Analyte Normal = clear Not Available beckie porras [address] [place], [address], 03/09/2024 13:54:58 03/09/2003/09/2024 urina lysis , dipst ick Unknown Analyte Slight ly Cloudy Not Available beckie porras [address] [place], [address], 03/09/2024 13:54:58 03/09/2003/09/2024 urina lysis , dipst ick Unknown Analyte Normal = negati ve Not Available beckie porras [address] [place], [address], 03/09/2024 13:54:58 03/09/2003/09/2024 urina lysis , dipst ick Unknown Analyte 500 mg/dL Not Available beckie porras [address] [place], [address], 03/09/2024 13:54:58 03/09/2003/09/2024 urina lysis , dipst ick Unknown Analyte Normal = Negati ve Not Available beckie porras [address] [place], [address], 03/09/2024 13:54:58 03/09/2003/09/2024 urina lysis , dipst ick Unknown Analyte Small Not Available _ alex [address] [place], [address], 03/09/2024 13:54:58 03/09/2003/09/2024 urina lysis , dipst ick Unknown Analyte Normal = Negati ve Not Available beckie porras [address] [place], [address], 03/09/2024 13:54:58 03/09/2003/09/2024 urina lysis , dipst ick Unknown Analyte Trace Not Available alex [address] [place], [address], 03/09/2024 13:54:58 03/09/20 24 03/09/2024 urina lysis , dipst ick Unknown Analyte Normal = 1.010, 1.015, 1.020 Not Available beckie porras [address] [place], [address], 03/09/2024 13:54:58 03/09/20 24 03/09/2024 urina lysis , dipst ick Unknown Analyte 1.010 Not Available alex [address] [place], [address], 03/09/2024 13:54:58 03/09/2003/09/2024 urina lysis , dipst ick Unknown Analyte Normal = Negati ve Not Available beckie porras [address] [place], [address], 03/09/2024 13:54:58 03/09/2003/09/2024 urina lysis , dipst ick Unknown Analyte Negati ve Not Available beckie porras [address] [place], [address], 03/09/2024 13:54:58 03/09/2003/09/2024 urina lysis , dipst ick Unknown Analyte Normal = 6.5, 7.0, 7.5, 8.0 Not Available beckie porras [address] [place], [address], 03/09/2024 13:54:58 03/09/2003/09/2024 urina lysis , dipst ick Unknown Analyte 5.5 Not Available alex [address] [place], [address], 03/09/2024 13:54:58 03/09/2003/09/2024 urina lysis , dipst ick Unknown Analyte Normal = Negati ve Not Available beckie porras [address] [place], [address], 03/09/2024 13:54:58 03/09/2003/09/2024 urina lysis , dipst ick Unknown Analyte Negati ve Not Available beckie porras [address] [place], [address], 03/09/2024 13:54:58 03/09/2003/09/2024 urina lysis , dipst ick Unknown Analyte Normal = 0.2, 1.0 Not Available beckie porras [address] [place], [address], 03/09/2024 13:54:58 03/09/2003/09/2024 urina lysis , dipst ick Unknown Analyte 0.2 E.U./d L Not Available beckie porras [address] [place], [address], 03/09/2024 13:54:58 03/09/20 24 03/09/2024 urina lysis , dipst ick Unknown Analyte Normal = Negati ve Not Available _beckie porras [facility] [address] [place], [address], 03/09/2024 13:54:58 03/09/20 24 03/09/2024 urina lysis , dipst ick Unknown Analyte Negati ve Not Available beckie porras [facility] [address] [place], [address], 03/09/2024 13:54:58 03/09/2003/09/2024 urina lysis , dipst ick Unknown Analyte Normal = Negati ve Not Available beckie porras [place] [address] [place], [address], 03/09/2024 13:54:58 03/09/20 24 03/09/2024 urina lysis , dipst ick Unknown Analyte Negati ve Not Available beckie porras [address] [place], [address], 03/09/2024 13:54:58 Result Notes None recorded. Problems Name Problem SNOMED Code Status Onset Date Resolution Date Notes Provider Name and Address Organization Details Recorded Time Stented artery 018578415 Active 2023 SELINA Silvestre [address], [address], [place] - [facility] 4 14:05:38 Hyperlipidemia 13244248 Active 2023 SELINA Silvestre [place], [address], [place] - [facility] 4 14:05:50 Type 2 diabetes mellitus 34951915 Active 2023 SELINA Silvestre [place], [place], [address], [place] - [facility] 4 14:05:55 Hypertensive disorder 88026946 Active 2023 SELINA Silvestre [address] [place], [address] , [place] - [facility] 4 14:06:00 Problem Notes None recorded. Medical Equipment None Reported. Allergies Allergen ID Allergen Name Allergen Category Reaction Reaction Severity Criticality Documentation Date Start Date Code Code System Note Provider Name and Address Organization Details Recorded Time 610449 codeine medicatio n Not available Not available [...] Updated DateTime 4 170.18 cm 29 kg/m2 88978.5 9 g 97 % 97 % 79 [...] [facility] 03/09/2024 13:48:41 Pneumococcal conjugate PCV20, polysaccharide QXA016 conjugate, adjuvant, PF 2 completed Elizabeth Celina [...] SNOMED-CT Code Diagnosis ICD10 Code Diagnosis Note [id number] SELINA Silvestre [address] [place], [place] [address] [address] 03/09/2024 13:40:03 03/09/2024 14:10:03 Diarrhea 56371495 R19.7 Based on your presentati on and [...] ID Guarantor Name 03/09/2024 2 [place] [email or web address] Bean Davila [id number] Bean Breauxs 03/09/2024 1 [place] [id number] Dianna Davila [id number] [facility] Notes Date Note Type Note Provider Name and Address Organization Details Recorded Time 03/09/2024 text/html 68 y/o male here with diarrhea for 2 weeks. Going 5-6 times per day, no improvement with pepto or imodium. No new medications or foods. No one else at home has been having symptoms SELINA Silvestre [address] [place], [address], [place] - [facility] 03/09/2024 14:11:08
--- OUTSIDE RECORDS SUMMARY | 2024-11-26 12:22 | XMS_ITS | Clinical Summary ---
Author Organization [facility] Facility Address [address] [place] [address], [place] [address] Care Team Providers Care Enterprise Systems Manager Name Role Phone Unavailable Primary Care Provider [...] age to complete this topic Insurance Medicare [facility] Medicare [facility]
== END 2024-11-26 11:07 | disposition home or self-care (01) ==
PROVIDERS: PCP Internal Medicine; Visit Provider Internal Medicine Hypertension Specialist
DX: I12.9 Hypertensive chronic kidney disease with stage 1 through stage 4 chronic kidney disease, or unspecified chronic kidney disease (principal); N18.9 Chronic kidney disease, unspecified
CPT/HCPCS: 99214

== ENCOUNTER 2025-05-13 08:18 | Outpatient (AMB) | payer MEDICARE, SELFPAY ==
--- OUTSIDE RECORDS SUMMARY | 2025-05-13 08:28 | XMS_ITS | Clinical Summary ---
Author Organization [facility] Facility Address [address] [address], [place] [address] Care Team Providers Care Heating And Refrigeration Inspector Name Role Phone Unavailable Primary Care Provider [...] Pneumococcal Vaccine: 50+ Ye ars (1 of 1 - PCV) 2006 Influenza Vaccine (#1) 2025 Hepatitis B Vaccine Aged Out No longe r eligible based on patient's age to complete this topic Insurance Medicare [facility] Medicare [facility]
--- OUTSIDE RECORDS SUMMARY | 2025-05-13 08:28 | XMS_ITS | Patient Health Record ---
Author Organization [facility] Address [address] [place] [address] Care Team Providers Care Systems Management Consultant Name Role Phone Augustin Asif Unavailable [phone] Reason For Referral No Information Plan Of Treatment No Information
[2025-05-13 08:35] VITALS: BP 142/80; PULSE 92; BMI 28.2
--- NOTE | 2025-05-13 08:35 | A.OFFVIS_ITS ---
Vital Signs 05/13/25 08:35 Height 5 ft 8 in Weight 185 lb 10.067 oz BMI 28.2 BP 142/80 H Blood Pressure Location Rt brachial Position Sitting Pulse 92 Pulse Source Pulse Oximeter Intake Visit Reasons: 6 mth f/u Intake Note: 6 month follow up Accompanied by: Self / Same As Patient Allergies codeine (CODEINE) Allergy (Unknown, Verified 05/13/25 08:38) UNKNOWN Medication List - Last Reconciled 05/13/25 by Fabrice Akhtar MD carvedilol 6.25 mg PO BID 90 days cyanocobalamin (vitamin B-12) 1,000 mcg PO DAILY 90 days dabigatran etexilate 150 mg PO BID dapagliflozin propanediol (Farxiga) 10 mg PO DAILY ferrous sulfate 324 mg PO BID 90 days flash glucose sensor (FreeStyle Sean 14 Day Sensor kit) every 14 days [freestyle sean reader As directed] insulin glargine-yfgn (Semglee (insulin glargine-yfgn) Pen) 35 units subcut BEDTIME insulin lispro (Humalog KwikPen (U-100) Insulin) 15 units subcut BID valsartan 80 mg PO BID HPI Comments Details: Bean comes for follow-up. Overall he has been doing well. Does not have any significant lightheadedness or syncope. But he said he has issues with balance any falls. Usually falls out of bed. Has neuropathy issues in both his feet. Denies any claudication symptoms. Denies any exertional chest pain. Also denies any significant shortness of breath. No orthopnea, PND, leg edema. Ta kes all his medications except for statins which is not currently on his list for some reason. Denies any prolonged palpitation irregular heartbeat. No bleeding issues or neurologic events. Unfortunately continues to drink alcohol. [facility] Medical History (Updated 05/13/25 @ 08:57 by Fabrice Akhtar MD) Heart failure Heart failure with reduced ejection fraction Ischemic cardiomyopathy CAD (coronary artery disease) HTN (hypertension) Paroxysmal atrial fibrillation Diabetic nephropathy associated with type 2 diabetes mellitus Diabetes type 2, controlled Surgical History Stented coronary artery S/P CABG x 3 Family History Father CVD (cardiovascular disease) S/P triple vessel bypass Mother CVD (cardiovascular disease) Sudden cardiac Other Substance use disorder Social History Housing: Apartment Alcohol intake: current Alcohol intake frequency: 0-2 drinks per day Alcohol type: hard liquor Patient Tobacco Use Status: Former Tobacco user Tobacco use type: Cigarette Years Smoked: 20 years e-Cigarette/Vaping Use: Never Used service: No Current occupational status: retired Cognitive needs: No Hearing needs: No Vision needs: Yes Review of Systems Const Denies daytime sleepiness, Denies difficulty sleeping, Denies snoring, Denies stops breathing during sleep and Denies weakness Card Denies chest pain, Denies rapid heart rate, Denies irregular heart rhythm, Denies claudication, Denies leg edema, Denies lightheadedness, Denies palpitations, Denies dyspnea, Denies dyspnea on exertion, Denies orthopnea, Denies paroxysmal nocturnal dyspnea and Denies slow heart rate Resp Denies cough, Denies dyspnea, Denies dyspnea on exertion and Denies snoring GI Reports no additional complaints, Denies hematochezia, Denies change in stool character and Denies dyspepsia Musc Denies abnormal gait, Denies muscle weakness and Denies numbness Neuro Denies abnormal gait, Denies numbness and Denies weakness Endo Denies palpitations Physical Exam Vital Signs: Last Vital Signs Pulse 92 05/13/25 08:35 BP 142/80 H 05/13/25 08:35 BMI result Body Mass Index 28.2 Const General: cooperative, healthy appearing, comfortable and no acute distress Orientation/consciousness: patient oriented x3 Neck Neck: Yes normal visual inspection and Yes no JVD Resp Effort & Inspection: normal respiratory effort Auscultation: clear to auscultation bilaterally, no crackles, no rales, no rhonchi and no wheezes Cardio Jugular venous distension: no JVD Rate: regular rate Rhythm: regular rhythm Heart sounds: S1 normal heart sound present, S2 normal heart sound present, no murmurs and no rubs Bruits: no carotid bruits Skin Other: pale skin color Neuro General: patient oriented x3 Extrem General: Yes normal to inspection, No no pedal edema and No calf tenderness Psych Appearance: grossly normal Mental Status: mental status grossly normal Speech and movement: Normal speech and movement present Assessment & Plan Assessment & Plan (1) CAD (coronary artery disease): Code(s): I25.10 - Atherosclerotic heart disease of [place] coronary artery without angina pectoris Category: Medical Qualifiers: Coronary Disease-Associated Artery/Lesion type: [place] artery [place] vs. transplanted heart: [place] heart Associated angina: with stable angina Qualified Code(s): I25.118 - Atherosclerotic heart disease of [place] coronary artery with other forms of angina pectoris Plan: CAD with surgical revascularization with no current symptoms concerning for angina or heart failure. Clinically doing well. He is currently on full oral anticoagulation with dabigatran would avoid antiplatelet therapy to reduce bleeding risk. He is currently not on any statin therapy and have represcribed high-intensity statin therapy to target goal LDL less than 60 mg/dL. Advised lipid panel in 2 months. Continue aggressive blood pressure control which is currently well optimized. Continue aggressive diabetes management goal hemoglobin A1c less than 7% being pursue through your office. Encouraged to continue to work on stopping alcohol at this might be contributing to his neuropathy symptoms. (2) Heart failure with recovered ejection fraction (HFrecEF): Code(s): I50.20 - Unspecified systolic (congestive) heart failure Category: Medical Plan: Heart failure with recovered ejection fraction, currently on good neurohormonal modulation with carvedilol, valsartan as well as Farxiga therapy. Clinically no signs of heart failure. Follow-up echocardiogram in 6 months time. Encouraged to continue to be compliant with medications and he is. Avoidance of alcohol was discussed. Signs and symptoms of heart failure were discussed. (3) Paroxysmal atrial fibrillation: Code(s): I48.0 - Paroxysmal atrial fibrillation Category: Medical Plan: Paroxysmal atrial fibrillation without any clinical recurrence at this point time. Continue full oral anticoagulation currently on dabigatran 150 mg b.i.d.. Quarterly renal function test should be pursued. May require change in therapy if his GFR drops below 30 mL/minute. Continue to avoid stimulants. Discontinuation of alcohol was discussed again. Will follow up in the clinic in 6 months time, sooner p.r.n.. Thank you for allowing me to partake in his care Orders: Orders CA echo transthoracic complete 6 Months I50.9 - Heart failure, unspecified Lipid Panel 2 Months I25.10 - Atherosclerotic heart disease of [place] coronary artery without angina pectoris, I25.118 - Atherosclerotic heart disease of [place] coronary artery with other forms of angina pectoris Medications: New atorvastatin (Lipitor) 40 mg PO DAILY 90 tabs 2RF Coding Level of Care Code Est Pt Level 4 (25478) Complex EM visit Add On G2211 Diagnoses Coronary artery disease of [place] artery of [place] heart with stable angina pectoris I25.118 Coronary Disease-Associated Artery/Lesion type: [place] artery [place] vs. transplanted heart: [place] heart Associated angina: with stable angina Heart failure with recovered ejection fraction (HFrecEF) I50.20 Paroxysmal atrial fibrillation I48.0
== END 2025-05-13 08:53 | disposition home or self-care (01) ==
LOC: HO.HCS 08:18
PROVIDERS: PCP Internal Medicine; Visit Provider Internal Medicine Cardiovascular Disease
DX: I25.118 Atherosclerotic heart disease of native coronary artery with other forms of angina pectoris (principal); I50.20 Unspecified systolic (congestive) heart failure; I48.0 Paroxysmal atrial fibrillation
CPT/HCPCS: 99214; G2211

== ENCOUNTER → 2025-05-13 08:18 | Outpatient (BNVA) | payer MEDICARE, SELFPAY | PROVIDERS: PCP Internal Medicine; Visit Provider Internal Medicine Cardiovascular Disease | DX: I25.118 Atherosclerotic heart disease of native coronary artery with other forms of angina pectoris (principal); I50.20 Unspecified systolic (congestive) heart failure; I48.0 Paroxysmal atrial fibrillation | CPT/HCPCS: 99212 ==

== ENCOUNTER 2025-05-21 10:20 | Outpatient (REF) | payer MEDICARE, SELFPAY ==
--- OUTSIDE RECORDS SUMMARY | 2025-05-21 12:48 | XMS_ITS | Patient Health Record ---
Author Organization [facility] Address [address] [place] [address] Care Team Providers Care Space Studies Faculty Member Name Role Phone Augustin Asif Unavailable [phone] Reason For Referral No Information Plan Of Treatment No Information
[2025-05-21 13:04] LABS: MANUAL DIFF FLAG NO
[2025-05-21 13:14] LABS: Hematocrit 41.6 % (42.0-52.0); Hemoglobin 14.1 g/dl (14.0-18.0); Imm Gran Abs Auto 0.03 X10*3/uL (0.00-0.03); Imm Gran Pct Auto 0.5 % (0.0-0.4); Lymphocytes Absolute Auto 0.9 X10*3/uL (1.2-4.9); Mean Corpuscular HGB Conc 33.9 g/dl (31.0-36.0); Mean Corpuscular Hemoglobin 36.6 pg (27.0-33.0); Mean Corpuscular Volume 108.1 fL (80.0-98.0); NRBC Abs Auto 0.000 X10*3/uL (0.0-0.012); NRBC Pct Auto 0.0 /100WBC (0.0-0.2); Platelet Count 149 X10*3/uL (160-400); Red Blood Count 3.85 X10*6/uL (4.60-5.80); White Blood Count 6.3 X10*3/uL (4.8-10.8)
[2025-05-21 13:46] LABS: Anion Gap 13 (12-20); Blood Urea Nitrogen 10 mg/dL (9-16); Calcium 8.9 mg/dL (8.4-10.2); Carbon Dioxide 31 mmol/L (22-29); Chloride 102 mmol/L (96-108); Estimated Glomerular Filt Rate > 60; Potassium 3.8 mmol/L (3.3-5.1); Sodium 142 mmol/L (135-145)
== END 2025-05-21 10:21 | disposition home or self-care (01) ==
LOC: HO.HMGCLDS 10:20
PROVIDERS: PCP Internal Medicine; Visit Provider Internal Medicine Hypertension Specialist
DX: N18.9 Chronic kidney disease, unspecified (principal)
CPT/HCPCS: 36415; 80048; 85025

== ENCOUNTER 2025-05-22 09:33 | Outpatient (AMB) | payer BC, SELFPAY ==
[2025-05-22 09:34] VITALS: BP 176/80; PULSE 77; O2SAT 94; BMI 27.8
--- NOTE | 2025-05-22 09:34 | HO.NEPHOV ---
Vital Signs 05/22/25 09:34 05/22/25 09:47 05/22/25 09:47 Height 5 ft 8 in Weight 183 lb BMI 27.8 BP 176/80 H 140/74 H 110/70 Blood Pressure Location Rt brachial Rt brachial Lt brachial Position Sitting Sitting Sitting Pulse 77 Pulse Source Pulse Oximeter Pulse Oximetry (%) 94 Oxygen Delivery Method Room Air Intake Visit Reasons: 6 MO FU Confirmed Director Of Student Aid Required: No Accompanied by: Self / Same As Patient Allergies codeine (CODEINE) Allergy (Unknown, Verified 05/22/25 09:35) UNKNOWN Medication List - Last Reconciled 05/22/25 by Dick Contreras MD atorvastatin (Lipitor) 40 mg PO DAILY carvedilol 6.25 mg PO BID 90 days cyanocobalamin (vitamin B-12) 1,000 mcg PO DAILY 90 days dabigatran etexilate 150 mg PO BID dapagliflozin propanediol (Farxiga) 10 mg PO DAILY ferrous sulfate 324 mg PO BID 90 days flash glucose sensor (BlazentStyle Sean 14 Day Sensor kit) every 14 days [freestyle sean reader As directed] insulin glargine-yfgn (Semglee (insulin glargine-yfgn) Pen) 35 units subcut BEDTIME insulin lispro (Humalog KwikPen (U-100) Insulin) 15 units subcut BID valsartan 80 mg PO BID HPI Comments Details: Bean is a pleasant 69-year-old man with a history of diabetes mellitus and coronary disease. History of coronary angiogram in 08/19/2023 followed by stent placement. History of ischemic cardiomyopathy/congestive heart failure with a reduced ejection fraction. His baseline serum creatinine was around 1.1 mg/dL back in Jul 2023. After the coronary angiogram creatinine is bumped up to 1.5 and has remained in the range since August of 2023. He has had no change in urinary habits. No hematuria. No renal stones. No diarrhea constipation. No shortness of breath at rest. No nausea or vomiting. No rash. No arthralgias. 06/17/24;Overall doing OK;Foot pain - neuropathy 11/26/24 : Still has foot pain .Not on Lyrica ;BP is high today ;States that BP was lower at home. 05/22/25 [facility] Medical History (Updated 05/13/25 @ 08:57 by Fabrice Akhtar MD) Heart failure Heart failure with reduced ejection fraction Ischemic cardiomyopathy CAD (coronary artery disease) HTN (hypertension) Paroxysmal atrial fibrillation Diabetic nephropathy associated with type 2 diabetes mellitus Diabetes type 2, controlled Surgical History Stented coronary artery S/P CABG x 3 Family History Father CVD (cardiovascular disease) S/P triple vessel bypass Mother CVD (cardiovascular disease) Sudden cardiac Other Substance use disorder Social History Housing: Apartment Alcohol intake: current Alcohol intake frequency: 0-2 drinks per day Alcohol type: hard liquor Patient Tobacco Use Status: Former Tobacco user Tobacco use type: Cigarette Years Smoked: 20 years e-Cigarette/Vaping Use: Never Used service: No Current occupational status: retired Cognitive needs: No Hearing needs: No Vision needs: Yes Physical Exam Vital Signs: Last Vital Signs Pulse 77 05/22/25 09:34 BP 176/80 H 05/22/25 09:34 Pulse Ox 94 05/22/25 09:34 Oxygen Delivery Method Room Air 05/22/25 09:34 BMI result Body Mass Index 27.8 Differential BP in both UE Comfortable Neck supple no JVD. Lungs entry equal no rales. Heart S1-S2 heard no gallop or rub. Abdomen soft nontender. Neuro alert awake oriented. No asterixis. Extremities no edema. Results Reviewed Nephrology Results: Hgb, (14.0-18.0) 14.1 g/dl 05/21/25 WBC, (4.8-10.8) 6.3 X10*3/uL 05/21/25 Plt Count, (160-400) 149 X10*3/uL L 05/21/25 Sodium, (135-145) 142 mmol/L 05/21/25 Potassium, (3.3-5.1) 3.8 mmol/L 05/21/25 Chloride, (96-108) 102 mmol/L 05/21/25 Carbon Dioxide, (22-29) 31 mmol/L H 05/21/25 BUN, (9-16) 10 mg/dL 05/21/25 Creatinine, (0.5-1.4) 0.79 mg/dL 05/21/25 Calcium, (8.4-10.2) 8.9 mg/dL 05/21/25 Urine Protein, (Neg-Trace) Negative mg/dL 11/19/24 Urine Creatinine 80.78 mg/dL 11/19/24 Renal US 05/08/24 Assessment & Plan Assessment & Plan (1) HTN (hypertension): Code(s): I10 - Essential (primary) hypertension Category: Medical Qualifiers: Hypertension type: primary hypertension Qualified Code(s): I10 - Essential (primary) hypertension (2) CKD (chronic kidney disease): Code(s): N18.9 - Chronic kidney disease, unspecified Category: Medical Plan 69-year-old man with longstanding diabetes mellitus coronary disease and cardiomyopathy with chronic kidney disease. He has underlying mild chronic kidney disease most likely due to diabetic kidney disease. He has sustained acute kidney injury back in July 2023 The differential diagnosis would include contrast induced nephropathy leading to tubular injury. Other possibility would include cholesterol emboli seems less likely since renal function has returned to baseline No Obstructive uropathy based on ultrasonogram glomerular nephritis or interstitial disease seem unlikely based on the bland urinary sediments . No proteinuria Renal ultrasonogram shows normal kidney. Goal is to slow the progression of renal disease. Continue to avoid nephrotoxic agents. Agree with current medications including SGLT2 inhibitors. Optimize blood sugar Optimize blood pressure and avoid hypotension. BP was initially sub optimal. Repeat BP acceptable Left arm BP lower than right arm Neuropathy Follow up with PCP Orders: Orders Basic Metabolic Panel 6 Months I10 - Essential (primary) hypertension Complete Blood Count no Diff Today I10 - Essential (primary) hypertension UA and rflx microscopic Today I10 - Essential (primary) hypertension Creatinine Urine Today I10 - Essential (primary) hypertension Total Protein Urine Random Today I10 - Essential (primary) hypertension Coding Level of Care Code Est Pt Level 4 (91898) Diagnoses Primary hypertension I10 Hypertension type: primary hypertension CKD (chronic kidney disease) N18.9
[2025-05-22 09:47] VITALS: BP 110/70; BP 140/74
--- OUTSIDE RECORDS SUMMARY | 2025-05-22 10:54 | XMS_ITS | Clinical Summary ---
Author Organization [facility] Address [address] [place] [address], [place] [address] Care Team Providers Care Automotive Artist Name Role Phone Unavailable Primary Care Provider [...]
--- OUTSIDE RECORDS SUMMARY | 2025-05-22 10:54 | XMS_ITS | Patient Health Record ---
Author Organization [facility] Address [address] [place] [phone] Care Team Providers Care Distribution Agent Name Role Phone Augustin Asif Unavailable [phone] Reason For Referral No Information Plan Of Treatment No Information
--- OUTSIDE RECORDS SUMMARY | 2025-05-22 10:54 | XMS_ITS | Data Portability ---
Author Organization [facility], [facility] Address [address] [place] [address] Assessment No assessment recorded. Plan of Treatment Reminders Order Date Submit Date Provider Last Modified By Organization Details Last Modified Time Details Appointments None recorded. Lab urinalysis, dipstick 2023 [email or web address] [facility], [address] [place] [address], [id number], 14:07:53 Referral None recorded. Procedures None recorded. Surgeries None recorded. Imaging None recorded. Medication Orders ciprofloxac in 500 mg tablet [address] [id number], [address] [place], [place], [phone], 14:07:59 metronidazo le 500 mg tablet [address] [facility] #[id number], [address] [place], [place], [phone], 14:07:58 Patient TargetsNo targets recorded. Patient Instructions Encounter Date Encounter Id Patient Instructions Last Modified By Organization Details Last Modified Time 03/09/2024 [id number] diarrhea: care instructions [email or web address] Not available 03/09/2024 [...] = light yellow Not Available beckie porras [place] [address] [place], [address], 03/09/2024 13:54:58 03/09/2003/09/2024 urina lysis , dipst ick Unknown Analyte Dark Yellow Not Available beckie porras [address] [place], [address], 03/09/2024 13:54:58 03/09/2003/09/2024 urina lysis , dipst ick Unknown Analyte Normal = clear Not Available [address]ckie porras [address] [place], [address], 03/09/2024 13:54:58 03/09/2003/09/2024 urina lysis , dipst ick Unknown Analyte Slight ly Cloudy Not Available beckie porras [address] [place], [address], 03/09/2024 13:54:58 03/09/2003/09/2024 urina lysis , dipst ick Unknown Analyte Normal = negati ve Not Available [address]ckie porras [address] [place], [address], 03/09/2024 13:54:58 03/09/2003/09/2024 urina lysis , dipst ick Unknown Analyte 500 mg/dL Not Available beckie porras [address] [place], [address], 03/09/2024 13:54:58 03/09/2003/09/2024 urina lysis , dipst ick Unknown Analyte Normal = Negati ve Not Available beckie porras [address] [place], [address], 03/09/2024 13:54:58 03/09/20 24 03/09/2024 urina lysis , dipst ick Unknown Analyte Small Not Available [place] [address] [place], [address], 03/09/2024 13:54:58 03/09/20 24 03/09/2024 urina lysis , dipst ick Unknown Analyte Normal = Negati ve Not Available beckie porras [address] [place], [address], 03/09/2024 13:54:58 03/09/2003/09/2024 urina lysis , dipst ick Unknown Analyte Trace Not Available [place] [address] [place], [address], 03/09/2024 13:54:58 03/09/20 24 03/09/2024 urina lysis , dipst ick Unknown Analyte Normal = 1.010, 1.015, 1.020 Not Available beckie porras [address] [place], [address], 03/09/2024 13:54:58 03/09/20 24 03/09/2024 urina lysis , dipst ick Unknown Analyte 1.010 Not Available [facility] [address] [place], [address], 03/09/2024 13:54:58 03/09/20 24 03/09/2024 urina lysis , dipst ick Unknown Analyte Normal = Negati ve Not Available beckie porras [address] [place], [address], 03/09/2024 13:54:58 03/09/20 24 03/09/2024 urina lysis , dipst ick Unknown Analyte Negati ve Not Available beckie porras [address] [place], [address], 03/09/2024 13:54:58 03/09/2003/09/2024 urina lysis , dipst ick Unknown Analyte Normal = 6.5, 7.0, 7.5, 8.0 Not Available beckie porras [address] [place], [address], 03/09/2024 13:54:58 03/09/2003/09/2024 urina lysis , dipst ick Unknown Analyte 5.5 Not Available [address] [place], [address], 03/09/2024 13:54:58 03/09/2003/09/2024 urina lysis , dipst ick Unknown Analyte Normal = Negati ve Not Available beckie porras [address] [place], [address], 03/09/2024 13:54:58 03/09/2003/09/2024 urina lysis , dipst ick Unknown Analyte Negati ve Not Available beckie porras [address] [place], [address], 03/09/2024 13:54:58 03/09/2003/09/2024 urina lysis , dipst ick Unknown Analyte Normal = 0.2, 1.0 Not Available beckie porras [address] [place], [address], 03/09/2024 13:54:58 03/09/2003/09/2024 urina lysis , dipst ick Unknown Analyte 0.2 E.U./d L Not Available beckie porras [address] [place], [address], 03/09/2024 13:54:58 03/09/2003/09/2024 urina lysis , dipst ick Unknown Analyte Normal = Negati ve Not Available _beckie por[facility] [address] [place], [address], 03/09/2024 13:54:58 03/09/2003/09/2024 urina lysis , dipst ick Unknown Analyte Negati ve Not Available _beckie [address] [place], [address], 03/09/2024 13:54:58 03/09/2003/09/2024 urina lysis , dipst ick Unknown Analyte Normal = Negati ve Not Available beckie porras [address] [place], [address], 03/09/2024 13:54:58 03/09/2003/09/2024 urina lysis , dipst ick Unknown Analyte Negati ve Not Available beckie porras [address] [place], [address], 03/09/2024 13:54:58 Result Notes None recorded. Problems Name Problem SNOMED Code Status Onset Date Resolution Date Notes Provider Name and Address Organization Details Recorded Time Stented artery 265330335 Active 2023 [place], [address], [place] - [facility] 14:05:38 Hyperlipidemia 69329795 Active 2023 SELINA [place], [address], [place] - [facility] 4 14:05:50 Type 2 diabetes mellitus 82680307 Active 2023 S[place], [address], [place] - [facility] 4 14:05:55 Hypertensive disorder 33552528 Active 2023 SELINA Silvestre [facility] [place], [address], [place] - [facility] 4 14:06:00 Problem Notes None recorded. Medical Equipment None Reported. Allergies Allergen ID Allergen Name Allergen Category Reaction Reaction Severity Criticality Documentation Date Start Date Code Code System Note Provider Name and Address Organization Details Recorded Time 447672 codeine medicatio n Not available Not available [...] Ultra-Fine Mini Pen Needle 31 gauge x 3/16 active Not Available Not Available Not Available [...] Pulse oximetry Heart rate Respiratory rate Systolic And Diastolic Provider Name and Address Organization Details Last Updated DateTime 4 170.18 cm 29 kg/m2 83053.5 9 g 97 % 97 % 79 /min 18 /min 137/82 mm[Hg] Elizabethfederico Patrick [place] - [facility] 13:54:45 Social History Question Answer Notes LastModified by Organizat ion Details LastModified Time Tobacco Smoking Status Never Smoker Elizabethfederico basurto [place] - [facility] 03/09/2024 13:52:08 Have You Recently Traveled Abroad? Yes Ericka 02/21-03/01 Information not available 03/09/2024 Sex: Unknown Functional Status Question Answer Note LastModified by Organizat ion Details LastModified Time Do you use any illicit or recreational drugs? No Information not available 03/09/2024 Do you or have you ever used any other forms of tobacco or nicotine? No Information not available 03/09/2024 What is your level of alcohol consumption? Occasional Information not available 03/09/2024 Mental Status None recorded. Family History Nothing [...] [facility] 03/09/2024 13:48:41 Pneumococcal conjugate PCV20, polysaccharide OVN982 conjugate, adjuvant, PF 2 completed Elizabeth Celina [...] Diagnosis SNOMED-CT Code Diagnosis ICD10 Code Diagnosis IMO Codes Diagnosis Note [id number] SELINA DENT [address] [place] [address] 03/09/2024 13:40:03 03/09/2024 14:10:03 Diarrhea 59853046 R19.7 Based on your presentati on and [...] due to infections and are self-limit ed.Acute 14 days or fewer in duration Persistent diarrhea more than 14 but fewer than 30 days in durationCh ronic more than 30 days in duration Diarrhea not related to an infection can occur as a side effect of antibiotic s or other drugs, food allergies, gastrointe stinal diseases such as inflammato ry bowel disease, and other diseases. The following are my recommenda tions to help with your symptoms:1 . Drink adequate fluids If you have mild to moderate diarrhea, you can usually be treated at home by drinking extra fluids. The fluids should contain water, salt, and sugar. Avoid Gatorade however, but Pedialyte is ok.2. Diet There is no particular food or group [...] vegetables may also be eaten.3. Preventing spread Adults with diarrhea should be cautious to [...] Recorded Advance Directives Directive None Recorded Payers Insurance Date Sequence Insurance Name Policy Number Policy Han Covered Member ID Han Member ID Guarantor Name 03/14/2024 2 [place] [employer]formerly [employer] SERVICES Bean Davila [id number] Bean Breauxs 03/14/2024 1 [place] [id number] Dianna Davila [id number] Notes Date Note Type Note Provider Name and Address Organization Details Recorded Time 03/09/2024 text/html 68 y/o male here with diarrhea for 2 weeks. Going 5-6 times per day, no improvement with pepto or imodium. No new medications or foods. No one else at home has been having symptoms SELIAN Silvestre [address] [place], [address], [place] - [facility] 03/09/2024 14:11:08
== END 2025-05-22 09:50 | disposition home or self-care (01) ==
LOC: HO.HKA 09:34
PROVIDERS: PCP Internal Medicine; Visit Provider Internal Medicine Hypertension Specialist
DX: I12.9 Hypertensive chronic kidney disease with stage 1 through stage 4 chronic kidney disease, or unspecified chronic kidney disease (principal); N18.9 Chronic kidney disease, unspecified
CPT/HCPCS: 99214